=== PATIENT | male | born 1940 | race Caucasian/White ===

== ENCOUNTER 2018-08-10 19:10 | Inpatient (IN) | END 2018-08-15 13:10 | disposition home health service (06) | DRG 871 ==

== ENCOUNTER 2019-01-28 17:01 | Inpatient (IN) | payer MEDICARE, OTHER ==
[2019-01-28] VITALS (8 sets, daily range): BP systolic 95; BP diastolic 50; PULSE 71–90; RESP 20; Ht 172.7 cm; Wt 67.9 kg
[~2019-01-28] VITALS: Ht 172.7 cm; Wt 67.9 kg
[~2019-01-28 17:01] MED LIST: DUTA0.5C PO; ENTA200T2 PO; ETOMIDATE 20 MG INJ ONE; GLIM4TAB PO; INSU100I31 SQ; LEVO750T8 PO; LINA1TAB7 PO; LOSA25TA2 PO; METO-335 PO; PRAM0.12 PO; RIVA20TA5 PO; ROCURONIUM 50 MG INJ ONE; TAMS0.4C2 PO
--- NOTE | 2019-01-28 17:10 | ERD ---
ER Documentation Chief Complaint Chief Complaint SOB HPI The patient is a 78-year-old male, presenting to the ER because of acute shor tness of breath for the last 2 days with cough. He is unable to provide any history, the history is obtained from the industrial photographer and medical record. Past medical history: Hypertension, diabetes mellitus, CAD, atrial fibrillation, depression, Parkinson disease, dementia, cardiomyopathy with low EF of 45%, BPH Past surgical history/social history/review system: Unable to obtain due to his condition Medications Home Meds Reported Medications Insulin Degludec (Tresiba Flextouch U-200) 200 Unit/1 Ml Insuln.pen, 0 SQ DAILY 18-20 UNITS 01/28/19 Linagliptin-Metformin (Jentadueto) 2.5-1,000 Mg Tablet, 1 TAB PO BID, TAB 01/28/19 Digoxin* (Digitek*) 250 Mcg Tablet, 0.25 MG PO DAILY, TAB 01/28/19 Propranolol Hcl* (Propranolol Hcl*) 20 Mg Tablet, 20 MG PO BID, TAB 01/28/19 Glimepiride* (Glimepiride*) 4 Mg Tablet, 4 MG PO WITH BREAKFAST DINNE, TAB 01/28/19 Losartan-Hydrochlorothiazide (Losartan-HCTZ) 50-12.5 Mg Tab, 1 TAB PO DAILY, TAB 01/28/19 Tamsulosin Hcl* (Tamsulosin Hcl*) 0.4 Mg Cap.er.24h, 0.4 MG PO HS, CAP 01/28/19 Entacapone* (Entacapone*) 200 Mg Tablet, 200 MG PO TID, TAB 01/28/19 Pramipexole* (Pramipexole*) 0.125 Mg Tablet, 0.125 MG PO DAILY, TAB 01/28/19 Dutasteride* (Avodart*) 0.5 Mg Capsule, 0.5 MG PO QAM, CAP 01/28/19 Rivaroxaban* (Xarelto*) 20 Mg Tablet, 20 MG PO WITH DINNER, TAB 01/28/19 Discontinued Reported Medications Insulin Degludec (Tresiba Flextouch U-100) 100 Unit/1 Ml Insuln.pen, 18-20 UNIT SQ DAILY 08/10/18 Glimepiride* (Glimepiride*) 4 Mg Tablet, 4 MG PO WITH BREAKFAST DINNE, TAB 08/10/18 Dutasteride* (Avodart*) 0.5 Mg Capsule, 0.5 MG PO DAILY, CAP 08/10/18 Linagliptin/Metformin HCl (Jentadueto Xr 2.5 mg-1,000 mg) 1 Each Tab.bp.24h, 1 EACH PO BID, TAB 08/10/18 Tamsulosin Hcl* (Tamsulosin Hcl*) 0.4 Mg Cap.er.24h, 0.4 MG PO HS, CAP 08/10/18 Pramipexole* (Pramipexole*) 0.125 Mg Tablet, 0.125 MG PO HS, TAB 08/10/18 Entacapone* (Entacapone*) 200 Mg Tablet, 200 MG PO TID, TAB 08/10/18 Discontinued Scripts Levofloxacin* (Levofloxacin*) 750 Mg Tablet, 750 MG PO DAILY for 8 Days, #8 TAB To complete 2 weeks therapy. Prov:PATO BELTRÁN NP 10/22/18 Rivaroxaban* (Xarelto*) 20 Mg Tablet, 20 MG PO WITH BREAKFAST, #30 TAB Prov:PATO BELTRÁN NP 10/22/18 Metoprolol Succinate* (Toprol XL*) 25 Mg Tab.sr.24h, 50 MG PO DAILY, #30 TAB Prov:PATO BELTRÁN NP 10/22/18 Losartan Potassium* (Cozaar*) 25 Mg Tablet, 25 MG PO DAILY, #30 TAB Prov:PATO BELTRÁN NP 10/22/18 Allergies Allergies: Coded Allergies: No Known Allergy (Unverified , 01/28/19) PMhx/Soc History of Surgery: No Hx Neurological Disorder: No Hx Respiratory Disorders: No Hx Cardiac Disorders: Yes (A-FIB) Hx Psychiatric Problems: Yes (DEPRESSION) Hx Miscellaneous Medical Probl: Yes (Parkinson's dz/dementia, Afib, ) Hx Substance Use: No Physical Exam Vitals Vital Signs Date Temp Pulse Resp B/P (MAP) Pulse Ox O2 O2 Flow FiO2 Time Delivery Rate 01/28/19 99.6 110 20 89/55 (66) 97 Mechanical 19:41 Ventilator 01/28/19 129 18 137/86 91 Mechanical 18:34 (103) Ventilator 01/28/19 113 100 40 18:12 3/18/19 139 20 117/81 100 17:38 (93) 01/28/19 20 100 17:20 Physical Exam Const: Spirits Model acute distress.Dehydrated Head: Atraumatic. Eyes: Normal Conjunctiva. ENT: Normal External Ears, Nose and Mouth. Neck: Full range of motion. No meningismus. Resp: Tachypneic, bilateral crackle Cardio: Irregularly irregular Abd: Soft, non distended, normal bowel sounds, non tender. Skin: No petechiae or rashes. Back: No midline or flank tenderness. Ext: Cyanosis Neur: Unable to perform due to his condition Psych: Unable to perform due to his condition Result Diagram: 01/28/19 1745 01/28/19 1745 Results 24 hrs Laboratory Tests Test 01/28/19 17:35 01/28/19 17:45 01/28/19 17:51 01/28/19 18:25 Blood Gas Blood arterial Specimen Source Arterial Blood 01/28/2019 5:50: Date Drawn 40 PM Arterial Blood 7.378 pH (Temp corrected ) Arterial Blood 33.2 mmhg pCO2 (Temp correct) Arterial Blood 262.8 mmHG pO2 (Temp corrected ) Arterial Blood 19.1 mmol/L HCO3 Arterial Blood -5.1 mmol/L Base Excess Arterial Blood 99.2 mmHG Oxygen Saturati on Eliezer Test ACCEPTAB Arterial Blood Right Radial Gas Puncture Site Arterial 0.3 % Blood Carboxyhe moglobin Arterial Blood 0.5 % Methemoglobin Blood Gas A-a 417.0 mmHg O2 Differential Oxyhemoglobin 98.4 % Percent Blood Gas 37.0 C Temperature Blood Gas 20.0 Respiration Rate Blood Gas 20 Actual Respiration Rat e Blood Gas VENT - AC Modality FiO2 100.0 % Blood Gas Tidal 600.0 mL Volume Blood Gas Low 0 cmH2O PEEP Setting Blood Gas 26.0 Inspiratory Pressure Blood Gas Critical Value FLORENCE RAMIREZ Read Back Blood Gas JUANCHO RT Notified Whom Blood Gas 01/28/2019 6:08: Notified Time 45 PM White Blood 23.0 10^3/ul Count Red Blood Count 4.57 10^6/ul Hemoglobin 13.3 g/dl Hematocrit 40.0 % Mean 87.5 fl Corpuscular Volume Mean 29.1 pg Corpuscular Hemoglobin Mean 33.3 g/dl Corpuscular Hemoglobin Conc ent Red Cell 13.5 % Distribution Width Platelet Count 394 10^3/UL Mean Platelet 9.3 fl Volume Immature 1.000 % Granulocytes % Neutrophils % 83.9 % Lymphocytes % 9.5 % Monocytes % 4.5 % Eosinophils % 0.9 % Basophils % 0.2 % Nucleated Red 0.0 /100WBC Blood Cells % Immature 0.220 10^3/ul Granulocytes # Neutrophils # 19.3 10^3/ul Lymphocytes # 2.2 10^3/ul Monocytes # 1.0 10^3/ul Eosinophils # 0.2 10^3/ul Basophils # 0.0 10^3/ul Nucleated Red 0.0 10^3/ul Blood Cells # Prothrombin 18.6 Sec Time Prothrombin 1.5 Time Ratio INR 1.54 International Normalized Rati o Activated 39.6 Sec Partial Thrombo plast Time Sodium Level 137 mmol/L Potassium Level 4.8 mmol/L Chloride Level 95 mmol/L Carbon Dioxide 22 mmol/L Level Anion Gap 20 Blood Urea 15 mg/dl Nitrogen Creatinine 0.94 mg/dl Est Glomerular mL/min Filtrat Rate mL/min Glucose Level 292 mg/dl Calcium Level 9.3 mg/dl Total Bilirubin 0.4 mg/dl Direct 0.00 mg/dl Bilirubin Indirect 0.4 mg/dl Bilirubin Aspartate Amino 35 IU/L Transf (AST/SGO T) Alanine 15 IU/L Aminotransferas e (ALT/SGPT) Alkaline 62 IU/L Phosphatase Troponin I 0.534 ng/ml Total Protein 8.4 g/dl Albumin 4.2 g/dl Globulin 4.20 g/dl Albumin/Globuli 1.00 n Ratio POC Venous 5.0 mmol/L Lactate Urine Color YELLOW Urine Clarity CLOUDY Urine pH 5.0 Urine Specific 1.017 [place] Urine Ketones TRACE mg/dL Urine Nitrite NEGATIVE mg/dL Urine Bilirubin NEGATIVE mg/dL Urine NEGATIVE mg/dL Urobilinogen Urine Leukocyte 3+ Jorge Luis/ul Esterase Urine 173 /HPF Microscopic RBC Urine > 182 /HPF Microscopic WBC Urine 2+ mg/dL Hemoglobin Urine Glucose 3+ mg/dL Urine Total 3+ mg/dl Protein Current Medications Medications Dose Sig/Popeye Start Time Status Last (Trade) Ordered Route PRN Stop Time Admin Dose Reason Admin Propofol 100 ml @ ud STK-MED 01/28/19 DC ONCE .ROUTE 17:39 01/28/19 17:40 Sodium 2,100 ml @ BOLUS X1 01/28/19 DC 01/28/19 Chloride 1,050 mls/hr ONCE IV 18:00 18:17 01/28/19 19:59 Vancomycin 250 ml @ ONCE ONCE 01/28/19 DC 01/28/19 HCl 125 mls/hr IVPB 18:00 19:35 01/28/19 19:59 Piperacillin 100 ml @ ONCE ONCE 01/28/19 DC 01/28/19 Sod/ 200 mls/hr IVPB 18:00 18:32 Tazobactam 01/28/19 18:29 Sod 250 ml @ TITRATE IV 01/28/19 DC Norepinephrin 1.875 mls/ 20:00 e hr 01/28/19 20:04 250 ml @ TITRATE IV 01/28/19 01/28/19 Norepinephrin 1.875 mls/ 20:30 20:35 e hr Vancomycin VANCOMYCIN PER 01/28/19 HCl (Vanco PER PHARMACY PROTOCOL XX 20:00 Iv Per Pharmacy) Aztreonam 50 ml @ Q12 IVPB 01/28/19 100 mls/hr 21:00 Albuterol 4 puff Q2H RESP 01/28/19 (Ventolin THERAPY PRN 20:00 Hfa) INH SHORTNESS OF BREATH Ipratropium 4 puff Q2H RESP 01/28/19 [place] THERAPY PRN 20:00 (Atrovent INH Hfa) SHORTNESS OF BREATH 650 mg Q6H PRN 01/28/19 Acetaminophen PO PAIN 20:00 (Tylenol LEVEL 1-3 OR Liquid) FEVER 40 mg DAILY@06 01/29/19 Pantoprazole IV 06:00 (Protonix Iv) Sodium 1,000 ml @ Q1H ONCE 01/28/19 Chloride 1,000 mls/hr IV 20:30 01/28/19 21:29 Procedures/[place] [address] Radiology Main Line: [phone] DIAGNOSTIC IMAGING REPORT Patient: MINOR ALMAGUER : 1940 Age: 78 Sex: M MR #: [id number] DOS: 01/28/19 1711 Ordering MD: FLORENCE RAMIREZ MD Location: E/R Room/Bed: PROCEDURE: XR 1 view Chest. CLINICAL INDICATION: Sepsis. TECHNIQUE: Portable Single frontal view of the chest was obtained. COMPARISON: DR WILSON 10/18/2018 FINDINGS: There is a new endotracheal tube 3.9 cm above the jessica. There is a new nasogastric tube with tip projecting over the left upper quadrant. There is new moderate pulmonary vascular congestion. The heart is normal in size. There is no focal consolidation. There is no pleural effusion. No pneumothorax is identified. The osseous structures are intact. IMPRESSION: New endotracheal tube 3.9 cm above the jessica. New nasogastric tube with tip projecting over the left upper quadrant. New moderate pulmonary vascular congestion. No evidence for acute cardiopulmonary disease. Further findings as detailed above. RPTAT: PP .Suleiman Lorenzo MD, Date Time Electronically viewed and signed by .Suleiman Lorenzo MD, on 01/28/2019 18:28 .F/ CC: FLORENCE RAMIREZ MD [phone] EKG: Read by emergency physician Rate/Rhythm: Atrial Fibrillation 130 beats/min QRS, ST, T-waves: No ST elevation, LAD, septal Q waves, inferior Q waves Impression: Abnormal EKG MEDICAL MAKING DECISION: The patient is a 78-year-old male, presenting with acute respiratory failure, acute septic shock, acute cystitis, acute bilateral pneumonia, suspected acute NSTEMI. He was intubated immediately with any difficulty, treated with normosaline 30 mm/kg IV, vancomycin IV, Zosyn IV. The Esposito catheter was replaced and the clean urine was submitted The differential diagnoses considered include but are not limited to aspiration pneumonia, pneumonia, UTI, pyelonephritis, osteomyelitis, non-STEMI, ACS, PE MDM: Patient's infectious symptoms have not stabilized and the patient is at risk of rapid decompensation. The patient will be admitted for careful hydration, antibiotic therapy, and infectious source control. SEVERE SEPSIS CRITERIA: Infectious source: UTI,PNA End organ damage indicated by: [Lactate > 2.0 mmol/L Hypotension (SBP < 90 or >40 mmHG drop or MAP < 65) Acute Resp Failure (sat < 92% w/o oxygen) SEPSIS MANAGEMENT Time of recognition of septic shock: 6pm 3 HOUR BUNDLE Blood cultures x 2 before broad-spectrum antibiotics: [Yes] 30 ml/kg NS bolus [Completed] Initial lactate []5 Repeat lactate Pending SEPTIC SHOCK ASSESSMENT: Yes lactic acid > 4.0 Yes Persistent hypotension (SBP < 90 or 40 mmHg drop, MAP < 65) despite 30 mL/kg IV fluid bolus VOLUME REASSESSMENT FOR SEPTIC SHOCK: Reevaluation Time: [] Temp []99.6, BP []89/55, HR []110, RR[]20, Pox []97% Heart [Regular rate & rhythm] Lungs [No crackles] Skin [Warm & dry] Cap Refill [Less than 2 seconds] Peripheral pulses [Radially present] PERSISTENT HYPOTENSION TREATMENT: Comfort care [No] Central line RIJ Vasopressor started Levophed I considered further perfusion assessment with CVP measurement, SCVO2, bedside ultrasound volume assessment, passive leg raise, trial of further fluid bolus. And proceeded with [30 ml/kg fluid bolus of NSS, broad spectrum antibiotics, and admission.] CRITICAL CARE Critical care time [35] minutes Emergent fluid management while maintaining close respiratory support. Provision of immediate and broad-spectrum antibiotic therapy. Simultaneous assessment for possible sources in order to direct targeted therapy. Consideration for invasive and chemical support to prevent cardiopulmonary collapse. Critical care time is independent of procedures performed. Endotracheal Intubation by me: Pre assessment performed. See preceding note for details. Pre-oxygenation performed with 100% oxygen RSI: Performed w/o complication or hypoxic events. Medications as ordered. Blade: [place] ET Tube: 7.5cm Depth: 23cm at the lip Intubation confirmed by colorimetric CO2, equal breath sounds, quiet over the stomach. Departure Diagnosis: Primary Impression: Respiratory failure, acute Additional Impressions: UTI (urinary tract infection) PNA (pneumonia) Elevated troponin Anemia Condition: Critical Comments I discussed the findings with the patient. I discussed the patient with the hospitalist Dr Dent at 7:35 pm who was made aware of the lab, the treatment, the patient condition. The patient is admitted to ICU Disclaimer: Inadvertent spelling and grammatical errors are likely due to EHR/dictation software use and do not reflect on the overall quality of patient care. Also, please note that the electronic time recorded on this note does not necessarily reflect the actual time of the patient encounter. FLORENCE RAMIREZ MD Jan 28, 2019 17:10
[2019-01-28] MEDS ORDERED: PROPOFOL 100 ML ONE (17:39)
[2019-01-28] MEDS ORDERED: PIPER-TAZO 3.375 GM IV (PMX) 100 ML IVPB ONE (18:00)
[2019-01-28] MEDS ORDERED: SOD CHLORIDE 0.9% 2,100 ML IV ONE (18:00)
[2019-01-28] MEDS ORDERED: VANCOMYCIN 1 GM (PMX) 250 ML IVPB ONE (18:00)
[2019-01-28] MEDS ORDERED: RIVA20TA5 PO (18:15)
[2019-01-28] MEDS ORDERED: DUTA0.5C PO (18:16)
[2019-01-28] MEDS ORDERED: ENTA200T2 PO (18:17)
[2019-01-28] MEDS ORDERED: PRAM0.12 PO (18:17)
[2019-01-28] MEDS ORDERED: GLIM4TAB PO (18:18)
[2019-01-28] MEDS ORDERED: LOSA1TAB22 PO (18:18)
[2019-01-28] MEDS ORDERED: TAMS0.4C2 PO (18:18)
[2019-01-28] MEDS ORDERED: DIGO250T PO (18:19)
[2019-01-28] MEDS ORDERED: PROP20TA4 PO (18:19)
[2019-01-28] MEDS ORDERED: LINA1TAB5 PO (18:20)
[2019-01-28] MEDS ORDERED: INSU200I4 SQ (18:22)
[2019-01-28] MEDS ORDERED: NORepinephrine 8MG/250 ML (PMX 250 ML IV SCH ×2 (20:00→20:30)
[2019-01-28] MEDS ORDERED: VANCOMYCIN IV PER PHARMACY XX SCH (20:00)
[2019-01-28] MEDS ORDERED: ALBUTEROL HFA 8 GM INHALER INH PRN (20:00)
[2019-01-28] MEDS ORDERED: IPRATROPIUM (HFA) 12.9 GM INHALER INH PRN (20:00)
[2019-01-28] MEDS ORDERED: SOD CHLORIDE 0.9% 1,000 ML IV ONE (20:30)
--- NOTE | 2019-01-28 20:42 | HP ---
Date/Time of Note Date/Time of Note DATE: 01/28/19 TIME: 20:42 Assessment/Plan VTE Prophylaxis Pharmacological prophylaxis: LMWH Lines/Catheters IV Catheter Type (from Nrs): Saline Lock Central line still needed: Yes (pressor support) Urinary Cath still in place: Yes Reason Cath still needed: other (indicate) (crtical illness) Assessment/Plan Hospital Course This is a 78-year male being admitted to the ICU floor for: #1 septic shock: Secondary to catheter related UTI, pneumonia. Previous blood cultures and urine cultures show Citrobacter. Will treat with vancomycin and aztreonam at the current time, will avoid fluoroquinolones given prolonged QT. Await culture results. Given history of multidrug resistance will consult ID. Continue vasopressor support and and gentle IV fluid hydration given signs of pulmonary congestion. will consult ID, Dr. Farr. #2nstemi: Type I versus type II. Given patient's underlying septic shock this likely could could be type II. Will trend cardiac enzymes, will check an echocardiogram. Previous echocardiogram from October 2018 did show an ejection fraction of approximately 45%. Will consult cardiology Dr. Rodriguez #3 suspect healthcare associated pneumonia: Vanco and aztreonam at the current time, await culture results, respiratory culture through ET tube #4 catheter related UTI: Vanco and aztreonam at the current time #5. Parkinson's disease: Resume home medications when indicated #6. Atrial fibrillation: Check dig level, continue digoxin and propranolol, depending on serial troponins we will determine whether patient will continue with Xarelto or be put on Lovenox #7. BPH: Esposito catheter in place #8 DVT GI prophylaxis: Lovenox versus Xarelto, Protonix Further treatment strategy will be implemented as per the clinical course Greater than 45 minutes of critical care time was spent on the care and manageme nt of this patient. Result Diagram: 01/28/19 1745 01/28/19 1745 Results 24hrs Laboratory Tests Test 01/28/19 17:35 01/28/19 17:45 01/28/19 17:51 01/28/19 18:25 Blood Gas Blood arterial Specimen Source Arterial Blood 01/28/2019 5:50:4 Date Drawn 0 PM Arterial Blood pH 7.378 (Temp corrected) Arterial Blood 33.2 L pCO2 (Temp correct) Arterial Blood 262.8 H pO2 (Temp corrected) Arterial Blood 19.1 L HCO3 Arterial Blood -5.1 L Base Excess Arterial Blood 99.2 Oxygen Saturation Eliezer Test ACCEPTAB Arterial Blood Right Radial Gas Puncture Site Arterial 0.3 Blood Carboxyhemo globin Arterial Blood 0.5 Methemoglobin Blood Gas A-a O2 417.0 H Differential Oxyhemoglobin 98.4 Percent Blood Gas 37.0 Temperature Blood Gas 20.0 Respiration Rate Blood Gas Actual 20 Respiration Rate Blood Gas VENT - AC Modality FiO2 100.0 Blood Gas Tidal 600.0 Volume Blood Gas Low 0 PEEP Setting Blood Gas 26.0 Inspiratory Pressure Blood Gas DR. FLORENCE RAMIREZ Critical Value Read Back Blood Gas AnnCINDY RT Notified Whom Blood Gas 01/28/2019 6:08:4 Notified Time 5 PM White Blood Count 23.0 #H Red Blood Count 4.57 L Hemoglobin 13.3 L Hematocrit 40.0 L Mean Corpuscular 87.5 Volume Mean Corpuscular 29.1 Hemoglobin Mean Corpuscular 33.3 Hemoglobin Concen t Red Cell 13.5 Distribution Width Platelet Count 394 # Mean Platelet 9.3 Volume Immature 1.000 H Granulocytes % Neutrophils % 83.9 H Lymphocytes % 9.5 L Monocytes % 4.5 Eosinophils % 0.9 Basophils % 0.2 Nucleated Red 0.0 Blood Cells % Immature 0.220 H Granulocytes # Neutrophils # 19.3 H Lymphocytes # 2.2 Monocytes # 1.0 H Eosinophils # 0.2 Basophils # 0.0 Nucleated Red 0.0 Blood Cells # Prothrombin Time 18.6 #H Prothrombin Time 1.5 Ratio INR International 1.54 Normalized Ratio Activated 39.6 H Partial Thrombopl ast Time Sodium Level 137 Potassium Level 4.8 Chloride Level 95 L Carbon Dioxide 22 Level Anion Gap 20 H Blood Urea 15 Nitrogen Creatinine 0.94 Est Glomerular Filtrat Rate mL/min Glucose Level 292 H Calcium Level 9.3 Total Bilirubin 0.4 Direct Bilirubin 0.00 Indirect 0.4 Bilirubin Aspartate Amino 35 Transf (AST/SGOT) Alanine 15 Aminotransferase (ALT/SGPT) Alkaline 62 Phosphatase Troponin I 0.534 *H Total Protein 8.4 H Albumin 4.2 Globulin 4.20 H Albumin/Globulin 1.00 Ratio POC Venous 5.0 *H Lactate Urine Color YELLOW Urine Clarity CLOUDY A Urine pH 5.0 Urine Specific 1.017 [place] Urine Ketones TRACE A Urine Nitrite NEGATIVE Urine Bilirubin NEGATIVE Urine NEGATIVE Urobilinogen Urine Leukocyte 3+ H Esterase Urine Microscopic 173 H RBC Urine Microscopic > 182 H WBC Urine Hemoglobin 2+ H Urine Glucose 3+ H Urine Total 3+ H Protein HPI/ROS Admit Date/Time Admit Date/Time Hx of Present Illness Chief complaint: Shortness of breath for last 2 days with cough Unable to get history from the patient as patient was currently intubated following history was obtained from the ED physician documentation 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 The patient is a 78-year-old male, presenting to the ER because of acute shortness of breath for the last 2 days with cough. Patient was brought in from [facility]. Apparently along the way patient did vomit 3 times and his oxygen did desaturate down to the 50s and 60s. When patient arrived in the emergency department he was noted to be in acute respiratory distress and patient was subsequently intubated and he did have a central line placed as well. He had a Esposito catheter that was replaced in the emergency department. Allergies: NKDA Medications: See TONYA ROS Subjective hx not possible: pt non-verbal (Currently intubated), pt critical PMH/Family/Social Past Medical History Hypertension, diabetes mellitus, CAD, atrial fibrillation, depression, Parkinson disease, dementia, cardiomyopathy with low EF of 45%, BPH Medications Current Medications Norepinephrine 250 ml @ 1.875 mls/ hr TITRATE IV ; Start 01/28/19 at 20:30 Vancomycin HCl (Vanco Iv Per Pharmacy) VANCOMYCIN PER PHARMACY PER PROTOCOL XX ; Start 01/28/19 at 20:00; Status UNV Aztreonam 50 ml @ 100 mls/hr Q12 IVPB ; Start 01/28/19 at 21:00 Albuterol (Ventolin Hfa) 4 puff Q2H RESP THERAPY PRN INH SHORTNESS OF BREATH; Start 01/28/19 at 20:00 Ipratropium [place] (Atrovent Hfa) 4 puff Q2H RESP THERAPY PRN INH SHORTNESS OF BREATH; Start 01/28/19 at 20:00 Acetaminophen (Tylenol Liquid) 650 mg Q6H PRN PO PAIN LEVEL 1-3 OR FEVER; Start 01/28/19 at 20:00 Pantoprazole (Protonix Iv) 40 mg DAILY@06 IV ; Start 01/29/19 at 06:00 Sodium Chloride 1,000 ml @ 1,000 mls/hr Q1H ONCE IV ; Start 01/28/19 at 20:30; Stop 01/28/19 at 21:29 Coded Allergies: No Known Allergy (Unverified , 01/28/19) Past Surgical History Unknown, unable to obtain given patient's clinical condition Past Surgical Hx: other Family History Significant Family History: other (Unknown, unable to obtain given patient's clinical condition) Social History Unknown, unable to obtain given patient's clinical condition Smoking Status: Unknown if ever smoked Exam/Review of Systems Vital Signs Vitals Vital Signs Date Temp Pulse Resp B/P (MAP) Pulse Ox O2 O2 Flow FiO2 Time Delivery Rate 01/28/19 99.6 110 20 89/55 (66) 97 Mechanical 19:41 Ventilator 01/28/19 40 18:12 Exam Exam General: Patient is currently intubated, connected to vent HEENT: Atraumatic, normocephalic. The pupils are equal, round and reactive. Extraocular motor are intact, intubated connected to vent Neck: Supple with full range of motion. No rigidity or meningismus, right IJ central line Chest: Nontender Lungs: Coarse breath sounds bilaterally Heart: Normal S1-S2, Regular rhythm and rate. Abdomen: Soft , nontender, nondistended , bowel sounds are present. No guarding no rebound tenderness , No masses or organomegaly. No costovertebral temporal angle mass Extremities: Normal to inspection, no edema no cyanosis Neurologic: Intubated, sedated Additional Comments EKG: Sinus tachycardia at approximately 130 bpm, prolonged QT PROCEDURE: XR 1 view Chest. CLINICAL INDICATION: Sepsis. TECHNIQUE: Portable Single frontal view of the chest was obtained. COMPARISON: DR WILSON 10/18/2018 FINDINGS: There is a new endotracheal tube 3.9 cm above the jessica. There is a new nasogastric tube with tip projecting over the left upper quadrant. There is new moderate pulmonary vascular congestion. The heart is normal in size. There is no focal consolidation. There is no pleural effusion. No pneumothorax is identified. The osseous structures are intact. IMPRESSION: New endotracheal tube 3.9 cm above the jessica. New nasogastric tube with tip projecting over the left upper quadrant. New moderate pulmonary vascular congestion. No evidence for acute cardiopulmonary disease. Further findings as detailed above. RPTAT: PP .Suleiman Lorenzo MD, MD Date Time Electronically viewed and signed by .Suleiman Lorenzo MD, MD on 01/28/2019 18:28 .F/ CC: FLORENCE RAMIREZ MD [id number] AINSLEY CRUZ Jan 28, 2019 20:42
[2019-01-28] MEDS ORDERED: PROPOFOL 100 ML IV ONE (21:30)
[2019-01-28] MEDS: ACETAMINOPHEN 650MG/20.3ML CUP PO PRN (22:59)
[2019-01-28] MEDS: AZTREONAM 1 GM/NS (PMX) 50 ML IVPB SCH (23:33)
[2019-01-28] MEDS: ENOXAPARIN 80 MG/0.8 ML SYG SC SCH (23:43)
[2019-01-29] VITALS (71 sets, daily range): BP systolic 84–142; BP diastolic 45–78; PULSE 62–84; RESP 14–28
[2019-01-29] MEDS ORDERED: LORAZEPAM 2 MG INJ IM PRN
[2019-01-29] MEDS ORDERED: FENTAnyl (DRIP) 1000 mcg/100mL 100 ML IV PRN ×2 (03:00)
[2019-01-29] MEDS: SOD CHLORIDE 0.9% 1,000 ML IV SCH ×3 (04:02→23:59)
[2019-01-29] MEDS: VANCOMYCIN 1 GM 250 ML IVPB SCH ×2 (05:10→17:52)
[2019-01-29] MEDS ORDERED: PANTOPRAZOLE 40 MG INJ IV SCH (06:00)
[2019-01-29] MEDS ORDERED: DEXTROSE 50% 50 ML SYRINGE IV PRN ×2 (07:00)
[2019-01-29] MEDS ORDERED: GLUCAGON 1 MG INJ IM PRN (07:00)
[2019-01-29] MEDS ORDERED: GLUCOSE GEL 15 GRAM TUBE BUCCAL PRN (07:00)
[2019-01-29] MEDS ORDERED: GLUCOSE GEL 15 GRAM TUBE PO PRN ×2 (07:00)
[2019-01-29] MEDS: AZTREONAM 1 GM/NS (PMX) 50 ML IVPB SCH ×2 (08:57→20:58)
[2019-01-29] MEDS: DUTASTERIDE 0.5 MG CAP PO SCH (09:00)
[2019-01-29] MEDS ORDERED: PROPRANOLOL 20 MG TAB PO SCH (09:00)
--- NOTE | 2019-01-29 09:31 | CONS ---
Assessment/Plan Assessment/Plan Assessment/Plan (Daily) Chest x-ray was reviewed which is showing mild interstitial pattern. Ventilator setting; patient is currently on CPAP mode pressure support of 10, 30% FiO2. Exhibiting stable weaning parameters. Patient is on Levophed 3.5 mics per minute. Assessment recommendations; 1. Patient with history of chronic indwelling Esposito catheter admitted for UTI and sepsis with interval clinical improvement. 2. Acute encephalopathy possibly metabolic/septic in etiology with interval resolution as well. 3. History of BPH. 4. History of Parkinson's disease. 5. Paroxysmal atrial fibrillation, currently in sinus rhythm. 6. Possibly some element of interstitial lung disease. Continue current medications and other supportive measures. Extubate the patient. Further antibiotic adjustment to be done once culture and sensitivity results are obtained. 40 minutes of critical care time was spent evaluating the patient. Consultation Date/Type/Reason Admit Date/Time Date of Consultation: Jan 29, 2019 Type of Consult Pulmonary/critical care Patient is a 78-year-old male who was brought into the emergency room from [facility] with complaints of shortness of breath and fever. Patient was found to be in respiratory failure and was intubated by the ER physician. Further workup has revealed significant UTI with sepsis. Patient has been started on appropriate antimicrobial regimen. Patient also has been adequately fluid resuscitated and is currently on low-dose Levophed. Despite being intubated patient is completely awake and alert. And did not appear to be in any distress whatsoever. Past medical history; 1. History of BPH with apparently chronic indwelling Esposito catheter. 2. Anemia. 3. Chronic atrial fibrillation. Patient currently in sinus rhythm though. 4. Parkinson's disease. Medications; reviewed. Patient is on Levophed 3.5 mics per minute. Other medications were reviewed as well. Allergies; none. Social history, family history, occupational history is not available. Review of systems; patient denies any shortness of breath chest pain. General exam; elderly male, orally intubated, awake and alert. Currently in no distress. Date/Time of Note DATE: 01/29/19 TIME: 09:26 Past Medical History Home Meds Reported Medications Insulin Degludec (Tresiba Flextouch U-200) 200 Unit/1 Ml Insuln.pen, 0 SQ DAILY 18-20 UNITS 01/28/19 Linagliptin-Metformin (Jentadueto) 2.5-1,000 Mg Tablet, 1 TAB PO BID, TAB 01/28/19 Digoxin* (Digitek*) 250 Mcg Tablet, 0.25 MG PO DAILY, TAB 01/28/19 Propranolol Hcl* (Propranolol Hcl*) 20 Mg Tablet, 20 MG PO BID, TAB 01/28/19 Glimepiride* (Glimepiride*) 4 Mg Tablet, 4 MG PO WITH BREAKFAST DINNE, TAB 01/28/19 Losartan-Hydrochlorothiazide (Losartan-HCTZ) 50-12.5 Mg Tab, 1 TAB PO DAILY, TAB 01/28/19 Tamsulosin Hcl* (Tamsulosin Hcl*) 0.4 Mg Cap.er.24h, 0.4 MG PO HS, CAP 01/28/19 Entacapone* (Entacapone*) 200 Mg Tablet, 200 MG PO TID, TAB 01/28/19 Pramipexole* (Pramipexole*) 0.125 Mg Tablet, 0.125 MG PO DAILY, TAB 01/28/19 Dutasteride* (Avodart*) 0.5 Mg Capsule, 0.5 MG PO QAM, CAP 01/28/19 Rivaroxaban* (Xarelto*) 20 Mg Tablet, 20 MG PO WITH DINNER, TAB 01/28/19 Discontinued Reported Medications Insulin Degludec (Tresiba Flextouch U-100) 100 Unit/1 Ml Insuln.pen, 18-20 UNIT SQ DAILY 08/10/18 Glimepiride* (Glimepiride*) 4 Mg Tablet, 4 MG PO WITH BREAKFAST DINNE, TAB 08/10/18 Dutasteride* (Avodart*) 0.5 Mg Capsule, 0.5 MG PO DAILY, CAP 08/10/18 Linagliptin/Metformin HCl (Jentadueto Xr 2.5 mg-1,000 mg) 1 Each Tab.bp.24h, 1 EACH PO BID, TAB 08/10/18 Tamsulosin Hcl* (Tamsulosin Hcl*) 0.4 Mg Cap.er.24h, 0.4 MG PO HS, CAP 08/10/18 Pramipexole* (Pramipexole*) 0.125 Mg Tablet, 0.125 MG PO HS, TAB 08/10/18 Entacapone* (Entacapone*) 200 Mg Tablet, 200 MG PO TID, TAB 08/10/18 Discontinued Scripts Levofloxacin* (Levofloxacin*) 750 Mg Tablet, 750 MG PO DAILY for 8 Days, #8 TAB To complete 2 weeks therapy. Prov:PATO BELTRÁN NP 10/22/18 Rivaroxaban* (Xarelto*) 20 Mg Tablet, 20 MG PO WITH BREAKFAST, #30 TAB Prov:PATO BELTRÁN NP 10/22/18 Metoprolol Succinate* (Toprol XL*) 25 Mg Tab.sr.24h, 50 MG PO DAILY, #30 TAB Prov:PATO BELTRÁN POTATO [employer]ACHINE 10/22/18 Losartan Potassium* (Cozaar*) 25 Mg Tablet, 25 MG PO DAILY, #30 TAB Prov:PATO BELTRÁN P[employer]INE 10/22/18 Medications Current Medications Norepinephrine 250 ml @ 1.875 mls/ hr TITRATE IV Last administered on 01/28/19at 20:35; Admin Dose 1.875 MLS/HR; Start 01/28/19 at 20:30 Vancomycin HCl (Vanco Iv Per Pharmacy) VANCOMYCIN PER PHARMACY PER PROTOCOL XX ; Start 01/28/19 at 20:00 Aztreonam 50 ml @ 100 mls/hr Q12 IVPB Last administered on 01/29/19at 08:57; Admin Dose 100 MLS/HR; Start 01/28/19 at 21:00 Albuterol (Ventolin Hfa) 4 puff Q2H RESP THERAPY PRN INH SHORTNESS OF BREATH; Start 01/28/19 at 20:00 Ipratropium [place] (Atrovent Hfa) 4 puff Q2H RESP THERAPY PRN INH SHORTNESS OF BREATH; Start 01/28/19 at 20:00 Acetaminophen (Tylenol Liquid) 650 mg Q6H PRN PO PAIN LEVEL 1-3 OR FEVER Last administered on 01/28/19at 22:59; Admin Dose 650 MG; Start 01/28/19 at 20:00 Pantoprazole (Protonix Iv) 40 mg DAILY@06 IV Last administered on 01/29/19 05:10; Admin Dose 40 MG; Start 01/29/19 at 06:00 Vancomycin HCl 250 ml @ 125 mls/hr Q12H IVPB Last administered on 01/29/19at 05:10; Admin Dose 125 MLS/HR; Start 01/29/19 at 06:00 Enoxaparin Sodium (Lovenox) 70 mg Q12 SC Last administered on 01/28/19at 23:43; Admin Dose 70 MG; Start 01/28/19 at 23:30 Lorazepam (Ativan) 2 mg Q2 PRN IM AGITATION; Start 01/29/19 at 00:00 Fentanyl 100 ml @ 2.5 mls/hr TITRATE PRN IV SEDATION Last administered on 01/29/19at 03:03; Admin Dose 2.5 MLS/HR; Start 01/29/19 at 03:00 Sodium Chloride 1,000 ml @ 80 mls/hr [id number] IV Last administered on 01/29/19at 04:02; Admin Dose 80 MLS/HR; Start 01/29/19 at 04:00 Digoxin (Digoxin) 0.25 mg DAILY@1300 PO ; Start 01/29/19 at 13:00 Dutasteride (Avodart) 0.5 mg QAM PO ; Start 01/29/19 at 09:00 Propranolol HCl (Inderal) 20 mg BID PO Last administered on 01/29/19at 09:05; Admin Dose 20 MG; Start 01/29/19 at 09:00 Insulin Aspart (Novolog Insulin Pen) NOVOLOG *MILD* ALGORI... Q4 SC ; Start 01/29/19 at 09:00 Miscellaneous Information 1 ea NOTE XX ; Start 01/29/19 at 07:00 Glucose (Glutose) 15 gm Q15M PRN PO DECREASED GLUCOSE; Start 01/29/19 at 07:00 Glucose (Glutose) 22.5 gm Q15M PRN PO DECREASED GLUCOSE; Start 01/29/19 at 07:0 0 Dextrose (D50w Syringe) 25 ml Q15M PRN IV DECREASED GLUCOSE; Start 01/29/19 at 07:00 Dextrose (D50w Syringe) 50 ml Q15M PRN IV DECREASED GLUCOSE; Start 01/29/19 at 07:00 Glucagon (Glucagen) 1 mg Q15M PRN IM DECREASED GLUCOSE; Start 01/29/19 at 07:00 Glucose (Glutose) 15 gm Q15M PRN BUCCAL DECREASED GLUCOSE; Start 01/29/19 at 07:00 Magnesium Sulfate 3 gm/Dextrose 106 ml @ 35.333 mls/ hr ONCE ONCE IVPB ; Start 01/29/19 at 10:00; Stop 01/29/19 at 12:59 Allergies: Coded Allergies: No Known Allergy (Unverified , 01/28/19) Past Surgical History Past Surgical Hx: other Social History Smoking Status: Unknown if ever smoked Exam/Review of Systems Exam Vitals Vital Signs Date Temp Pulse Resp B/P (MAP) Pulse Ox O2 O2 Flow FiO2 Time Delivery Rate 01/29/19 67 20 124/72 100 07:00 (89) 01/29/19 Mechanical 06:00 Ventilator 01/29/19 35 05:03 01/29/19 98.8 04:00 Intake and Output 01/28/19 01/28/19 01/29/19 1515:00 23:00 07:00 IntakeIntake Total 35.725 ml 1255.325 ml OutputOutput Total 212 ml 936 ml BalanceBalance -176.275 ml 319.325 ml Exam H EENT exam; supple neck, no JVD. No lymphadenopathy. Midline trachea. No thyromegaly. Orally intubated. Patient is edentulous. Pupils are small bilaterally. Chest exam; clear to auscultation. S1-S2 audible, no murmurs. Regular rhythm. Abdomen exam; soft, nondistended. Nontender. No organomegaly. No scars. Bowel sounds audible. Extremity exam; no peripheral edema. Pulses 2+ bilaterally. PROFILE TRIMMER exam; no focal deficit. Results Result Diagram: 01/29/19 0457 01/29/19 0457 Results 24hrs Laboratory Tests Test 01/28/19 17:35 01/28/19 17:45 01/28/19 17:51 01/28/19 18:25 Blood Gas Blood arterial Specimen Source Arterial Blood 01/28/2019 5:50:4 Date Drawn 0 PM Arterial Blood pH 7.378 (Temp corrected) Arterial Blood 33.2 L pCO2 (Temp correct) Arterial Blood 262.8 H pO2 (Temp corrected) Arterial Blood 19.1 L HCO3 Arterial Blood -5.1 L Base Excess Arterial Blood 99.2 Oxygen Saturation Eliezer Test ACCEPTAB Arterial Blood Right Radial Gas Puncture Site Arterial 0.3 Blood Carboxyhemo globin Arterial Blood 0.5 Methemoglobin Blood Gas A-a O2 417.0 H Differential Oxyhemoglobin 98.4 Percent Blood Gas 37.0 Temperature Blood Gas 20.0 Respiration Rate Blood Gas Actual 20 Respiration Rate Blood Gas VENT - AC Modality FiO2 100.0 Blood Gas Tidal 600.0 Volume Blood Gas Low 0 PEEP Setting Blood Gas 26.0 Inspiratory Pressure Blood Gas DR. FLORENCE RAMIREZ Critical Value Read Back Blood Gas JUANCHO RT Notified Whom Blood Gas 01/28/2019 6:08:4 Notified Time 5 PM White Blood Count 23.0 #H Red Blood Count 4.57 L Hemoglobin 13.3 L Hematocrit 40.0 L Mean Corpuscular 87.5 Volume Mean Corpuscular 29.1 Hemoglobin Mean Corpuscular 33.3 Hemoglobin Concen t Red Cell 13.5 Distribution Width Platelet Count 394 # Mean Platelet 9.3 Volume Immature 1.000 H Granulocytes % Neutrophils % 83.9 H Lymphocytes % 9.5 L Monocytes % 4.5 Eosinophils % 0.9 Basophils % 0.2 Nucleated Red 0.0 Blood Cells % Immature 0.220 H Granulocytes # Neutrophils # 19.3 H Lymphocytes # 2.2 Monocytes # 1.0 H Eosinophils # 0.2 Basophils # 0.0 Nucleated Red 0.0 Blood Cells # Prothrombin Time 18.6 #H Prothrombin Time 1.5 Ratio INR International 1.54 Normalized Ratio Activated 39.6 H Partial Thrombopl ast Time Sodium Level 137 Potassium Level 4.8 Chloride Level 95 L Carbon Dioxide 22 Level Anion Gap 20 H Blood Urea 15 Nitrogen Creatinine 0.94 Est Glomerular Filtrat Rate mL/min Glucose Level 292 H Calcium Level 9.3 Total Bilirubin 0.4 Direct Bilirubin 0.00 Indirect 0.4 Bilirubin Aspartate Amino 35 Transf (AST/SGOT) Alanine 15 Aminotransferase (ALT/SGPT) Alkaline 62 Phosphatase Troponin I 0.534 *H Total Protein 8.4 H Albumin 4.2 Globulin 4.20 H Albumin/Globulin 1.00 Ratio POC Venous 5.0 *H Lactate Urine Color YELLOW Urine Clarity CLOUDY A Urine pH 5.0 Urine Specific 1.017 [place] Urine Ketones TRACE A Urine Nitrite NEGATIVE Urine Bilirubin NEGATIVE Urine NEGATIVE Urobilinogen Urine Leukocyte 3+ H Esterase Urine Microscopic 173 H RBC Urine Microscopic > 182 H WBC Urine Hemoglobin 2+ H Urine Glucose 3+ H Urine Total 3+ H Protein Test 01/28/19 21:13 01/28/19 21:29 01/28/19 23:38 01/29/19 02:33 Creatine Kinase 156 458 #H Creatine Kinase 2.1 1.3 Index Creatinine Kinase 3.21 H 5.75 H MB (Mass) Troponin I 1.190 *H 2.410 *H POC Venous 1.8 Lactate Lactic Acid Level 1.4 Test 01/29/19 04:57 01/29/19 08:00 White Blood Count 17.6 #H Red Blood Count 3.33 #L Hemoglobin 9.7 #L Hematocrit 28.6 #L Mean Corpuscular 85.9 Volume Mean Corpuscular 29.1 Hemoglobin Mean Corpuscular 33.9 Hemoglobin Concen t Red Cell 13.6 Distribution Width Platelet Count 300 # Mean Platelet 9.4 Volume Immature 1.100 H Granulocytes % Neutrophils % 72.3 Lymphocytes % 18.6 Monocytes % 7.4 Eosinophils % 0.3 Basophils % 0.3 Nucleated Red 0.0 Blood Cells % Immature 0.190 H Granulocytes # Neutrophils # 12.7 H Lymphocytes # 3.3 H Monocytes # 1.3 H Eosinophils # 0.1 Basophils # 0.1 Nucleated Red 0.0 Blood Cells # Sodium Level 140 Potassium Level 3.6 Chloride Level 106 # Carbon Dioxide 21 Level Anion Gap 13 # Blood Urea 13 Nitrogen Creatinine 0.83 Est Glomerular Filtrat Rate mL/min Glucose Level 232 H Hemoglobin A1c 6.9 H Lactic Acid Level 1.3 Calcium Level 8.3 L Magnesium Level 1.5 L Total Bilirubin 0.3 Direct Bilirubin 0.00 Indirect 0.3 Bilirubin Aspartate Amino 32 Transf (AST/SGOT) Alanine 25 Aminotransferase (ALT/SGPT) Alkaline 49 Phosphatase Total Protein 6.3 # Albumin 3.1 #L Globulin 3.20 Albumin/Globulin 0.96 Ratio Triglycerides 128 Level Cholesterol Level 142 LDL Cholesterol, 90 Calculated HDL Cholesterol 26 L Cholesterol/HDL 5.4 Ratio Thyroid 1.760 Stimulating Hormone (TSH) Creatine Kinase 452 H Creatine Kinase 1.2 Index Creatinine Kinase 5.21 H MB (Mass) Troponin I 1.840 *H Medications Medication Current Medications Norepinephrine 250 ml @ 1.875 mls/ hr TITRATE IV Last administered on 01/28/19at 20:35; Admin Dose 1.875 MLS/HR; Start 01/28/19 at 20:30 Vancomycin HCl (Vanco Iv Per Pharmacy) VANCOMYCIN PER PHARMACY PER PROTOCOL XX ; Start 01/28/19 at 20:00 Aztreonam 50 ml @ 100 mls/hr Q12 IVPB Last administered on 01/29/19at 08:57; Admin Dose 100 MLS/HR; Start 01/28/19 at 21:00 Albuterol (Ventolin Hfa) 4 puff Q2H RESP THERAPY PRN INH SHORTNESS OF BREATH; Start 01/28/19 at 20:00 Ipratropium [place] (Atrovent Hfa) 4 puff Q2H RESP THERAPY PRN INH SHORTNESS OF BREATH; Start 01/28/19 at 20:00 Acetaminophen (Tylenol Liquid) 650 mg Q6H PRN PO PAIN LEVEL 1-3 OR FEVER Last administered on 01/28/19at 22:59; Admin Dose 650 MG; Start 01/28/19 at 20:00 Pantoprazole (Protonix Iv) 40 mg DAILY@06 IV Last administered on 01/29/19 05:10; Admin Dose 40 MG; Start 01/29/19 at 06:00 Vancomycin HCl 250 ml @ 125 mls/hr Q12H IVPB Last administered on 01/29/19 05:10; Admin Dose 125 MLS/HR; Start 01/29/19 at 06:00 Enoxaparin Sodium (Lovenox) 70 mg Q12 SC Last administered on 01/28/19 23:43; Admin Dose 70 MG; Start 01/28/19 at 23:30 Lorazepam (Ativan) 2 mg Q2 PRN IM AGITATION; Start 01/29/19 at 00:00 Fentanyl 100 ml @ 2.5 mls/hr TITRATE PRN IV SEDATION Last administered on 01/29/19 03:03; Admin Dose 2.5 MLS/HR; Start 01/29/19 at 03:00 Sodium Chloride 1,000 ml @ 80 mls/hr [id number] IV Last administered on 01/29/19 04:02; Admin Dose 80 MLS/HR; Start 01/29/19 at 04:00 Digoxin (Digoxin) 0.25 mg DAILY@1300 PO ; Start 01/29/19 at 13:00 Dutasteride (Avodart) 0.5 mg QAM PO ; Start 01/29/19 at 09:00 Propranolol HCl (Inderal) 20 mg BID PO Last administered on 01/29/19 09:05; Admin Dose 20 MG; Start 01/29/19 at 09:00 Insulin Aspart (Novolog Insulin Pen) NOVOLOG *MILD* ALGORI... Q4 SC ; Start 01/29/19 at 09:00 Miscellaneous Information 1 ea NOTE XX ; Start 01/29/19 at 07:00 Glucose (Glutose) 15 gm Q15M PRN PO DECREASED GLUCOSE; Start 01/29/19 at 07:00 Glucose (Glutose) 22.5 gm Q15M PRN PO DECREASED GLUCOSE; Start 01/29/19 at 07:00 Dextrose (D50w Syringe) 25 ml Q15M PRN IV DECREASED GLUCOSE; Start 01/29/19 at 07:00 Dextrose (D50w Syringe) 50 ml Q15M PRN IV DECREASED GLUCOSE; Start 01/29/19 at 07:00 Glucagon (Glucagen) 1 mg Q15M PRN IM DECREASED GLUCOSE; Start 01/29/19 at 07:00 Glucose (Glutose) 15 gm Q15M PRN BUCCAL DECREASED GLUCOSE; Start 01/29/19 at 07:00 Magnesium Sulfate 3 gm/Dextrose 106 ml @ 35.333 mls/ hr ONCE ONCE IVPB ; Start 01/29/19 at 10:00; Stop 01/29/19 at 12:59 JADA TAVERAS 19, 2019 09:31
[2019-01-29] MEDS: ENOXAPARIN 80 MG/0.8 ML SYG SC SCH ×2 (09:33→21:01)
[2019-01-29] MEDS: INSULIN ASPART [NOVOLOG] 3 ML PEN SC SCH ×4 (09:34→21:00)
[2019-01-29] MEDS ORDERED: MAGNESIUM SULFATE 3 GM in DEXTROSE 5% 100 ML IVPB ONE (10:00)
--- NOTE | 2019-01-29 12:33 | PN ---
Date/Time of Note Date/Time of Note DATE: 01/29/19 TIME: 12:29 Assessment/Plan VTE Prophylaxis Risk score (from Ns)>0 risk: 7 SCD applied (from Ns): Yes Pharmacological prophylaxis: LMWH Lines/Catheters IV Catheter Type (from Nrsg): Central Line Central line still needed: Yes Urinary Cath still in place: Yes Reason Cath still needed: urinary retention Assessment/Plan Assessment/Plan 78 yo man with history of Parkinson's disease, paroxysmal atrial fibrillation, and benign prostatic hypertrophy presenting with acute respiratory failure #septic shock: Secondary to catheter related UTI, pneumonia. Previous blood cultures and urine cultures show Citrobacter. Will treat with vancomycin and aztreonam at the current time, will avoid fluoroquinolones given prolonged QT. Await culture results. Given history of multidrug resistance will consult ID. Continue vasopressor support and and gentle IV fluid hydration given signs of pulmonary congestion. will consult ID, Dr. Farr. #nstemi: Type I versus type II. Given patient's underlying septic shock this likely could could be type II. Will trend cardiac enzymes, will check an echocardiogram. Previous echocardiogram from October 2018 did show an ejection fraction of approximately 45%. Will consult cardiology Dr. Rodriguez # suspect healthcare associated pneumonia: Vanco and aztreonam at the current time, await culture results, respiratory culture through ET tube, extubation per pulmonary # catheter related UTI: Vanco and aztreonam at the current time # Parkinson's disease: Resume home medications when indicated # Atrial fibrillation: Check dig level, continue digoxin and propranolol, depending on serial troponins we will determine whether patient will continue with Xarelto or be put on Lovenox # BPH: Esposito catheter in place # DVT GI prophylaxis: Lovenox versus Xarelto, Protonix Further treatment strategy will be implemented as per the clinical course Greater than 45 minutes of critical care time was spent on the care and management of this patient. Result Diagram: 01/29/19 0457 01/29/19 0457 Subjective 24 Hr Interval Summary Free Text/Dictation No acute overnight events. Off pressors Waking up off sedation, tolerating CPAP trial on vent Exam/Review of Systems Exam Vitals Vital Signs Date Temp Pulse Resp B/P (MAP) Pulse Ox O2 O2 Flow FiO2 Time Delivery Rate 01/29/19 11:00 01/29/19 69 17 97 10:45 01/29/19 Nasal 2.0 09:29 Cannula 01/29/19 30 08:29 01/29/19 98.2 08:00 Intake and Output 01/28/19 01/28/19 01/29/19 1515:00 23:00 07:00 IntakeIntake Total 35.725 ml 1255.325 ml OutputOutput Total 212 ml 936 ml BalanceBalance -176.275 ml 319.325 ml Exam General: Patient is currently intubated, connected to vent HEENT: Atraumatic, normocephalic. The pupils are equal, round and reactive. Extraocular motor are intact, intubated connected to vent Neck: Supple with full range of motion. No rigidity or meningismus, right IJ central line Chest: Nontender Lungs: Coarse breath sounds bilaterally Heart: Normal S1-S2, Regular rhythm and rate. Abdomen: Soft , nontender, nondistended , bowel sounds are present. No guarding no rebound tenderness , No masses or organomegaly. No costovertebral temporal angle mass Extremities: Normal to inspection, no edema no cyanosis Neurologic: Intubated, sedated Results Results 24hrs Laboratory Tests Test 01/28/19 17:35 01/28/19 17:45 01/28/19 17:51 01/28/19 18:25 Blood Gas Blood arterial Specimen Source Arterial Blood 01/28/2019 5:50:4 Date Drawn 0 PM Arterial Blood pH 7.378 (Temp corrected) Arterial Blood 33.2 L pCO2 (Temp correct) Arterial Blood 262.8 H pO2 (Temp corrected) Arterial Blood 19.1 L HCO3 Arterial Blood -5.1 L Base Excess Arterial Blood 99.2 Oxygen Saturation Eliezer Test ACCEPTAB Arterial Blood Right Radial Gas Puncture Site Arterial 0.3 Blood Carboxyhemo globin Arterial Blood 0.5 Methemoglobin Blood Gas A-a O2 417.0 H Differential Oxyhemoglobin 98.4 Percent Blood Gas 37.0 Temperature Blood Gas 20.0 Respiration Rate Blood Gas Actual 20 Respiration Rate Blood Gas VENT - AC Modality FiO2 100.0 Blood Gas Tidal 600.0 Volume Blood Gas Low 0 PEEP Setting Blood Gas 26.0 Inspiratory Pressure Blood Gas DR. FLORENCE RAMIREZ Critical Value Read Back Blood Gas JUANCHO RT Notified Whom Blood Gas 01/28/2019 6:08:4 Notified Time 5 PM White Blood Count 23.0 #H Red Blood Count 4.57 L Hemoglobin 13.3 L Hematocrit 40.0 L Mean Corpuscular 87.5 Volume Mean Corpuscular 29.1 Hemoglobin Mean Corpuscular 33.3 Hemoglobin Concen t Red Cell 13.5 Distribution Width Platelet Count 394 # Mean Platelet 9.3 Volume Immature 1.000 H Granulocytes % Neutrophils % 83.9 H Lymphocytes % 9.5 L Monocytes % 4.5 Eosinophils % 0.9 Basophils % 0.2 Nucleated Red 0.0 Blood Cells % Immature 0.220 H Granulocytes # Neutrophils # 19.3 H Lymphocytes # 2.2 Monocytes # 1.0 H Eosinophils # 0.2 Basophils # 0.0 Nucleated Red 0.0 Blood Cells # Prothrombin Time 18.6 #H Prothrombin Time 1.5 Ratio INR International 1.54 Normalized Ratio Activated 39.6 H Partial Thrombopl ast Time Sodium Level 137 Potassium Level 4.8 Chloride Level 95 L Carbon Dioxide 22 Level Anion Gap 20 H Blood Urea 15 Nitrogen Creatinine 0.94 Est Glomerular Filtrat Rate mL/min Glucose Level 292 H Calcium Level 9.3 Total Bilirubin 0.4 Direct Bilirubin 0.00 Indirect 0.4 Bilirubin Aspartate Amino 35 Transf (AST/SGOT) Alanine 15 Aminotransferase (ALT/SGPT) Alkaline 62 Phosphatase Troponin I 0.534 *H Total Protein 8.4 H Albumin 4.2 Globulin 4.20 H Albumin/Globulin 1.00 Ratio POC Venous 5.0 *H Lactate Urine Color YELLOW Urine Clarity CLOUDY A Urine pH 5.0 Urine Specific 1.017 [place] Urine Ketones TRACE A Urine Nitrite NEGATIVE Urine Bilirubin NEGATIVE Urine NEGATIVE Urobilinogen Urine Leukocyte 3+ H Esterase Urine Microscopic 173 H RBC Urine Microscopic > 182 H WBC Urine Hemoglobin 2+ H Urine Glucose 3+ H Urine Total 3+ H Protein Test 01/28/19 21:13 01/28/19 21:29 01/28/19 23:38 01/29/19 02:33 Creatine Kinase 156 458 #H Creatine Kinase 2.1 1.3 Index Creatinine Kinase 3.21 H 5.75 H MB (Mass) Troponin I 1.190 *H 2.410 *H POC Venous 1.8 Lactate Lactic Acid Level 1.4 Test 01/29/19 04:57 01/29/19 08:00 01/29/19 09:16 White Blood Count 17.6 #H Red Blood Count 3.33 #L Hemoglobin 9.7 #L Hematocrit 28.6 #L Mean Corpuscular 85.9 Volume Mean Corpuscular 29.1 Hemoglobin Mean Corpuscular 33.9 Hemoglobin Concen t Red Cell 13.6 Distribution Width Platelet Count 300 # Mean Platelet 9.4 Volume Immature 1.100 H Granulocytes % Neutrophils % 72.3 Lymphocytes % 18.6 Monocytes % 7.4 Eosinophils % 0.3 Basophils % 0.3 Nucleated Red 0.0 Blood Cells % Immature 0.190 H Granulocytes # Neutrophils # 12.7 H Lymphocytes # 3.3 H Monocytes # 1.3 H Eosinophils # 0.1 Basophils # 0.1 Nucleated Red 0.0 Blood Cells # Sodium Level 140 Potassium Level 3.6 Chloride Level 106 # Carbon Dioxide 21 Level Anion Gap 13 # Blood Urea 13 Nitrogen Creatinine 0.83 Est Glomerular Filtrat Rate mL/min Glucose Level 232 H Hemoglobin A1c 6.9 H Lactic Acid Level 1.3 Calcium Level 8.3 L Magnesium Level 1.5 L Total Bilirubin 0.3 Direct Bilirubin 0.00 Indirect 0.3 Bilirubin Aspartate Amino 32 Transf (AST/SGOT) Alanine 25 Aminotransferase (ALT/SGPT) Alkaline 49 Phosphatase Total Protein 6.3 # Albumin 3.1 #L Globulin 3.20 Albumin/Globulin 0.96 Ratio Triglycerides 128 Level Cholesterol Level 142 LDL Cholesterol, 90 Calculated HDL Cholesterol 26 L Cholesterol/HDL 5.4 Ratio Thyroid 1.760 Stimulating Hormone (TSH) Creatine Kinase 452 H Creatine Kinase 1.2 Index Creatinine Kinase 5.21 H MB (Mass) Troponin I 1.840 *H Bedside Glucose 214 Medications Medication Current Medications Norepinephrine 250 ml @ 1.875 mls/ hr TITRATE IV Last administered on 01/28/19at 20:35; Admin Dose 1.875 MLS/HR; Start 01/28/19 at 20:30 Vancomycin HCl (Vanco Iv Per Pharmacy) VANCOMYCIN PER PHARMACY PER PROTOCOL XX ; Start 01/28/19 at 20:00 Aztreonam 50 ml @ 100 mls/hr Q12 IVPB Last administered on 01/29/19at 08:57; Admin Dose 100 MLS/HR; Start 01/28/19 at 21:00 Albuterol (Ventolin Hfa) 4 puff Q2H RESP THERAPY PRN INH SHORTNESS OF BREATH; Start 01/28/19 at 20:00 Ipratropium [place] (Atrovent Hfa) 4 puff Q2H RESP THERAPY PRN INH SHORTNESS OF BREATH; Start 01/28/19 at 20:00 Acetaminophen (Tylenol Liquid) 650 mg Q6H PRN PO PAIN LEVEL 1-3 OR FEVER Last administered on 01/28/19 22:59; Admin Dose 650 MG; Start 01/28/19 at 20:00 Vancomycin HCl 250 ml @ 125 mls/hr Q12H IVPB Last administered on 01/29/19 05:10; Admin Dose 125 MLS/HR; Start 01/29/19 at 06:00 Enoxaparin Sodium (Lovenox) 70 mg Q12 SC Last administered on 01/29/19 09:33; Admin Dose 70 MG; Start 01/28/19 at 23:30 Lorazepam (Ativan) 2 mg Q2 PRN IM AGITATION; Start 01/29/19 at 00:00 Fentanyl 100 ml @ 2.5 mls/hr TITRATE PRN IV SEDATION Last administered on 01/29/19 03:03; Admin Dose 2.5 MLS/HR; Start 01/29/19 at 03:00 Sodium Chloride 1,000 ml @ 80 mls/hr [id number] IV Last administered on 01/29/19 04:02; Admin Dose 80 MLS/HR; Start 01/29/19 at 04:00 Digoxin (Digoxin) 0.25 mg DAILY@1300 PO ; Start 01/29/19 at 13:00 Dutasteride (Avodart) 0.5 mg QAM PO ; Start 01/29/19 at 09:00 Propranolol HCl (Inderal) 20 mg BID PO Last administered on 01/29/19 09:05; Admin Dose 20 MG; Start 01/29/19 at 09:00 Insulin Aspart (Novolog Insulin Pen) NOVOLOG *MILD* ALGORI... Q4 SC Last administered on 01/29/19 09:34; Admin Dose 2 UNIT; Start 01/29/19 at 09:00 Miscellaneous Information 1 ea NOTE XX ; Start 01/29/19 at 07:00 Glucose (Glutose) 15 gm Q15M PRN PO DECREASED GLUCOSE; Start 01/29/19 at 07:00 Glucose (Glutose) 22.5 gm Q15M PRN PO DECREASED GLUCOSE; Start 01/29/19 at 07:00 Dextrose (D50w Syringe) 25 ml Q15M PRN IV DECREASED GLUCOSE; Start 01/29/19 at 07:00 Dextrose (D50w Syringe) 50 ml Q15M PRN IV DECREASED GLUCOSE; Start 01/29/19 at 07:00 Glucagon (Glucagen) 1 mg Q15M PRN IM DECREASED GLUCOSE; Start 01/29/19 at 07:00 Glucose (Glutose) 15 gm Q15M PRN BUCCAL DECREASED GLUCOSE; Start 01/29/19 at 07:00 Magnesium Sulfate 3 gm/Dextrose 106 ml @ 35.333 mls/ hr ONCE ONCE IVPB Last administered on 01/29/19at 10:35; Admin Dose 35.333 MLS/HR; Start 01/29/19 at 10:00; Stop 01/29/19 at 12:59 Famotidine (Pepcid Iv) 20 mg BID IV ; Start 01/30/19 at 09:00 DALTON VUONG MD Jan 29, 2019 12:33
[2019-01-29] MEDS ORDERED: DIGOXIN 0.25 MG TAB PO SCH (13:00)
--- NOTE | 2019-01-29 15:03 | CONS ---
Assessment/Plan Assessment/Plan Hospital Course (Demo Recall) Severe sepsis Acute respiratory failure Pneumonia Urinary tract infection Acute possibly on chronic encephalopathy NSTEMI Atrial fibrillation Parkinson's dementia BPH Consultation Date/Type/Reason Admit Date/Time Type of Consult id Date/Time of Note DATE: 01/29/19 TIME: 15:03 Past Medical History Home Meds Reported Medications Insulin Degludec (Tresiba Flextouch U-200) 200 Unit/1 Ml Insuln.pen, 0 SQ DAILY 18-20 UNITS 01/28/19 Linagliptin-Metformin (Jentadueto) 2.5-1,000 Mg Tablet, 1 TAB PO BID, TAB 01/28/19 Digoxin* (Digitek*) 250 Mcg Tablet, 0.25 MG PO DAILY, TAB 01/28/19 Propranolol Hcl* (Propranolol Hcl*) 20 Mg Tablet, 20 MG PO BID, TAB 01/28/19 Glimepiride* (Glimepiride*) 4 Mg Tablet, 4 MG PO WITH BREAKFAST DINNE, TAB 01/28/19 Losartan-Hydrochlorothiazide (Losartan-HCTZ) 50-12.5 Mg Tab, 1 TAB PO DAILY, TAB 01/28/19 Tamsulosin Hcl* (Tamsulosin Hcl*) 0.4 Mg Cap.er.24h, 0.4 MG PO HS, CAP 01/28/19 Entacapone* (Entacapone*) 200 Mg Tablet, 200 MG PO TID, TAB 01/28/19 Pramipexole* (Pramipexole*) 0.125 Mg Tablet, 0.125 MG PO DAILY, TAB 01/28/19 Dutasteride* (Avodart*) 0.5 Mg Capsule, 0.5 MG PO QAM, CAP 01/28/19 Rivaroxaban* (Xarelto*) 20 Mg Tablet, 20 MG PO WITH DINNER, TAB 01/28/19 Discontinued Reported Medications Insulin Degludec (Tresiba Flextouch U-100) 100 Unit/1 Ml Insuln.pen, 18-20 UNIT SQ DAILY 08/10/18 Glimepiride* (Glimepiride*) 4 Mg Tablet, 4 MG PO WITH BREAKFAST DINNE, TAB 08/10/18 Dutasteride* (Avodart*) 0.5 Mg Capsule, 0.5 MG PO DAILY, CAP 08/10/18 Linagliptin/Metformin HCl (Jentadueto Xr 2.5 mg-1,000 mg) 1 Each Tab.bp.24h, 1 EACH PO BID, TAB 08/10/18 Tamsulosin Hcl* (Tamsulosin Hcl*) 0.4 Mg Cap.er.24h, 0.4 MG PO HS, CAP 08/10/18 Pramipexole* (Pramipexole*) 0.125 Mg Tablet, 0.125 MG PO HS, TAB 08/10/18 Entacapone* (Entacapone*) 200 Mg Tablet, 200 MG PO TID, TAB 08/10/18 Discontinued Scripts Levofloxacin* (Levofloxacin*) 750 Mg Tablet, 750 MG PO DAILY for 8 Days, #8 TAB To complete 2 weeks therapy. Prov:PATO BELTRÁN NP 10/22/18 Rivaroxaban* (Xarelto*) 20 Mg Tablet, 20 MG PO WITH BREAKFAST, #30 TAB Prov:PATO BELTRÁN NP 10/22/18 Metoprolol Succinate* (Toprol XL*) 25 Mg Tab.sr.24h, 50 MG PO DAILY, #30 TAB Prov:PATO BELTRÁN NP 10/22/18 Losartan Potassium* (Cozaar*) 25 Mg Tablet, 25 MG PO DAILY, #30 TAB Prov:PATO BELTRÁN NP 10/22/18 Medications Current Medications Norepinephrine 250 ml @ 1.875 mls/ hr TITRATE IV Last administered on 01/28/19at 20:35; Admin Dose 1.875 MLS/HR; Start 01/28/19 at 20:30 Vancomycin HCl (Vanco Iv Per Pharmacy) VANCOMYCIN PER PHARMACY PER PROTOCOL XX ; Start 01/28/19 at 20:00 Aztreonam 50 ml @ 100 mls/hr Q12 IVPB Last administered on 01/29/19at 08:57; Admin Dose 100 MLS/HR; Start 01/28/19 at 21:00 Albuterol (Ventolin Hfa) 4 puff Q2H RESP THERAPY PRN INH SHORTNESS OF BREATH; Start 01/28/19 at 20:00 Ipratropium [place] (Atrovent Hfa) 4 puff Q2H RESP THERAPY PRN INH SHORTNESS OF BREATH; Start 01/28/19 at 20:00 Acetaminophen (Tylenol Liquid) 650 mg Q6H PRN PO PAIN LEVEL 1-3 OR FEVER Last administered on 01/28/19 22:59; Admin Dose 650 MG; Start 01/28/19 at 20:00 Vancomycin HCl 250 ml @ 125 mls/hr Q12H IVPB Last administered on 01/29/19 05:10; Admin Dose 125 MLS/HR; Start 01/29/19 at 06:00 Enoxaparin Sodium (Lovenox) 70 mg Q12 SC Last administered on 01/29/19 09:33; Admin Dose 70 MG; Start 01/28/19 at 23:30 Lorazepam (Ativan) 2 mg Q2 PRN IM AGITATION; Start 01/29/19 at 00:00 Fentanyl 100 ml @ 2.5 mls/hr TITRATE PRN IV SEDATION Last administered on 01/29/19 03:03; Admin Dose 2.5 MLS/HR; Start 01/29/19 at 03:00 Sodium Chloride 1,000 ml @ 80 mls/hr [id number] IV Last administered on 01/29/19 04:02; Admin Dose 80 MLS/HR; Start 01/29/19 at 04:00 Digoxin (Digoxin) 0.25 mg DAILY@1300 PO ; Start 01/29/19 at 13:00 Dutasteride (Avodart) 0.5 mg QAM PO ; Start 01/29/19 at 09:00 Propranolol HCl (Inderal) 20 mg BID PO Last administered on 01/29/19 09:05; Admin Dose 20 MG; Start 01/29/19 at 09:00 Insulin Aspart (Novolog Insulin Pen) NOVOLOG *MILD* ALGORI... Q4 SC Last administered on 01/29/19 13:59; Admin Dose 2 UNIT; Start 01/29/19 at 09:00 Miscellaneous Information 1 ea NOTE XX ; Start 01/29/19 at 07:00 Glucose (Glutose) 15 gm Q15M PRN PO DECREASED GLUCOSE; Start 01/29/19 at 07:00 Glucose (Glutose) 22.5 gm Q15M PRN PO DECREASED GLUCOSE; Start 01/29/19 at 07:00 Dextrose (D50w Syringe) 25 ml Q15M PRN IV DECREASED GLUCOSE; Start 01/29/19 at 07:00 Dextrose (D50w Syringe) 50 ml Q15M PRN IV DECREASED GLUCOSE; Start 01/29/19 at 07:00 Glucagon (Glucagen) 1 mg Q15M PRN IM DECREASED GLUCOSE; Start 01/29/19 at 07:00 Glucose (Glutose) 15 gm Q15M PRN BUCCAL DECREASED GLUCOSE; Start 01/29/19 at 07:00 Famotidine (Pepcid Iv) 20 mg BID IV ; Start 01/30/19 at 09:00 Miscellaneous Information (*Rx Drug Level Order Reminder*) VANCO TROUGH @ 1,700 ONCE ONCE XX ; Start 01/30/19 at 17:00; Stop 01/30/19 at 17:01 Allergies: Coded Allergies: No Known Allergy (Unverified , 01/28/19) Past Surgical History Past Surgical Hx: other Social History Smoking Status: Unknown if ever smoked Exam/Review of Systems Exam Vitals Vital Signs Date Temp Pulse Resp B/P (MAP) Pulse Ox O2 O2 Flow FiO2 Time Delivery Rate 01/29/19 69 18 109/53 98 12:30 (71) 01/29/19 98.3 Nasal 2.0 12:00 Cannula 01/29/19 30 08:29 Intake and Output 01/28/19 01/28/19 01/29/19 1515:00 23:00 07:00 IntakeIntake Total 35.725 ml 1255.325 ml OutputOutput Total 212 ml 936 ml BalanceBalance -176.275 ml 319.325 ml Results Result Diagram: 01/29/19 0457 01/29/19 0457 Results 24hrs Laboratory Tests Test 01/28/19 17:35 01/28/19 17:45 01/28/19 17:51 01/28/19 18:25 Blood Gas Blood arterial Specimen Source Arterial Blood 01/28/2019 5:50:4 Date Drawn 0 PM Arterial Blood pH 7.378 (Temp corrected) Arterial Blood 33.2 L pCO2 (Temp correct) Arterial Blood 262.8 H pO2 (Temp corrected) Arterial Blood 19.1 L HCO3 Arterial Blood -5.1 L Base Excess Arterial Blood 99.2 Oxygen Saturation Eliezer Test ACCEPTAB Arterial Blood Right Radial Gas Puncture Site Arterial 0.3 Blood Carboxyhemo globin Arterial Blood 0.5 Methemoglobin Blood Gas A-a O2 417.0 H Differential Oxyhemoglobin 98.4 Percent Blood Gas 37.0 Temperature Blood Gas 20.0 Respiration Rate Blood Gas Actual 20 Respiration Rate Blood Gas VENT - AC Modality FiO2 100.0 Blood Gas Tidal 600.0 Volume Blood Gas Low 0 PEEP Setting Blood Gas 26.0 Inspiratory Pressure Blood Gas DR. FLORENCE RAMIREZ Critical Value Read Back Blood Gas JUANCHO RT Notified Whom Blood Gas 01/28/2019 6:08:4 Notified Time 5 PM White Blood Count 23.0 #H Red Blood Count 4.57 L Hemoglobin 13.3 L Hematocrit 40.0 L Mean Corpuscular 87.5 Volume Mean Corpuscular 29.1 Hemoglobin Mean Corpuscular 33.3 Hemoglobin Concen t Red Cell 13.5 Distribution Width Platelet Count 394 # Mean Platelet 9.3 Volume Immature 1.000 H Granulocytes % Neutrophils % 83.9 H Lymphocytes % 9.5 L Monocytes % 4.5 Eosinophils % 0.9 Basophils % 0.2 Nucleated Red 0.0 Blood Cells % Immature 0.220 H Granulocytes # Neutrophils # 19.3 H Lymphocytes # 2.2 Monocytes # 1.0 H Eosinophils # 0.2 Basophils # 0.0 Nucleated Red 0.0 Blood Cells # Prothrombin Time 18.6 #H Prothrombin Time 1.5 Ratio INR International 1.54 Normalized Ratio Activated 39.6 H Partial Thrombopl ast Time Sodium Level 137 Potassium Level 4.8 Chloride Level 95 L Carbon Dioxide 22 Level Anion Gap 20 H Blood Urea 15 Nitrogen Creatinine 0.94 Est Glomerular Filtrat Rate mL/min Glucose Level 292 H Calcium Level 9.3 Total Bilirubin 0.4 Direct Bilirubin 0.00 Indirect 0.4 Bilirubin Aspartate Amino 35 Transf (AST/SGOT) Alanine 15 Aminotransferase (ALT/SGPT) Alkaline 62 Phosphatase Troponin I 0.534 *H Total Protein 8.4 H Albumin 4.2 Globulin 4.20 H Albumin/Globulin 1.00 Ratio POC Venous 5.0 *H Lactate Urine Color YELLOW Urine Clarity CLOUDY A Urine pH 5.0 Urine Specific 1.017 [place] Urine Ketones TRACE A Urine Nitrite NEGATIVE Urine Bilirubin NEGATIVE Urine NEGATIVE Urobilinogen Urine Leukocyte 3+ H Esterase Urine Microscopic 173 H RBC Urine Microscopic > 182 H WBC Urine Hemoglobin 2+ H Urine Glucose 3+ H Urine Total 3+ H Protein Test 01/28/19 21:13 01/28/19 21:29 01/28/19 23:38 01/29/19 02:33 Creatine Kinase 156 458 #H Creatine Kinase 2.1 1.3 Index Creatinine Kinase 3.21 H 5.75 H MB (Mass) Troponin I 1.190 *H 2.410 *H POC Venous 1.8 Lactate Lactic Acid Level 1.4 Test 01/29/19 04:57 01/29/19 08:00 01/29/19 09:16 01/29/19 13:46 White Blood Count 17.6 #H Red Blood Count 3.33 #L Hemoglobin 9.7 #L Hematocrit 28.6 #L Mean Corpuscular 85.9 Volume Mean Corpuscular 29.1 Hemoglobin Mean Corpuscular 33.9 Hemoglobin Concen t Red Cell 13.6 Distribution Width Platelet Count 300 # Mean Platelet 9.4 Volume Immature 1.100 H Granulocytes % Neutrophils % 72.3 Lymphocytes % 18.6 Monocytes % 7.4 Eosinophils % 0.3 Basophils % 0.3 Nucleated Red 0.0 Blood Cells % Immature 0.190 H Granulocytes # Neutrophils # 12.7 H Lymphocytes # 3.3 H Monocytes # 1.3 H Eosinophils # 0.1 Basophils # 0.1 Nucleated Red 0.0 Blood Cells # Sodium Level 140 Potassium Level 3.6 Chloride Level 106 # Carbon Dioxide 21 Level Anion Gap 13 # Blood Urea 13 Nitrogen Creatinine 0.83 Est Glomerular Filtrat Rate mL/min Glucose Level 232 H Hemoglobin A1c 6.9 H Lactic Acid Level 1.3 Calcium Level 8.3 L Magnesium Level 1.5 L Total Bilirubin 0.3 Direct Bilirubin 0.00 Indirect 0.3 Bilirubin Aspartate Amino 32 Transf (AST/SGOT) Alanine 25 Aminotransferase (ALT/SGPT) Alkaline 49 Phosphatase Total Protein 6.3 # Albumin 3.1 #L Globulin 3.20 Albumin/Globulin 0.96 Ratio Triglycerides 128 Level Cholesterol Level 142 LDL Cholesterol, 90 Calculated HDL Cholesterol 26 L Cholesterol/HDL 5.4 Ratio Thyroid 1.760 Stimulating Hormone (TSH) Creatine Kinase 452 H Creatine Kinase 1.2 Index Creatinine Kinase 5.21 H MB (Mass) Troponin I 1.840 *H Bedside Glucose 214 203 Medications Medication Current Medications Norepinephrine 250 ml @ 1.875 mls/ hr TITRATE IV Last administered on 01/11 07/01at 20:35; Admin Dose 1.875 MLS/HR; Start 01/28/19 at 20:30 Vancomycin HCl (Vanco Iv Per Pharmacy) VANCOMYCIN PER PHARMACY PER PROTOCOL XX ; Start 01/28/19 at 20:00 Aztreonam 50 ml @ 100 mls/hr Q12 IVPB Last administered on 01/29/19 08:57; Admin Dose 100 MLS/HR; Start 01/28/19 at 21:00 Albuterol (Ventolin Hfa) 4 puff Q2H RESP THERAPY PRN INH SHORTNESS OF BREATH; Start 01/28/19 at 20:00 Ipratropium [place] (Atrovent Hfa) 4 puff Q2H RESP THERAPY PRN INH SHORTNESS OF BREATH; Start 01/28/19 at 20:00 Acetaminophen (Tylenol Liquid) 650 mg Q6H PRN PO PAIN LEVEL 1-3 OR FEVER Last administered on 01/28/19 22:59; Admin Dose 650 MG; Start 01/28/19 at 20:00 Vancomycin HCl 250 ml @ 125 mls/hr Q12H IVPB Last administered on 01/29/19 05:10; Admin Dose 125 MLS/HR; Start 01/29/19 at 06:00 Enoxaparin Sodium (Lovenox) 70 mg Q12 SC Last administered on 01/29/19 09:33; Admin Dose 70 MG; Start 01/28/19 at 23:30 Lorazepam (Ativan) 2 mg Q2 PRN IM AGITATION; Start 01/29/19 at 00:00 Fentanyl 100 ml @ 2.5 mls/hr TITRATE PRN IV SEDATION Last administered on 01/29/19 03:03; Admin Dose 2.5 MLS/HR; Start 01/29/19 at 03:00 Sodium Chloride 1,000 ml @ 80 mls/hr [id number] IV Last administered on 01/29/19 04:02; Admin Dose 80 MLS/HR; Start 01/29/19 at 04:00 Digoxin (Digoxin) 0.25 mg DAILY@1300 PO ; Start 01/29/19 at 13:00 Dutasteride (Avodart) 0.5 mg QAM PO ; Start 01/29/19 at 09:00 Propranolol HCl (Inderal) 20 mg BID PO Last administered on 01/29/19 09:05; Admin Dose 20 MG; Start 01/29/19 at 09:00 Insulin Aspart (Novolog Insulin Pen) NOVOLOG *MILD* ALGORI... Q4 SC Last administered on 3/19/19at 13:59; Admin Dose 2 UNIT; Start 01/29/19 at 09:00 Miscellaneous Information 1 ea NOTE XX ; Start 01/29/19 at 07:00 Glucose (Glutose) 15 gm Q15M PRN PO DECREASED GLUCOSE; Start 01/29/19 at 07:00 Glucose (Glutose) 22.5 gm Q15M PRN PO DECREASED GLUCOSE; Start 01/29/19 at 07:00 Dextrose (D50w Syringe) 25 ml Q15M PRN IV DECREASED GLUCOSE; Start 01/29/19 at 07:00 Dextrose (D50w Syringe) 50 ml Q15M PRN IV DECREASED GLUCOSE; Start 01/29/19 at 07:00 Glucagon (Glucagen) 1 mg Q15M PRN IM DECREASED GLUCOSE; Start 01/29/19 at 07:00 Glucose (Glutose) 15 gm Q15M PRN BUCCAL DECREASED GLUCOSE; Start 01/29/19 at 07:00 Famotidine (Pepcid Iv) 20 mg BID IV ; Start 01/30/19 at 09:00 Miscellaneous Information (*Rx Drug Level Order Reminder*) VANCO TROUGH @ 1,700 ONCE ONCE XX ; Start 01/30/19 at 17:00; Stop 01/30/19 at 17:01 KAVITHA WRIGHT NP Jan 29, 2019 15:03
--- NOTE | 2019-01-29 16:12 | CONS ---
Assessment/Plan Assessment/Plan Hospital Course (Demo Recall) Septic shock, improving Respiratory failure status post extubation Elevated troponin, likely type II myocardial infarction Cardiomyopathy with left ventricular ejection fraction 45% echocardiogram October 2018 Paroxysmal atrial fibrillation, currently sinus rhythm Parkinson's Diabetes Anemia -Patient was admitted with septic shock on IV pressors and intubated. He is currently extubated and off IV pressors -Troponins elevated and are since trending down. ECG with no significant ST abnormalities. On review of labs, patient with hemoglobin trending down. Currently on Lovenox, would recommend to follow hemoglobin closely. We will continue aspirin and statin therapy, no beta-cedric given just weaned off IV pressors Consultation Date/Type/Reason Admit Date/Time Type of Consult Cardiology Reason for Consultation Elevated troponin Date/Time of Note DATE: 01/29/19 TIME: 16:04 Hx of Present Illness This is a 78-year-old male with past medical history of cardiomyopathy, paroxysmal atrial fibrillation, hypertension who was transferred [facility] secondary to worsening respiratory status. Appears patient vomited and became hypoxic and was intubated. Patient initially with presumed septic shock with hypotension requiring IV pressors. Patient has since been weaned off IV pressors and extubated. He is currently in restraints. 12 point review of systems unable to be performed at the current time given patient's mental status Past Medical History Her myopathy Paroxysmal atrial fibrillation Hypertension Parkinson's Medical History: diabetes Home Meds Reported Medications Insulin Degludec (Tresiba Flextouch U-200) 200 Unit/1 Ml Insuln.pen, 0 SQ DAILY 18-20 UNITS 01/28/19 Linagliptin-Metformin (Jentadueto) 2.5-1,000 Mg Tablet, 1 TAB PO BID, TAB 01/28/19 Digoxin* (Digitek*) 250 Mcg Tablet, 0.25 MG PO DAILY, TAB 01/28/19 Propranolol Hcl* (Propranolol Hcl*) 20 Mg Tablet, 20 MG PO BID, TAB 01/28/19 Glimepiride* (Glimepiride*) 4 Mg Tablet, 4 MG PO WITH BREAKFAST DINNE, TAB 01/28/19 Losartan-Hydrochlorothiazide (Losartan-HCTZ) 50-12.5 Mg Tab, 1 TAB PO DAILY, TAB 01/28/19 Tamsulosin Hcl* (Tamsulosin Hcl*) 0.4 Mg Cap.er.24h, 0.4 MG PO HS, CAP 3/18/19 Entacapone* (Entacapone*) 200 Mg Tablet, 200 MG PO TID, TAB 01/28/19 Pramipexole* (Pramipexole*) 0.125 Mg Tablet, 0.125 MG PO DAILY, TAB 01/28/19 Dutasteride* (Avodart*) 0.5 Mg Capsule, 0.5 MG PO QAM, CAP 01/28/19 Rivaroxaban* (Xarelto*) 20 Mg Tablet, 20 MG PO WITH DINNER, TAB 01/28/19 Discontinued Reported Medications Insulin Degludec (Tresiba Flextouch U-100) 100 Unit/1 Ml Insuln.pen, 18-20 UNIT SQ DAILY 08/10/18 Glimepiride* (Glimepiride*) 4 Mg Tablet, 4 MG PO WITH BREAKFAST DINNE, TAB 08/10/18 Dutasteride* (Avodart*) 0.5 Mg Capsule, 0.5 MG PO DAILY, CAP 08/10/18 Linagliptin/Metformin HCl (Jentadueto Xr 2.5 mg-1,000 mg) 1 Each Tab.bp.24h, 1 EACH PO BID, TAB 08/10/18 Tamsulosin Hcl* (Tamsulosin Hcl*) 0.4 Mg Cap.er.24h, 0.4 MG PO HS, CAP 08/10/18 Pramipexole* (Pramipexole*) 0.125 Mg Tablet, 0.125 MG PO HS, TAB 08/10/18 Entacapone* (Entacapone*) 200 Mg Tablet, 200 MG PO TID, TAB 08/10/18 Discontinued Scripts Levofloxacin* (Levofloxacin*) 750 Mg Tablet, 750 MG PO DAILY for 8 Days, #8 TAB To complete 2 weeks therapy. 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 10/22/18 Medications Current Medications Norepinephrine 250 ml @ 1.875 mls/ hr TITRATE IV Last administered on 01/28/19 20:35; Admin Dose 1.875 MLS/HR; Start 01/28/19 at 20:30 Vancomycin HCl (Vanco Iv Per Pharmacy) VANCOMYCIN PER PHARMACY PER PROTOCOL XX ; Start 01/28/19 at 20:00 Aztreonam 50 ml @ 100 mls/hr Q12 IVPB Last administered on 01/29/19 08:57; Admin Dose 100 MLS/HR; Start 01/28/19 at 21:00 Albuterol (Ventolin Hfa) 4 puff Q2H RESP THERAPY PRN INH SHORTNESS OF BREATH; Start 01/28/19 at 20:00 Ipratropium [place] (Atrovent Hfa) 4 puff Q2H RESP THERAPY PRN INH SHORTNESS OF BREATH; Start 01/28/19 at 20:00 Acetaminophen (Tylenol Liquid) 650 mg Q6H PRN PO PAIN LEVEL 1-3 OR FEVER Last administered on 01/28/19 22:59; Admin Dose 650 MG; Start 01/28/19 at 20:00 Vancomycin HCl 250 ml @ 125 mls/hr Q12H IVPB Last administered on 01/29/19 05:10; Admin Dose 125 MLS/HR; Start 01/29/19 at 06:00 Enoxaparin Sodium (Lovenox) 70 mg Q12 SC Last administered on 01/29/19 09:33; Admin Dose 70 MG; Start 01/28/19 at 23:30 Lorazepam (Ativan) 2 mg Q2 PRN IM AGITATION; Start 01/29/19 at 00:00 Fentanyl 100 ml @ 2.5 mls/hr TITRATE PRN IV SEDATION Last administered on 01/29/19 03:03; Admin Dose 2.5 MLS/HR; Start 01/29/19 at 03:00 Sodium Chloride 1,000 ml @ 80 mls/hr [id number] IV Last administered on 01/29/19 04:02; Admin Dose 80 MLS/HR; Start 01/29/19 at 04:00 Digoxin (Digoxin) 0.25 mg DAILY@1300 PO ; Start 01/29/19 at 13:00 Dutasteride (Avodart) 0.5 mg QAM PO ; Start 01/29/19 at 09:00 Propranolol HCl (Inderal) 20 mg BID PO Last administered on 01/29/19at 09:05; Admin Dose 20 MG; Start 01/29/19 at 09:00 Insulin Aspart (Novolog Insulin Pen) NOVOLOG *MILD* ALGORI... Q4 SC Last administered on 01/29/19at 13:59; Admin Dose 2 UNIT; Start 01/29/19 at 09:00 Miscellaneous Information 1 ea NOTE XX ; Start 01/29/19 at 07:00 Glucose (Glutose) 15 gm Q15M PRN PO DECREASED GLUCOSE; Start 01/29/19 at 07:00 Glucose (Glutose) 22.5 gm Q15M PRN PO DECREASED GLUCOSE; Start 01/29/19 at 07:00 Dextrose (D50w Syringe) 25 ml Q15M PRN IV DECREASED GLUCOSE; Start 01/29/19 at 07:00 Dextrose (D50w Syringe) 50 ml Q15M PRN IV DECREASED GLUCOSE; Start 01/29/19 at 07:00 Glucagon (Glucagen) 1 mg Q15M PRN IM DECREASED GLUCOSE; Start 01/29/19 at 07:00 Glucose (Glutose) 15 gm Q15M PRN BUCCAL DECREASED GLUCOSE; Start 01/29/19 at 07:00 Famotidine (Pepcid Iv) 20 mg BID IV ; Start 01/30/19 at 09:00 Miscellaneous Information (*Rx Drug Level Order Reminder*) VANCO TROUGH @ 1,700 ONCE ONCE XX ; Start 01/30/19 at 17:00; Stop 01/30/19 at 17:01 Allergies: Coded Allergies: No Known Allergy (Unverified , 01/28/19) Past Surgical History Past Surgical Hx: other Family History Significant Family History: no pertinent family hx Social History Smoking Status: Unknown if ever smoked Exam/Review of Systems Vital Signs Vitals Vital Signs Date Temp Pulse Resp B/P (MAP) Pulse Ox O2 O2 Flow FiO2 Time Delivery Rate 01/29/19 121/53 14:30 (75) 01/29/19 Nasal 2.0 14:00 Cannula 01/29/19 65 16 99 13:30 01/29/19 98.3 12:00 01/29/19 30 08:29 Intake and Output 01/28/19 01/28/19 01/29/19 1515:00 23:00 07:00 IntakeIntake Total 35.725 ml 1255.325 ml OutputOutput Total 212 ml 936 ml BalanceBalance -176.275 ml 319.325 ml Exam Exam Awake, does follow some basic commands, in restraints, no apparent distress Head: normocephalic Respiratory: other (Coarse breath sounds bilaterally, no wheezing) Cardiovascular: regular rate and rhythm (S1-S2 heard) Gastrointestinal: soft, non-tender, bowel sounds Extremities: edema (Trace) Labs Result Diagram: 01/29/19 0457 01/29/19 0457 Results 24hrs Laboratory Tests Test 01/28/19 17:35 01/28/19 17:45 01/28/19 17:51 01/28/19 18:25 Blood Gas Blood arterial Specimen Source Arterial Blood 01/28/2019 5:50:4 Date Drawn 0 PM Arterial Blood pH 7.378 (Temp corrected) Arterial Blood 33.2 L pCO2 (Temp correct) Arterial Blood 262.8 H pO2 (Temp corrected) Arterial Blood 19.1 L HCO3 Arterial Blood -5.1 L Base Excess Arterial Blood 99.2 Oxygen Saturation Eliezer Test ACCEPTAB Arterial Blood Right Radial Gas Puncture Site Arterial 0.3 Blood Carboxyhemo globin Arterial Blood 0.5 Methemoglobin Blood Gas A-a O2 417.0 H Differential Oxyhemoglobin 98.4 Percent Blood Gas 37.0 Temperature Blood Gas 20.0 Respiration Rate Blood Gas Actual 20 Respiration Rate Blood Gas VENT - AC Modality FiO2 100.0 Blood Gas Tidal 600.0 Volume Blood Gas Low 0 PEEP Setting Blood Gas 26.0 Insp[address] Pressure Blood Gas DR. ROYCE RAMIREZ Critical Value Read Back Blood Gas JUANCHO RT Notified Whom Blood Gas 01/28/2019 6:08:4 Notified Time 5 PM White Blood Count 23.0 #H Red Blood Count 4.57 L Hemoglobin 13.3 L Hematocrit 40.0 L Mean Corpuscular 87.5 Volume Mean Corpuscular 29.1 Hemoglobin Mean Corpuscular 33.3 Hemoglobin Concen t Red Cell 13.5 Distribution Width Platelet Count 394 # Mean Platelet 9.3 Volume Immature 1.000 H Granulocytes % Neutrophils % 83.9 H Lymphocytes % 9.5 L Monocytes % 4.5 Eosinophils % 0.9 Basophils % 0.2 Nucleated Red 0.0 Blood Cells % Immature 0.220 H Granulocytes # Neutrophils # 19.3 H Lymphocytes # 2.2 Monocytes # 1.0 H Eosinophils # 0.2 Basophils # 0.0 Nucleated Red 0.0 Blood Cells # Prothrombin Time 18.6 #H Prothrombin Time 1.5 Ratio INR International 1.54 Normalized Ratio Activated 39.6 H Partial Thrombopl ast Time Sodium Level 137 Potassium Level 4.8 Chloride Level 95 L Carbon Dioxide 22 Level Anion Gap 20 H Blood Urea 15 Nitrogen Creatinine 0.94 Est Glomerular Filtrat Rate mL/min Glucose Level 292 H Calcium Level 9.3 Total Bilirubin 0.4 Direct Bilirubin 0.00 Indirect 0.4 Bilirubin Aspartate Amino 35 Transf (AST/SGOT) Alanine 15 Aminotransferase (ALT/SGPT) Alkaline 62 Phosphatase Troponin I 0.534 *H Total Protein 8.4 H Albumin 4.2 Globulin 4.20 H Albumin/Globulin 1.00 Ratio POC Venous 5.0 *H Lactate Urine Color YELLOW Urine Clarity CLOUDY A Urine pH 5.0 Urine Specific 1.017 Spring Urine Ketones TRACE A Urine Nitrite NEGATIVE Urine Bilirubin NEGATIVE Urine NEGATIVE Urobilinogen Urine Leukocyte 3+ H Esterase Urine Microscopic 173 H RBC Urine Microscopic > 182 H WBC Urine Hemoglobin 2+ H Urine Glucose 3+ H Urine Total 3+ H Protein Test 01/28/19 21:13 01/28/19 21:29 01/28/19 23:38 01/29/19 02:33 Creatine Kinase 156 458 #H Creatine Kinase 2.1 1.3 Index Creatinine Kinase 3.21 H 5.75 H MB (Mass) Troponin I 1.190 *H 2.410 *H POC Venous 1.8 Lactate Lactic Acid Level 1.4 Test 01/29/19 04:57 01/29/19 08:00 01/29/19 09:16 01/29/19 13:46 White Blood Count 17.6 #H Red Blood Count 3.33 #L Hemoglobin 9.7 #L Hematocrit 28.6 #L Mean Corpuscular 85.9 Volume Mean Corpuscular 29.1 Hemoglobin Mean Corpuscular 33.9 Hemoglobin Concen t Red Cell 13.6 Distribution Width Platelet Count 300 # Mean Platelet 9.4 Volume Immature 1.100 H Granulocytes % Neutrophils % 72.3 Lymphocytes % 18.6 Monocytes % 7.4 Eosinophils % 0.3 Basophils % 0.3 Nucleated Red 0.0 Blood Cells % Immature 0.190 H Granulocytes # Neutrophils # 12.7 H Lymphocytes # 3.3 H Monocytes # 1.3 H Eosinophils # 0.1 Basophils # 0.1 Nucleated Red 0.0 Blood Cells # Sodium Level 140 Potassium Level 3.6 Chloride Level 106 # Carbon Dioxide 21 Level Anion Gap 13 # Blood Urea 13 Nitrogen Creatinine 0.83 Est Glomerular Filtrat Rate mL/min Glucose Level 232 H Hemoglobin A1c 6.9 H Lactic Acid Level 1.3 Calcium Level 8.3 L Magnesium Level 1.5 L Total Bilirubin 0.3 Direct Bilirubin 0.00 Indirect 0.3 Bilirubin Aspartate Amino 32 Transf (AST/SGOT) Alanine 25 Aminotransferase (ALT/SGPT) Alkaline 49 Phosphatase Total Protein 6.3 # Albumin 3.1 #L Globulin 3.20 Albumin/Globulin 0.96 Ratio Triglycerides 128 Level Cholesterol Level 142 LDL Cholesterol, 90 Calculated HDL Cholesterol 26 L Cholesterol/HDL 5.4 Ratio Thyroid 1.760 Stimulating Hormone (TSH) Creatine Kinase 452 H Creatine Kinase 1.2 Index Creatinine Kinase 5.21 H MB (Mass) Troponin I 1.840 *H Bedside Glucose 214 203 Imaging Imaging ECG sinus tachycardia with first-degree AV block, septal and inferior Q waves, nonspecific ST abnormalities Medications Medications Current Medications Norepinephrine 250 ml @ 1.875 mls/ hr TITRATE IV Last administered on 01/28/19at 20:35; Admin Dose 1.875 MLS/HR; Start 01/28/19 at 20:30 Vancomycin HCl (Vanco Iv Per Pharmacy) VANCOMYCIN PER PHARMACY PER PROTOCOL XX ; Start 01/28/19 at 20:00 Aztreonam 50 ml @ 100 mls/hr Q12 IVPB Last administered on 01/29/19at 08:57; Admin Dose 100 MLS/HR; Start 01/28/19 at 21:00 Albuterol (Ventolin Hfa) 4 puff Q2H RESP THERAPY PRN INH SHORTNESS OF BREATH; Start 01/28/19 at 20:00 Ipratropium [place] (Atrovent Hfa) 4 puff Q2H RESP THERAPY PRN INH SHORTNESS OF BREATH; Start 01/28/19 at 20:00 Acetaminophen (Tylenol Liquid) 650 mg Q6H PRN PO PAIN LEVEL 1-3 OR FEVER Last administered on 01/28/19at 22:59; Admin Dose 650 MG; Start 01/28/19 at 20:00 Vancomycin HCl 250 ml @ 125 mls/hr Q12H IVPB Last administered on 01/29/19 05:10; Admin Dose 125 MLS/HR; Start 01/29/19 at 06:00 Enoxaparin Sodium (Lovenox) 70 mg Q12 SC Last administered on 01/29/19 09:33; Admin Dose 70 MG; Start 01/28/19 at 23:30 Lorazepam (Ativan) 2 mg Q2 PRN IM AGITATION; Start 01/29/19 at 00:00 Fentanyl 100 ml @ 2.5 mls/hr TITRATE PRN IV SEDATION Last administered on 01/29/19 03:03; Admin Dose 2.5 MLS/HR; Start 01/29/19 at 03:00 Sodium Chloride 1,000 ml @ 80 mls/hr [id number] IV Last administered on 01/29/19 04:02; Admin Dose 80 MLS/HR; Start 01/29/19 at 04:00 Digoxin (Digoxin) 0.25 mg DAILY@1300 PO ; Start 01/29/19 at 13:00 Dutasteride (Avodart) 0.5 mg QAM PO ; Start 01/29/19 at 09:00 Propranolol HCl (Inderal) 20 mg BID PO Last administered on 01/29/19 09:05; Admin Dose 20 MG; Start 01/29/19 at 09:00 Insulin Aspart (Novolog Insulin Pen) NOVOLOG *MILD* ALGORI... Q4 SC Last administered on 01/29/19at 13:59; Admin Dose 2 UNIT; Start 01/29/19 at 09:00 Miscellaneous Information 1 ea NOTE XX ; Start 01/29/19 at 07:00 Glucose (Glutose) 15 gm Q15M PRN PO DECREASED GLUCOSE; Start 01/29/19 at 07:00 Glucose (Glutose) 22.5 gm Q15M PRN PO DECREASED GLUCOSE; Start 01/29/19 at 07:00 Dextrose (D50w Syringe) 25 ml Q15M PRN IV DECREASED GLUCOSE; Start 01/29/19 at 07:00 Dextrose (D50w Syringe) 50 ml Q15M PRN IV DECREASED GLUCOSE; Start 01/29/19 at 07:00 Glucagon (Glucagen) 1 mg Q15M PRN IM DECREASED GLUCOSE; Start 01/29/19 at 07:00 Glucose (Glutose) 15 gm Q15M PRN BUCCAL DECREASED GLUCOSE; Start 01/29/19 at 07:00 Famotidine (Pepcid Iv) 20 mg BID IV ; Start 01/30/19 at 09:00 Miscellaneous Information (*Rx Drug Level Order Reminder*) VANCO TROUGH @ 1,700 ONCE ONCE XX ; Start 01/30/19 at 17:00; Stop 01/30/19 at 17:01 Royce Rodriguez DO Jan 29, 2019 16:12
[2019-01-29] MEDS ORDERED: ASPIRIN 81 MG TAB PO SCH (17:00)
[2019-01-29] MEDS ORDERED: ASPIRIN 300 MG SUPP PR SCH (19:00)
[2019-01-29] MEDS: ATORVASTATIN 40 MG TAB PO SCH (21:00)
[2019-01-29] MEDS: ASPIRIN 300 MG SUPP PR SCH (21:05)
[2019-01-30] VITALS (27 sets, daily range): BP systolic 106–155; BP diastolic 45–79; PULSE 63–87; RESP 11–25
[2019-01-30] MEDS: INSULIN ASPART [NOVOLOG] 3 ML PEN SC SCH ×6 (01:00→20:20)
--- NOTE | 2019-01-30 02:26 | CONS ---
DATE OF ADMISSION: 01/28/2019 DATE OF CONSULTATION: REFERRING PHYSICIAN: Yahir Cruz MD HISTORY OF PRESENT ILLNESS: The patient is a 78-year-old [place] Estonian-speaking male who was adm itted from a [facility] with a Esposito catheter with a 2-day history of shortness of breath wi th cough. When the patient arrived, he was noted to be in acute respiratory failure and was intubate d and placed on the respirator. His Esposito catheter was changed. His white blood cell count initiall y was 17,600. His urinalysis was yellow, cloudy, specific gravity 1.017, +3 leukocyte esterase, 173 RBCs, and 187 WBCs. A chest x-ray revealed patchy right lower lobe and right hilar infiltrates. The re was also noted to be an NG tube and endotracheal tube in place, and a right CVP also in place. Th e patient had elevated troponins supporting the diagnosis of a non-ST segment myocardial infarction. He was placed on Azactam, vancomycin, and Levaquin. The patient apparently did quite well and was e xtubated on 01/29/2019 and has become more alert. He is able to follow simple commands such as take a deep breath. PHYSICAL EXAMINATION GENERAL: Reveals an alert, but nonverbal, bald [place] male lying in bed. HEENT: Pupils are constricted, round, and react to light. Extraocular movements are full. There is no scleral icterus. NECK: There is no jugular venous distention. CHEST: Clear. HEART: Regular. No gallop or murmur. ABDOMEN: Soft. There are no palpable organs or masses. EXTREMITIES: Reveal trace pedal edema and hypersensitivity on the plantar surface of the left foot. He has sacral and perianal redness. The patient can move all 4 extremities. IMPRESSION: 1. Systemic inflammatory response. 2. Healthcare-associated pneumonia. 3. Acute respiratory failure. 4. Urinary tract infection with Esposito catheter present on admission. 5. Non-ST segment myocardial infarction, acute. 6. Diabetes mellitus 7. Benign prostatic hypertrophy with obstruction. 8. Parkinson's disease. RECOMMENDATIONS: I suggest that we continue the present treatment, which is that of Azactam and vanc omycin, pending cultures of the blood, sputum and urine. Thank you for referring this interesting patient. I have seen this patient for Dr. Keo Lopez. Dictated By: Maite QUILES MD for KEO LOPEZ MD EC/NTS Conf#: [id number] DID#: [id number] CC: YAHIR CRUZ MD;*EndCC*
[2019-01-30] MEDS: VANCOMYCIN 1 GM 250 ML IVPB SCH ×2 (05:53→18:22)
[2019-01-30] MEDS: DUTASTERIDE 0.5 MG CAP PO SCH (09:00)
[2019-01-30] MEDS ORDERED: FAMOTIDINE 20 MG INJ IV SCH (09:00)
[2019-01-30] MEDS: AZTREONAM 1 GM/NS (PMX) 50 ML IVPB SCH ×2 (09:17→20:22)
[2019-01-30] MEDS: ENOXAPARIN 80 MG/0.8 ML SYG SC SCH ×2 (09:19→20:35)
[2019-01-30] MEDS: BALSAM PERU/CASTOR OIL 60 GM TUBE TOP SCH ×2 (09:22→20:24)
[2019-01-30] MEDS ORDERED: POTASSIUM CHLORIDE 20 MEQ POWDER FOR ORAL SOLN PO ONE (09:30)
[2019-01-30] MEDS: ASPIRIN 300 MG SUPP PR SCH (09:31)
--- NOTE | 2019-01-30 13:11 | CONS ---
Assessment/Plan Assessment/Plan Hospital Course (Demo Recall) Patient is awake lethargic but arousable he is in no distress no fevers overnight. WBC 12.6 platelets 250 neutrophils 70.9 BUN 8 creatinine 0.69 Microbiology: Blood cultures remain negative urine culture grew Berenice albicans less than 10,000 colonies sputum culture pending Allergies none Antimicrobials patient remains on IV vancomycin and aztreonam Physical examination: This is a fragile chronically ill-appearing elderly man who is laying comfortably in bed. Head atraumatic normocephalic, sclera nonicteric. Neck is supple, chest rise symmetrical, breath sounds diminished at bases. Heart: S1-S2. Abdomen soft, bowel sounds present. Extremities with trace edema. Assessment: Severe sepsis Acute respiratory failure, status post extubated yesterday Pneumonia Urinary tract infection Acute possibly on chronic encephalopathy NSTEMI Atrial fibrillation Parkinson's dementia BPH with chronic Esposito catheter Plan: Improving, will give a dose of fluconazole, continue present care and antibiotics, continue aspiration precautions, follow chest x-ray, plan to transfer out of ICU Consultation Date/Type/Reason Admit Date/Time Jan 28, 2019 at 19:41 Initial Consult Date 01/29/19 Type of Consult id Date/Time of Note DATE: 01/30/19 TIME: 13:09 Exam/Review of Systems Exam Vitals Vital Signs Date Temp Pulse Resp B/P (MAP) Pulse Ox O2 O2 Flow FiO2 Time Delivery Rate 01/30/19 70 18 123/57 97 Room Air 09:00 (79) 01/30/19 2.0 08:00 01/30/19 98.7 08:00 01/29/19 30 08:29 Intake and Output 01/29/19 01/29/19 01/30/19 1515:00 23:00 07:00 IntakeIntake Total 106 ml 700 ml 1080 ml OutputOutput Total 555 ml 405 ml 380 ml BalanceBalance -449 ml 295 ml 700 ml Results Result Diagram: 01/30/19 0355 01/30/19 0355 Results 24hrs Laboratory Tests Test 01/29/19 13:46 01/29/19 18:16 01/29/19 21:01 01/30/19 01:40 Bedside Glucose 203 148 129 109 Test 01/30/19 03:55 01/30/19 05:55 01/30/19 08:49 01/30/19 12:33 White Blood Count 12.6 #H Red Blood Count 3.12 L Hemoglobin 9.0 L Hematocrit 27.7 L Mean Corpuscular 88.8 Volume Mean Corpuscular 28.8 L Hemoglobin Mean Corpuscular 32.5 Hemoglobin Concent Red Cell 13.8 Distribution Width Platelet Count 250 Mean Platelet Volume 9.1 Immature 0.900 H Granulocytes % Neutrophils % 70.9 Lymphocytes % 16.9 Monocytes % 8.3 Eosinophils % 2.8 Basophils % 0.2 Nucleated Red Blood 0.0 Cells % Immature 0.110 H Granulocytes # Neutrophils # 9.0 H Lymphocytes # 2.1 Monocytes # 1.1 H Eosinophils # 0.4 Basophils # 0.0 Nucleated Red Blood 0.0 Cells # Sodium Level 142 Potassium Level 3.4 L Chloride Level 108 Carbon Dioxide Level 25 Anion Gap 9 Blood Urea Nitrogen 8 Creatinine 0.69 Est Glomerular Filtrat Rate mL/min Glucose Level 98 # Calcium Level 8.2 L Total Bilirubin 0.3 Direct Bilirubin 0.00 Indirect Bilirubin 0.3 Aspartate Amino 23 Transf (AST/SGOT) Alanine 20 Aminotransferase (AL T/SGPT) Alkaline Phosphatase 48 Total Protein 6.3 Albumin 3.1 L Globulin 3.20 Albumin/Globulin 0.96 Ratio Bedside Glucose 106 111 194 Medications Medication Current Medications Vancomycin HCl (Vanco Iv Per Pharmacy) VANCOMYCIN PER PHARMACY PER PROTOCOL XX ; Start 01/28/19 at 20:00 Aztreonam 50 ml @ 100 mls/hr Q12 IVPB Last administered on 01/30/19at 09:17; Admin Dose 100 MLS/HR; Start 01/28/19 at 21:00 Albuterol (Ventolin Hfa) 4 puff Q2H RESP THERAPY PRN INH SHORTNESS OF BREATH; Start 01/28/19 at 20:00 Ipratropium [place] (Atrovent Hfa) 4 puff Q2H RESP THERAPY PRN INH SHORTNESS OF BREATH; Start 01/28/19 at 20:00 Acetaminophen (Tylenol Liquid) 650 mg Q6H PRN PO PAIN LEVEL 1-3 OR FEVER Last administered on 01/28/19at 22:59; Admin Dose 650 MG; Start 01/28/19 at 20:00 Vancomycin HCl 250 ml @ 125 mls/hr Q12H IVPB Last administered on 01/30/19at 05:53; Admin Dose 125 MLS/HR; Start 01/29/19 at 06:00 Enoxaparin Sodium (Lovenox) 70 mg Q12 SC Last administered on 01/30/19at 09:19; Admin Dose 70 MG; Start 01/28/19 at 23:30 Sodium Chloride 1,000 ml @ 80 mls/hr [id number] IV Last administered on 01/29/19at 23:59; Admin Dose 80 MLS/HR; Start 01/29/19 at 04:00 Dutasteride (Avodart) 0.5 mg QAM PO ; Start 01/29/19 at 09:00 Insulin Aspart (Novolog Insulin Pen) NOVOLOG *MILD* ALGORI... Q4 SC Last administered on 01/30/19at 12:36; Admin Dose 2 UNIT; Start 01/29/19 at 09:00 Miscellaneous Information 1 ea NOTE XX ; Start 01/29/19 at 07:00 Glucose (Glutose) 15 gm Q15M PRN PO DECREASED GLUCOSE; Start 01/29/19 at 07:00 Glucose (Glutose) 22.5 gm Q15M PRN PO DECREASED GLUCOSE; Start 01/29/19 at 07:00 Dextrose (D50w Syringe) 25 ml Q15M PRN IV DECREASED GLUCOSE; Start 01/29/19 at 07:00 Dextrose (D50w Syringe) 50 ml Q15M PRN IV DECREASED GLUCOSE; Start 01/29/19 at 07:00 Glucagon (Glucagen) 1 mg Q15M PRN IM DECREASED GLUCOSE; Start 01/29/19 at 07:00 Glucose (Glutose) 15 gm Q15M PRN BUCCAL DECREASED GLUCOSE; Start 01/29/19 at 07:00 Famotidine (Pepcid Iv) 20 mg BID IV Last administered on 01/30/19at 09:17; Admin Dose 20 MG; Start 01/30/19 at 09:00 Miscellaneous Information (*Rx Drug Level Order Reminder*) VANCO TROUGH @ 1,700 ONCE ONCE XX ; Start 01/30/19 at 17:00; Stop 01/30/19 at 17:01 Atorvastatin Calcium (Lipitor) 40 mg HS PO ; Start 01/29/19 at 21:00 Aspirin (Aspirin) 300 mg DAILY NE Last administered on 01/30/19at 09:31; Admin Dose 300 MG; Start 3/19/19 at 18:56 KAVITHA WRIGHT NP Jan 30, 2019 13:11
[2019-01-30] MEDS ORDERED: FLUCONAZOLE 100 MG TAB PO ONE (13:30)
--- NOTE | 2019-01-30 14:13 | PN ---
Date/Time of Note Date/Time of Note DATE: 01/30/19 TIME: 14:10 Assessment/Plan VTE Prophylaxis Risk score (from Ns)>0 risk: 9 SCD applied (from Ns): Yes Pharmacological prophylaxis: LMWH Lines/Catheters IV Catheter Type (from Nrsg): Central Line Central line still needed: Yes Urinary Cath still in place: Yes Reason Cath still needed: urinary retention Assessment/Plan Assessment/Plan 78 yo man with history of Parkinson's disease, paroxysmal atrial fibrillation, and benign prostatic hypertrophy presenting with acute respiratory failure #septic shock: Secondary to catheter related UTI, pneumonia. Previous blood cultures and urine cultures show Citrobacter. Will treat with vancomycin and aztreonam at the current time, will avoid fluoroquinolones given prolonged QT. Await culture results. Given history of multidrug resistance will consult ID. Continue vasopressor support and and gentle IV fluid hydration given signs of pulmonary congestion. will consult ID, Dr. Farr. #nstemi: Type I versus type II. Given patient's underlying septic shock this likely could could be type II. Will trend cardiac enzymes, will check an echocardiogram. Previous echocardiogram from October 2018 did show an ejection fraction of approximately 45%. Will consult cardiology Dr. Rodriguez # suspect healthcare associated pneumonia: Vanco and aztreonam at the current time, await culture results, respiratory culture through ET tube, extubation per pulmonary # catheter related UTI: Vanco and aztreonam at the current time # Parkinson's disease: Resume home medications when indicated # Atrial fibrillation: Continue lovenox inpatient, discharge back on xarelto # BPH: Esposito catheter in place # DVT GI prophylaxis: Lovenox, Protonix Further treatment strategy will be implemented as per the clinical course Greater than 45 minutes of critical care time was spent on the care and management of this patient. Result Diagram: 01/30/19 0355 01/30/19 0355 Subjective 24 Hr Interval Summary Free Text/Dictation Extubated yesterday. Spoke to patient with Edwige HAIRSTON translating in [place]. He has poor memory of events preceding hospitalization. Could not offer much useful history. Exam/Review of Systems Exam Vitals Vital Signs Date Temp Pulse Resp B/P (MAP) Pulse Ox O2 O2 Flow FiO2 Time Delivery Rate 01/30/19 77 12:00 01/30/19 18 123/57 97 Room Air 09:00 (79) 01/30/19 2.0 08:00 01/30/19 98.7 08:00 01/29/19 30 08:29 Intake and Output 01/29/19 01/29/19 01/30/19 1515:00 23:00 07:00 IntakeIntake Total 106 ml 700 ml 1080 ml OutputOutput Total 555 ml 405 ml 380 ml BalanceBalance -449 ml 295 ml 700 ml Exam General: Elderly man sitting up in bed breathing comfortably on nasal cannula HEENT: Atraumatic, normocephalic. The pupils are equal, round and reactive. Neck: Supple with full range of motion. No rigidity or meningismus, right IJ central line Chest: Nontender Lungs: Coarse breath sounds bilaterally Heart: Normal S1-S2, Regular rhythm and rate. Abdomen: Soft , nontender, nondistended , bowel sounds are present. No guarding no rebound tenderness , No masses or organomegaly. No costovertebral temporal angle mass Extremities: Normal to inspection, no edema no cyanosis Neurologic: Awake and alert Results Results 24hrs Laboratory Tests Test 01/29/19 18:16 01/29/19 21:01 01/30/19 01:40 01/30/19 03:55 Bedside Glucose 148 129 109 White Blood Count 12.6 #H Red Blood Count 3.12 L Hemoglobin 9.0 L Hematocrit 27.7 L Mean Corpuscular 88.8 Volume Mean Corpuscular 28.8 L Hemoglobin Mean Corpuscular 32.5 Hemoglobin Concent Red Cell 13.8 Distribution Width Platelet Count 250 Mean Platelet Volume 9.1 Immature 0.900 H Granulocytes % Neutrophils % 70.9 Lymphocytes % 16.9 Monocytes % 8.3 Eosinophils % 2.8 Basophils % 0.2 Nucleated Red Blood 0.0 Cells % Immature 0.110 H Granulocytes # Neutrophils # 9.0 H Lymphocytes # 2.1 Monocytes # 1.1 H Eosinophils # 0.4 Basophils # 0.0 Nucleated Red Blood 0.0 Cells # Sodium Level 142 Potassium Level 3.4 L Chloride Level 108 Carbon Dioxide Level 25 Anion Gap 9 Blood Urea Nitrogen 8 Creatinine 0.69 Est Glomerular Filtrat Rate mL/min Glucose Level 98 # Calcium Level 8.2 L Total Bilirubin 0.3 Direct Bilirubin 0.00 Indirect Bilirubin 0.3 Aspartate Amino 23 Transf (AST/SGOT) Alanine 20 Aminotransferase (AL T/SGPT) Alkaline Phosphatase 48 Total Protein 6.3 Albumin 3.1 L Globulin 3.20 Albumin/Globulin 0.96 Ratio Test 01/30/19 05:55 01/30/19 08:49 01/30/19 12:33 Bedside Glucose 106 111 194 Medications Medication Current Medications Vancomycin HCl (Vanco Iv Per Pharmacy) VANCOMYCIN PER PHARMACY PER PROTOCOL XX ; Start 01/28/19 at 20:00 Aztreonam 50 ml @ 100 mls/hr Q12 IVPB Last administered on 01/30/19at 09:17; Ad min Dose 100 MLS/HR; Start 01/28/19 at 21:00 Albuterol (Ventolin Hfa) 4 puff Q2H RESP THERAPY PRN INH SHORTNESS OF BREATH; Start 01/28/19 at 20:00 Ipratropium [place] (Atrovent Hfa) 4 puff Q2H RESP THERAPY PRN INH SHORTNESS OF BREATH; Start 01/28/19 at 20:00 Acetaminophen (Tylenol Liquid) 650 mg Q6H PRN PO PAIN LEVEL 1-3 OR FEVER Last administered on 01/28/19at 22:59; Admin Dose 650 MG; Start 01/28/19 at 20:00 Vancomycin HCl 250 ml @ 125 mls/hr Q12H IVPB Last administered on 01/30/19 05:53; Admin Dose 125 MLS/HR; Start 01/29/19 at 06:00 Enoxaparin Sodium (Lovenox) 70 mg Q12 SC Last administered on 01/30/19at 09:19; Admin Dose 70 MG; Start 01/28/19 at 23:30 Sodium Chloride 1,000 ml @ 80 mls/hr [id number] IV Last administered on 01/29/19at 23:59; Admin Dose 80 MLS/HR; Start 01/29/19 at 04:00 Dutasteride (Avodart) 0.5 mg QAM PO ; Start 01/29/19 at 09:00 Insulin Aspart (Novolog Insulin Pen) NOVOLOG *MILD* ALGORI... Q4 SC Last administered on 01/30/19at 12:36; Admin Dose 2 UNIT; Start 01/29/19 at 09:00 Miscellaneous Information 1 ea NOTE XX ; Start 01/29/19 at 07:00 Glucose (Glutose) 15 gm Q15M PRN PO DECREASED GLUCOSE; Start 01/29/19 at 07:00 Glucose (Glutose) 22.5 gm Q15M PRN PO DECREASED GLUCOSE; Start 01/29/19 at 07:00 Dextrose (D50w Syringe) 25 ml Q15M PRN IV DECREASED GLUCOSE; Start 01/29/19 at 07:00 Dextrose (D50w Syringe) 50 ml Q15M PRN IV DECREASED GLUCOSE; Start 01/29/19 at 07:00 Glucagon (Glucagen) 1 mg Q15M PRN IM DECREASED GLUCOSE; Start 01/29/19 at 07:00 Glucose (Glutose) 15 gm Q15M PRN BUCCAL DECREASED GLUCOSE; Start 01/29/19 at 07:00 Famotidine (Pepcid Iv) 20 mg BID IV Last administered on 01/30/19at 09:17; Admin Dose 20 MG; Start 01/30/19 at 09:00 Miscellaneous Information (*Rx Drug Level Order Reminder*) VANCO TROUGH @ 1,700 ONCE ONCE XX ; Start 01/30/19 at 17:00; Stop 01/30/19 at 17:01 Atorvastatin Calcium (Lipitor) 40 mg HS PO ; Start 01/29/19 at 21:00 Aspirin (Aspirin) 300 mg DAILY [place] Last administered on 01/30/19at 09:31; Admin Dose 300 MG; Start 01/29/19 at 18:56 DALTON VUONG MD Jan 30, 2019 14:13
[2019-01-30] MEDS: ACETAMINOPHEN 650MG/20.3ML CUP PO PRN ×2 (14:23→23:53)
[2019-01-30] MEDS ORDERED: POTASSIUM CHLORIDE (SR) 20 MEQ TAB PO STA (15:17)
--- NOTE | 2019-01-30 15:21 | CONS ---
Assessment/Plan Assessment/Plan Hospital Course (Demo Recall) Septic shock, improving Respiratory failure status post extubation Elevated troponin, likely type II myocardial infarction Cardiomyopathy with left ventricular ejection fraction 45% echocardiogram October 2018 Paroxysmal atrial fibrillation, currently sinus rhythm Parkinson's Diabetes Anemia -Patient was admitted with septic shock on IV pressors and intubated. He is currently extubated and off IV pressors -Troponins elevated and are since trending down. ECG with no significant ST abnormalities. On review of labs, patient with hemoglobin trending down. Currently on Lovenox, would recommend to follow hemoglobin closely. We will continue aspirin and statin therapy. -Blood pressure trend remained stable, start beta-cedric, 1 dose of IV Lasix -We will supplement magnesium and potassium Consultation Date/Type/Reason Admit Date/Time Jan 28, 2019 at 19:41 Initial Consult Date 01/29/19 Type of Consult Cardiology Date/Time of Note DATE: 01/30/19 TIME: 15:18 24 HR Interval Summary Free Text/Dictation Denies shortness of breath, chest pain, palpitations Exam/Review of Systems Vital Signs Vitals Vital Signs Date Temp Pulse Resp B/P (MAP) Pulse Ox O2 O2 Flow FiO2 Time Delivery Rate 01/30/19 97.9 14:23 01/30/19 78 11 144/65 99 Room Air 14:00 (91) 01/30/19 2.0 08:00 01/29/19 30 08:29 Intake and Output 01/29/19 01/29/19 01/30/19 1515:00 23:00 07:00 IntakeIntake Total 106 ml 700 ml 1080 ml OutputOutput Total 555 ml 405 ml 380 ml BalanceBalance -449 ml 295 ml 700 ml Exam Constitutional: alert (Following commands, no apparent distress, answering questions) Head: normocephalic Respiratory: other (Coarse breath sounds bilaterally, no wheezing) Cardiovascular: regular rate and rhythm (S1-S2 heard) Gastrointestinal: soft, non-tender, bowel sounds Extremities: edema (Trace) Labs Result Diagram: 01/30/19 0355 01/30/19 0355 Results 24hrs Laboratory Tests Test 01/29/19 18:16 01/29/19 21:01 01/30/19 01:40 01/30/19 03:55 Bedside Glucose 148 129 109 White Blood Count 12.6 #H Red Blood Count 3.12 L Hemoglobin 9.0 L Hematocrit 27.7 L Mean Corpuscular 88.8 Volume Mean Corpuscular 28.8 L Hemoglobin Mean Corpuscular 32.5 Hemoglobin Concent Red Cell 13.8 Distribution Width Platelet Count 250 Mean Platelet Volume 9.1 Immature 0.900 H Granulocytes % Neutrophils % 70.9 Lymphocytes % 16.9 Monocytes % 8.3 Eosinophils % 2.8 Basophils % 0.2 Nucleated Red Blood 0.0 Cells % Immature 0.110 H Granulocytes # Neutrophils # 9.0 H Lymphocytes # 2.1 Monocytes # 1.1 H Eosinophils # 0.4 Basophils # 0.0 Nucleated Red Blood 0.0 Cells # Sodium Level 142 Potassium Level 3.4 L Chloride Level 108 Carbon Dioxide Level 25 Anion Gap 9 Blood Urea Nitrogen 8 Creatinine 0.69 Est Glomerular Filtrat Rate mL/min Glucose Level 98 # Calcium Level 8.2 L Total Bilirubin 0.3 Direct Bilirubin 0.00 Indirect Bilirubin 0.3 Aspartate Amino 23 Transf (AST/SGOT) Alanine 20 Aminotransferase (AL T/SGPT) Alkaline Phosphatase 48 Total Protein 6.3 Albumin 3.1 L Globulin 3.20 Albumin/Globulin 0.96 Ratio Test 01/30/19 05:55 01/30/19 08:49 01/30/19 12:33 Bedside Glucose 106 111 194 Medications Medications Current Medications Vancomycin HCl (Vanco Iv Per Pharmacy) VANCOMYCIN PER PHARMACY PER PROTOCOL XX ; Start 01/28/19 at 20:00 Aztreonam 50 ml @ 100 mls/hr Q12 IVPB Last administered on 01/30/19at 09:17; Admin Dose 100 MLS/HR; Start 01/28/19 at 21:00 Albuterol (Ventolin Hfa) 4 puff Q2H RESP THERAPY PRN INH SHORTNESS OF BREATH; Start 01/28/19 at 20:00 Ipratropium [place] (Atrovent Hfa) 4 puff Q2H RESP THERAPY PRN INH SHORTNESS OF BREATH; Start 01/28/19 at 20:00 Acetaminophen (Tylenol Liquid) 650 mg Q6H PRN PO PAIN LEVEL 1-3 OR FEVER Last administered on 01/30/19at 14:23; Admin Dose 650 MG; Start 01/28/19 at 20:00 Vancomycin HCl 250 ml @ 125 mls/hr Q12H IVPB Last administered on 01/30/19at 05:53; Admin Dose 125 MLS/HR; Start 01/29/19 at 06:00 Enoxaparin Sodium (Lovenox) 70 mg Q12 SC Last administered on 01/30/19at 09:19; Admin Dose 70 MG; Start 01/28/19 at 23:30 Sodium Chloride 1,000 ml @ 80 mls/hr [id number] IV Last administered on 01/29/19at 23:59; Admin Dose 80 MLS/HR; Start 01/29/19 at 04:00 Dutasteride (Avodart) 0.5 mg QAM PO ; Start 01/29/19 at 09:00 Insulin Aspart (Novolog Insulin Pen) NOVOLOG *MILD* ALGORI... Q4 SC Last administered on 01/30/19at 12:36; Admin Dose 2 UNIT; Start 01/29/19 at 09:00 Miscellaneous Information 1 ea NOTE XX ; Start 01/29/19 at 07:00 Glucose (Glutose) 15 gm Q15M PRN PO DECREASED GLUCOSE; Start 01/29/19 at 07:00 Glucose (Glutose) 22.5 gm Q15M PRN PO DECREASED GLUCOSE; Start 01/29/19 at 07:00 Dextrose (D50w Syringe) 25 ml Q15M PRN IV DECREASED GLUCOSE; Start 01/29/19 at 07:00 Dextrose (D50w Syringe) 50 ml Q15M PRN IV DECREASED GLUCOSE; Start 01/29/19 at 07:00 Glucagon (Glucagen) 1 mg Q15M PRN IM DECREASED GLUCOSE; Start 01/29/19 at 07:00 Glucose (Glutose) 15 gm Q15M PRN BUCCAL DECREASED GLUCOSE; Start 01/29/19 at 07:00 Miscellaneous Information (*Rx Drug Level Order Reminder*) VANCO TROUGH @ 1,700 ONCE ONCE XX ; Start 01/30/19 at 17:00; Stop 01/30/19 at 17:01 Atorvastatin Calcium (Lipitor) 40 mg HS PO ; Start 01/29/19 at 21:00 Aspirin (Aspirin) 300 mg DAILY [place] Last administered on 01/30/19at 09:31; Admin Dose 300 MG; Start 01/29/19 at 18:56 Famotidine (Pepcid) 20 mg BID PO ; Start 01/30/19 at 21:00 Royce Rodriguez DO Jan 30, 2019 15:21
[2019-01-30] MEDS ORDERED: FUROSEMIDE 20 MG INJ IV ONE (15:30)
[2019-01-30] MEDS ORDERED: MAGNESIUM SULFATE 2 GM/50 ML 50 ML IVPB ONE (15:30)
[2019-01-30] MEDS ORDERED: NITROGLYCERIN (SL) 0.4 MG TAB SL PRN (17:00)
[2019-01-30] MEDS: SOD CHLORIDE 0.9% 1,000 ML IV SCH (18:23)
[2019-01-30] MEDS: ATORVASTATIN 40 MG TAB PO SCH (20:20)
[2019-01-30] MEDS: METOPROLOL 25 MG TAB PO SCH (20:21)
[2019-01-30] MEDS: FAMOTIDINE 20 MG TAB PO SCH (20:22)
[2019-01-31] VITALS (21 sets, daily range): BP systolic 120–156; BP diastolic 48–75; PULSE 58–85; RESP 13–23
[2019-01-31] MEDS: INSULIN ASPART [NOVOLOG] 3 ML PEN SC SCH ×6 (01:12→20:48)
[2019-01-31] MEDS: VANCOMYCIN 1 GM 250 ML IVPB SCH (05:27)
[2019-01-31] MEDS: SOD CHLORIDE 0.9% 1,000 ML IV SCH ×2 (05:29→17:23)
[2019-01-31] MEDS: FAMOTIDINE 20 MG TAB PO SCH ×2 (10:17→20:40)
[2019-01-31] MEDS: DUTASTERIDE 0.5 MG CAP PO SCH (10:17)
[2019-01-31] MEDS: ASPIRIN 300 MG SUPP PR SCH (10:18)
[2019-01-31] MEDS: METOPROLOL 25 MG TAB PO SCH ×2 (10:18→20:40)
[2019-01-31] MEDS: ENOXAPARIN 80 MG/0.8 ML SYG SC SCH ×2 (10:19→20:48)
[2019-01-31] MEDS: BALSAM PERU/CASTOR OIL 60 GM TUBE TOP SCH ×2 (10:20→20:41)
--- NOTE | 2019-01-31 10:36 | PN ---
Date/Time of Note Date/Time of Note DATE: 01/31/19 TIME: 10:30 Assessment/Plan VTE Prophylaxis Risk score (from Ns)>0 risk: 9 SCD applied (from Ns): Yes Pharmacological prophylaxis: LMWH Lines/Catheters IV Catheter Type (from Nrsg): Central Line Central line still needed: Yes Urinary Cath still in place: Yes Reason Cath still needed: urinary retention Assessment/Plan Assessment/Plan 78 yo man with history of Parkinson's disease, paroxysmal atrial fibrillation, and benign prostatic hypertrophy presenting with acute respiratory failure #septic shock: Resolved - Possibly due to catheter related UTI or pneumonia. - Apparently patient is not compliant with his dysphagia diet so this could be aspiration. - ID following, they are continuing vanco and aztreonam. #Candiduria - Got one dose of fluconazole per ID. #Elevated troponins - Now downtrending appropriately - Dr Rodriguez following. # Parkinson's disease: Resume home medications when indicated # Atrial fibrillation: Continue lovenox inpatient, discharge back on xarelto # BPH: Esposito catheter in place # DVT GI prophylaxis: Lovenox, Protonix Further treatment strategy will be implemented as per the clinical course Greater than 45 minutes of critical care time was spent on the care and management of this patient. Result Diagram: 01/31/1942901/31/19429 Subjective 24 Hr Interval Summary Free Text/Dictation Apparently patient had brief chest pain yesterday evening, lasted 10 minutes, self resolved. Otherwise no major overnight events. Has multimorphic QRS on tele. Exam/Review of Systems Exam Vitals Vital Signs Date Temp Pulse Resp B/P (MAP) Pulse Ox O2 O2 Flow FiO2 Time Delivery Rate 01/31/19 70 19 145/60 100 Room Air 06:00 (88) 01/31/19 98.2 04:00 01/30/19 2.0 15:45 01/29/19 30 08:29 Intake and Output 01/30/19 01/30/19 01/31/19 1515:00 23:00 07:00 IntakeIntake Total 910 ml 1000 ml OutputOutput Total 490 ml 2605 ml 680 ml BalanceBalance 420 ml -2605 ml 320 ml Exam General: Elderly man sitting up in bed breathing comfortably on nasal cannula HEENT: Atraumatic, normocephalic. The pupils are equal, round and reactive. Neck: Supple with full range of motion. No rigidity or meningismus, right IJ central line Chest: Nontender Lungs: Coarse breath sounds bilaterally Heart: Normal S1-S2, Regular rhythm and rate. Abdomen: Soft , nontender, nondistended , bowel sounds are present. No guarding no rebound tenderness , No masses or organomegaly. No costovertebral temporal angle mass Extremities: Normal to inspection, no edema no cyanosis Neurologic: Awake and alert Results Results 24hrs Laboratory Tests Test 01/30/19 12:33 01/30/19 17:01 01/30/19 17:21 01/30/19 20:18 Bedside Glucose 194 137 133 Troponin I 0.561 *H Vancomycin Level 14.5 Trough Test 01/30/19 23:32 01/31/19 01:08 01/31/19 01:10 01/31/19 04:30 Troponin I 0.506 *H Bedside Glucose 170 175 White Blood Count 10.6 Red Blood Count 3.10 L Hemoglobin 9.1 L Hematocrit 26.9 L Mean Corpuscular 86.8 Volume Mean Corpuscular 29.4 Hemoglobin Mean Corpuscular 33.8 Hemoglobin Concent Red Cell 13.4 Distribution Width Platelet Count 261 Mean Platelet Volume 9.1 Immature 0.600 H Granulocytes % Neutrophils % 66.1 Lymphocytes % 19.7 Monocytes % 9.9 Eosinophils % 3.4 Basophils % 0.3 Nucleated Red Blood 0.0 Cells % Immature 0.060 H Granulocytes # Neutrophils # 7.0 Lymphocytes # 2.1 Monocytes # 1.1 H Eosinophils # 0.4 Basophils # 0.0 Nucleated Red Blood 0.0 Cells # Sodium Level 140 Potassium Level 3.7 Chloride Level 108 Carbon Dioxide Level 25 Anion Gap 7 Blood Urea Nitrogen 7 Creatinine 0.69 Est Glomerular Filtrat Rate mL/min Glucose Level 123 Calcium Level 8.5 Total Bilirubin 0.3 Direct Bilirubin 0.00 Indirect Bilirubin 0.3 Aspartate Amino 25 Transf (AST/SGOT) Alanine 17 Aminotransferase (AL T/SGPT) Alkaline Phosphatase 53 Total Protein 6.3 Albumin 3.1 L Globulin 3.20 Albumin/Globulin 0.96 Ratio Test 01/31/19 05:28 01/31/19 09:17 Bedside Glucose 143 132 Medications Medication Current Medications Vancomycin HCl (Vanco Iv Per Pharmacy) VANCOMYCIN PER PHARMACY PER PROTOCOL XX ; Start 01/28/19 at 20:00 Aztreonam 50 ml @ 100 mls/hr Q12 IVPB Last administered on 01/30/19at 20:22; Admin Dose 100 MLS/HR; Start 01/28/19 at 21:00 Albuterol (Ventolin Hfa) 4 puff Q2H RESP THERAPY PRN INH SHORTNESS OF BREATH; Start 01/28/19 at 20:00 Ipratropium [place] (Atrovent Hfa) 4 puff Q2H RESP THERAPY PRN INH SHORTNESS OF BREATH; Start 01/28/19 at 20:00 Acetaminophen (Tylenol Liquid) 650 mg Q6H PRN PO PAIN LEVEL 1-3 OR FEVER Last administered on 01/30/19at 23:53; Admin Dose 650 MG; Start 01/28/19 at 20:00 Vancomycin HCl 250 ml @ 125 mls/hr Q12H IVPB Last administered on 01/31/19 05 :27; Admin Dose 125 MLS/HR; Start 01/29/19 at 06:00 Enoxaparin Sodium (Lovenox) 70 mg Q12 SC Last administered on 01/31/19at 10:19; Admin Dose 70 MG; Start 01/28/19 at 23:30 Sodium Chloride 1,000 ml @ 80 mls/hr [id number] IV Last administered on 01/31/19 05:29; Admin Dose 80 MLS/HR; Start 01/29/19 at 04:00 Dutasteride (Avodart) 0.5 mg QAM PO Last administered on 01/31/19at 10:17; Admin Dose 0.5 MG; Start 01/29/19 at 09:00 Insulin Aspart (Novolog Insulin Pen) NOVOLOG *MILD* ALGORI... Q4 SC Last administered on 01/31/19at 05:37; Admin Dose 1 UNIT; Start 01/29/19 at 09:00 Miscellaneous Information 1 ea NOTE XX ; Start 01/29/19 at 07:00 Glucose (Glutose) 15 gm Q15M PRN PO DECREASED GLUCOSE; Start 01/29/19 at 07:00 Glucose (Glutose) 22.5 gm Q15M PRN PO DECREASED GLUCOSE; Start 01/29/19 at 07: 00 Dextrose (D50w Syringe) 25 ml Q15M PRN IV DECREASED GLUCOSE; Start 01/29/19 at 07:00 Dextrose (D50w Syringe) 50 ml Q15M PRN IV DECREASED GLUCOSE; Start 01/29/19 at 07:00 Glucagon (Glucagen) 1 mg Q15M PRN IM DECREASED GLUCOSE; Start 01/29/19 at 07:00 Glucose (Glutose) 15 gm Q15M PRN BUCCAL DECREASED GLUCOSE; Start 01/29/19 at 07:00 Atorvastatin Calcium (Lipitor) 40 mg HS PO Last administered on 01/30/19 20:20; Admin Dose 40 MG; Start 01/29/19 at 21:00 Aspirin (Aspirin) 300 mg DAILY [place] Last administered on 01/31/19 10:18; Admin Dose 300 MG; Start 01/29/19 at 18:56 Famotidine (Pepcid) 20 mg BID PO Last administered on 01/31/19at 10:17; Admin Dose 20 MG; Start 01/30/19 at 21:00 Metoprolol Tartrate (Lopressor) 12.5 mg BID PO Last administered on 01/31/19 10:18; Admin Dose 12.5 MG; Start 01/30/19 at 21:00 Nitroglycerin (Nitroglycerin (Sl Tab) 0.4 Mg) 1 tab Q5M PRN SL ANGINA; Start 01/30/19 at 17:00 DALTON VUONG MD Jan 31, 2019 10:36
[2019-01-31] MEDS: AZTREONAM 1 GM/NS (PMX) 50 ML IVPB SCH ×2 (11:32→20:39)
[2019-01-31] MEDS ORDERED: POTASSIUM CHLORIDE (SR) 20 MEQ TAB PO STA (12:51)
--- NOTE | 2019-01-31 12:52 | CONS ---
Assessment/Plan Assessment/Plan Hospital Course (Demo Recall) Septic shock, improving Respiratory failure status post extubation Elevated troponin, likely type II myocardial infarction Cardiomyopathy with left ventricular ejection fraction 45% echocardiogram October 2018 Paroxysmal atrial fibrillation, currently sinus rhythm Parkinson's Diabetes Anemia -Patient was admitted with septic shock on IV pressors and intubated. He is currently extubated and off IV pressors -Troponins elevated and are since trending down. ECG with no significant ST abnormalities. As per nurse, patient with chest discomfort yesterday. ECG reviewed last night with likely improper lead placement, ECG reviewed this morning, with no significant acute ischemic abnormalities. Troponins have remained trending down. Patient does not remember this episode denies any curr ent chest pain or shortness of breath. Discussion with primary hospitalist, troponin elevation likely secondary to hypotension, respiratory failure and sepsis. He does have issues of intermittent dysphagia as well as waxing and waning mental status. Given downtrending troponins, no significant ischemic abnormalities on ECG and asymptomatic, would continue conservative medical approach -Blood pressure trend remained stable, increase beta-cedric, spot Lasix Consultation Date/Type/Reason Admit Date/Time Jan 28, 2019 at 19:41 Initial Consult Date 01/29/19 Type of Consult Cardiology Date/Time of Note DATE: 01/31/19 TIME: 12:48 24 HR Interval Summary Free Text/Dictation Patient denies any chest pain, shortness of breath or dizziness. As per nurse, patient with chest discomfort yesterday which the patient does not remember Exam/Review of Systems Vital Signs Vitals Vital Signs Date Temp Pulse Resp B/P (MAP) Pulse Ox O2 O2 Flow FiO2 Time Delivery Rate 01/31/19 67 08:00 01/31/19 19 145/60 100 Room Air 06:00 (88) 01/31/19 98.2 04:00 01/30/19 2.0 15:45 01/29/19 30 08:29 Intake and Output 01/30/19 01/30/19 01/31/19 1515:00 23:00 07:00 IntakeIntake Total 910 ml 1000 ml OutputOutput Total 490 ml 2605 ml 680 ml BalanceBalance 420 ml -2605 ml 320 ml Exam Constitutional: alert, oriented (To person and place, following commands, no apparent distress) Head: normocephalic Respiratory: other (Coarse breath sounds bilaterally, no wheezing) Cardiovascular: regular rate and rhythm (S1-S2 heard) Gastrointestinal: soft, non-tender, bowel sounds Extremities: edema Labs Result Diagram: 01/31/19 0430 01/31/19 0430 Results 24hrs Laboratory Tests Test 01/30/19 17:01 01/30/19 17:21 01/30/19 20:18 01/30/19 23:32 Troponin I 0.561 *H 0.506 *H Vancomycin Level 14.5 Trough Bedside Glucose 137 133 Test 01/31/19 01:08 01/31/19 01:10 01/31/19 04:30 01/31/19 05:28 Bedside Glucose 170 175 143 White Blood Count 10.6 Red Blood Count 3.10 L Hemoglobin 9.1 L Hematocrit 26.9 L Mean Corpuscular 86.8 Volume Mean Corpuscular 29.4 Hemoglobin Mean Corpuscular 33.8 Hemoglobin Concent Red Cell 13.4 Distribution Width Platelet Count 261 Mean Platelet Volume 9.1 Immature 0.600 H Granulocytes % Neutrophils % 66.1 Lymphocytes % 19.7 Monocytes % 9.9 Eosinophils % 3.4 Basophils % 0.3 Nucleated Red Blood 0.0 Cells % Immature 0.060 H Granulocytes # Neutrophils # 7.0 Lymphocytes # 2.1 Monocytes # 1.1 H Eosinophils # 0.4 Basophils # 0.0 Nucleated Red Blood 0.0 Cells # Sodium Level 140 Potassium Level 3.7 Chloride Level 108 Carbon Dioxide Level 25 Anion Gap 7 Blood Urea Nitrogen 7 Creatinine 0.69 Est Glomerular Filtrat Rate mL/min Glucose Level 123 Calcium Level 8.5 Magnesium Level 2.2 Total Bilirubin 0.3 Direct Bilirubin 0.00 Indirect Bilirubin 0.3 Aspartate Amino 25 Transf (AST/SGOT) Alanine 17 Aminotransferase (AL T/SGPT) Alkaline Phosphatase 53 Total Protein 6.3 Albumin 3.1 L Globulin 3.20 Albumin/Globulin 0.96 Ratio Test 01/31/19 09:17 Bedside Glucose 132 Medications Medications Current Medications Vancomycin HCl (Vanco Iv Per Pharmacy) VANCOMYCIN PER PHARMACY PER PROTOCOL XX ; Start 01/28/19 at 20:00 Aztreonam 50 ml @ 100 mls/hr Q12 IVPB Last administered on 01/31/19at 11:32; Admin Dose 100 MLS/HR; Start 01/28/19 at 21:00 Albuterol (Ventolin Hfa) 4 puff Q2H RESP THERAPY PRN INH SHORTNESS OF BREATH; Start 01/28/19 at 20:00 Ipratropium [place] (Atrovent Hfa) 4 puff Q2H RESP THERAPY PRN INH SHORTNESS OF BREATH; Start 01/28/19 at 20:00 Acetaminophen (Tylenol Liquid) 650 mg Q6H PRN PO PAIN LEVEL 1-3 OR FEVER Last administered on 01/30/19 23:53; Admin Dose 650 MG; Start 01/28/19 at 20:00 Vancomycin HCl 250 ml @ 125 mls/hr Q12H IVPB Last administered on 01/31/19 05:27; Admin Dose 125 MLS/HR; Start 01/29/19 at 06:00 Enoxaparin Sodium (Lovenox) 70 mg Q12 SC Last administered on 01/31/19 10:19; Admin Dose 70 MG; Start 01/28/19 at 23:30 Sodium Chloride 1,000 ml @ 80 mls/hr [id number] IV Last administered on 01/31/19 05:29; Admin Dose 80 MLS/HR; Start 01/29/19 at 04:00 Dutasteride (Avodart) 0.5 mg QAM PO Last administered on 01/31/19 10:17; Admin Dose 0.5 MG; Start 01/29/19 at 09:00 Insulin Aspart (Novolog Insulin Pen) NOVOLOG *MILD* ALGORI... Q4 SC Last administered on 01/31/19 05:37; Admin Dose 1 UNIT; Start 01/29/19 at 09:00 Miscellaneous Information 1 ea NOTE XX ; Start 01/29/19 at 07:00 Glucose (Glutose) 15 gm Q15M PRN PO DECREASED GLUCOSE; Start 01/29/19 at 07:00 Glucose (Glutose) 22.5 gm Q15M PRN PO DECREASED GLUCOSE; Start 01/29/19 at 07:00 Dextrose (D50w Syringe) 25 ml Q15M PRN IV DECREASED GLUCOSE; Start 01/29/19 at 07:00 Dextrose (D50w Syringe) 50 ml Q15M PRN IV DECREASED GLUCOSE; Start 01/29/19 at 07:00 Glucagon (Glucagen) 1 mg Q15M PRN IM DECREASED GLUCOSE; Start 01/29/19 at 07:00 Glucose (Glutose) 15 gm Q15M PRN BUCCAL DECREASED GLUCOSE; Start 01/29/19 at 07:00 Atorvastatin Calcium (Lipitor) 40 mg HS PO Last administered on 01/30/19at 20:20; Admin Dose 40 MG; Start 01/29/19 at 21:00 Aspirin (Aspirin) 300 mg DAILY [place] Last administered on 01/31/19at 10:18; Admin Dose 300 MG; Start 01/29/19 at 18:56 Famotidine (Pepcid) 20 mg BID PO Last administered on 01/31/19at 10:17; Admin Dose 20 MG; Start 01/30/19 at 21:00 Metoprolol Tartrate (Lopressor) 12.5 mg BID PO Last administered on 01/31/19 10:18; Admin Dose 12.5 MG; Start 01/30/19 at 21:00 Nitroglycerin (Nitroglycerin (Sl Tab) 0.4 Mg) 1 tab Q5M PRN SL ANGINA; Start 01/30/19 at 17:00 Royce Rodriguez DO Jan 31, 2019 12:52
[2019-01-31] MEDS ORDERED: FUROSEMIDE 20 MG INJ IV ONE (13:00)
--- NOTE | 2019-01-31 13:20 | CONS ---
Assessment/Plan Assessment/Plan Hospital Course (Demo Recall) Patient is weak lethargic arousable in no distress no fevers overnight. WBC 10.6 platelets 261 neutrophils 66.1 BUN 7 creatinine 0.69 Microbiology: Urine and sputum culture growing Berenice albicans Allergies:, Resolving, present on admission none Antimicrobials: Patient remains on IV vancomycin and aztreonam, status post fluconazole dose yesterday Physical examination: This is a fragile chronically ill-appearing elderly man who is laying comfortably in bed. Head atraumatic normocephalic, sclera nonicteric. Neck is supple, chest rise symmetrical, breath sounds diminished at bases. Heart: S1-S2. Abdomen soft, bowel sounds present. Extremities with trace edema. Assessment: Severe sepsis, present on admission, resolving Status post acute respiratory failure, extubated Pneumonia Urinary tract infection Acute possibly on chronic encephalopathy NSTEMI Atrial fibrillation Parkinson's dementia BPH with chronic Esposito catheter Plan: Remains stable, start fluconazole, DC Vanco, continue aspiration precautions, pending transfer to the floor Consultation Date/Type/Reason Admit Date/Time Jan 28, 2019 at 19:41 Initial Consult Date 01/29/19 Type of Consult id Date/Time of Note DATE: 01/31/19 TIME: 13:18 Exam/Review of Systems Exam Vitals Vital Signs Date Temp Pulse Resp B/P (MAP) Pulse Ox O2 O2 Flow FiO2 Time Delivery Rate 01/31/19 67 08:00 01/31/19 19 145/60 100 Room Air 06:00 (88) 01/31/19 98.2 04:00 01/30/19 2.0 15:45 01/29/19 30 08:29 Intake and Output 01/30/19 01/30/19 01/31/19 1515:00 23:00 07:00 IntakeIntake Total 910 ml 1000 ml OutputOutput Total 490 ml 2605 ml 680 ml BalanceBalance 420 ml -2605 ml 320 ml Results Result Diagram: 01/31/19 0430 01/31/19 0430 Results 24hrs Laboratory Tests Test 01/30/19 17:01 01/30/19 17:21 01/30/19 20:18 01/30/19 23:32 Troponin I 0.561 *H 0.506 *H Vancomycin Level 14.5 Trough Bedside Glucose 137 133 Test 01/31/19 01:08 01/31/19 01:10 01/31/19 04:30 01/31/19 05:28 Bedside Glucose 170 175 143 White Blood Count 10.6 Red Blood Count 3.10 L Hemoglobin 9.1 L Hematocrit 26.9 L Mean Corpuscular 86.8 Volume Mean Corpuscular 29.4 Hemoglobin Mean Corpuscular 33.8 Hemoglobin Concent Red Cell 13.4 Distribution Width Platelet Count 261 Mean Platelet Volume 9.1 Immature 0.600 H Granulocytes % Neutrophils % 66.1 Lymphocytes % 19.7 Monocytes % 9.9 Eosinophils % 3.4 Basophils % 0.3 Nucleated Red Blood 0.0 Cells % Immature 0.060 H Granulocytes # Neutrophils # 7.0 Lymphocytes # 2.1 Monocytes # 1.1 H Eosinophils # 0.4 Basophils # 0.0 Nucleated Red Blood 0.0 Cells # Sodium Level 140 Potassium Level 3.7 Chloride Level 108 Carbon Dioxide Level 25 Anion Gap 7 Blood Urea Nitrogen 7 Creatinine 0.69 Est Glomerular Filtrat Rate mL/min Glucose Level 123 Calcium Level 8.5 Magnesium Level 2.2 Total Bilirubin 0.3 Direct Bilirubin 0.00 Indirect Bilirubin 0.3 Aspartate Amino 25 Transf (AST/SGOT) Alanine 17 Aminotransferase (AL T/SGPT) Alkaline Phosphatase 53 Total Protein 6.3 Albumin 3.1 L Globulin 3.20 Albumin/Globulin 0.96 Ratio Test 01/31/19 09:17 Bedside Glucose 132 Medications Medication Current Medications Vancomycin HCl (Vanco Iv Per Pharmacy) VANCOMYCIN PER PHARMACY PER PROTOCOL XX ; Start 01/28/19 at 20:00 Aztreonam 50 ml @ 100 mls/hr Q12 IVPB Last administered on 01/31/19at 11:32; Admin Dose 100 MLS/HR; Start 01/28/19 at 21:00 Albuterol (Ventolin Hfa) 4 puff Q2H RESP THERAPY PRN INH SHORTNESS OF BREATH; Start 01/28/19 at 20:00 Ipratropium [place] (Atrovent Hfa) 4 puff Q2H RESP THERAPY PRN INH SHORTNESS OF BREATH; Start 01/28/19 at 20:00 Acetaminophen (Tylenol Liquid) 650 mg Q6H PRN PO PAIN LEVEL 1-3 OR FEVER Last administered on 01/30/19at 23:53; Admin Dose 650 MG; Start 01/28/19 at 20:00 Vancomycin HCl 250 ml @ 125 mls/hr Q12H IVPB Last administered on 01/31/19 05:27; Admin Dose 125 MLS/HR; Start 01/29/19 at 06:00 Enoxaparin Sodium (Lovenox) 70 mg Q12 [place] Last administered on 01/31/19 10:19; Admin Dose 70 MG; Start 01/28/19 at 23:30 Sodium Chloride 1,000 ml @ 80 mls/hr [id number] IV Last administered on 01/31/19 05:29; Admin Dose 80 MLS/HR; Start 01/29/19 at 04:00 Dutasteride (Avodart) 0.5 mg QAM PO Last administered on 01/31/19 10:17; Admin Dose 0.5 MG; Start 01/29/19 at 09:00 Insulin Aspart (Novolog Insulin Pen) NOVOLOG *MILD* ALGORI... Q4 [place] Last administered on 01/31/19 05:37; Admin Dose 1 UNIT; Start 01/29/19 at 09:00 Miscellaneous Information 1 ea NOTE XX ; Start 01/29/19 at 07:00 Glucose (Glutose) 15 gm Q15M PRN PO DECREASED GLUCOSE; Start 01/29/19 at 07:00 Glucose (Glutose) 22.5 gm Q15M PRN PO DECREASED GLUCOSE; Start 01/29/19 at 07:00 Dextrose (D50w Syringe) 25 ml Q15M PRN IV DECREASED GLUCOSE; Start 01/29/19 at 07:00 Dextrose (D50w Syringe) 50 ml Q15M PRN IV DECREASED GLUCOSE; Start 01/29/19 at 07:00 Glucagon (Glucagen) 1 mg Q15M PRN IM DECREASED GLUCOSE; Start 01/29/19 at 07:00 Glucose (Glutose) 15 gm Q15M PRN BUCCAL DECREASED GLUCOSE; Start 01/29/19 at 07:00 Atorvastatin Calcium (Lipitor) 40 mg HS PO Last administered on 01/30/19at 20:20; Admin Dose 40 MG; Start 01/29/19 at 21:00 Famotidine (Pepcid) 20 mg BID PO Last administered on 01/31/19at 10:17; Admin Dose 20 MG; Start 01/30/19 at 21:00 Nitroglycerin (Nitroglycerin (Sl Tab) 0.4 Mg) 1 tab Q5M PRN SL ANGINA; Start 01/30/19 at 17:00 Metoprolol Tartrate (Lopressor) 25 mg BID PO ; Start 01/31/19 at 21:00 Aspirin (Aspirin) 81 mg DAILY PO ; Start 02/01/19 at 09:00 KAVITHA WRIGHT NP Jan 31, 2019 13:20
--- NOTE | 2019-01-31 13:40 | RADRPT ---
Echocardiogram Report Patient Name: MINOR ALMAGUERPatient ID: [id number] : 1940 (78y 2m)Study Date: 01/29/2019 7:02:34 AM Gender: MAccession #: [id number] Tech: Promise Ragsdale RDCS Location: [facility] Ref.Physician: AINSLEY CRUZ Height(Cm): BSA: Weight(Kg): Quality: Technically Difficult StudyAccount #: Procedures: Echocardiographic Report: Transthoracic echocardiogram with complete 2D, M-Mode, and doppler examination. Indications: NSTEMI. Measurements: 2D/M Mode Doppler Measurement Value Normal Range Measurement Value Normal Range LVIDd 2D 4.1 [ 4.2 - 5.8 ] cm AV Peak [place] 1.1 [ 100.0 - 170.0 ] cm/sec LVIDs 2D 2.9 [ 2.5 - 4.0 ] cm AV Peak PG 5.0 [ 2.0 - 9.0 ] mmHg LVPWd 2D 1.4 [ 0.6 - 1.0 ] cm LVOT Peak [place] 0.6 [ 70.0 - 110.0 ] cm/sec IVSd 2D 1.5 [ 0.6 - 1.0 ] cm LVOT Peak PG 2.0 [ 2.0 - 6.0 ] mmHg AoR Diam 2D 3.6 [ 2.6 - 3.4 ] cm MV E Peak [place] 0.5 [ 60.0 - 130.0 ] cm/sec EDV 2D 72.5 [ 62.0 - 150.0 ] ml MV A Peak [place] 1.0 [ 100.0 - 120.0 ] cm/sec ESV 2D 31.1 [ 21.0 - 61.0 ] ml MV E/A 0.5 [ 0.8 - 1.5 ] ratio EF 2D 57.1 [ 52.0 - 72.0 ] percent MV Decel Time 211 [ 104 - 258 ] msec LA Dimen 2D 3.6 [ 3.0 - 4.0 ] cm Lat E` [place] 0.1 [ 10.0 - 15.0 ] cm/sec Lateral E/E` 9.0 [ 1.0 - 2.0 ] ratio MV E/A 0.5 [ 0.8 - 1.5 ] ratio Findings: Left Ventricle: Lower limits of normal systolic function. Normal left ventricular cavity size. Moderate concentric left ventricular hypertrophy. Ejection fraction is visually estimated at 50 %. Tissue Doppler/Mitral Doppler indices are consistent with impaired relaxation (Stage I diastolic dysfunction). Right Ventricle: Normal right ventricular size. Normal right ventricular systolic function. Left Atrium: The left atrium is normal in size. Right Atrium: The right atrium is normal in size. Mitral Valve: Mild mitral leaflet calcification. Mild mitral annular calcification. Trace mitral regurgitation. Aortic Valve: No significant aortic stenosis or insufficiency. Aortic cusps appear mildly calcified. Tricuspid Valve: Normal appearance and function of the tricuspid valve with trace physiologic regurgitation. Pulmonic Valve: Normal pulmonic valve appearance. Pericardium: Normal pericardium with no significant pericardial effusion. Aorta: Normal aortic root. IVC: Inferior vena cava without respiratory collapse, however, patient on ventilator. Conclusions: Lower limits of normal systolic function. Normal left ventricular cavity size. Moderate concentric left ventricular hypertrophy. Ejection fraction is visually estimated at 50 %. Tissue Doppler/Mitral Doppler indices are consistent with impaired relaxation (Stage I diastolic dysfunction). Normal right ventricular size. Normal right ventricular systolic function. The left atrium is normal in size. The right atrium is normal in size. No significant valvular stenosis or regurgitation seen. Normal pericardium with no significant pericardial effusion. Electronically Signed By: Royce Rodriguez 2019-01-31 13:39:59 PDT
--- NOTE | 2019-01-31 13:45 | RADRPT ---
Vent Rate: 81 bpm RR Interval: 0 msec [place] Interval: 218 msec QRS Duration: 80 msec QT Interval: 374 msec QTC Interval: 434 msec P-R-T [place]: 58 - -51 - 97 degrees Sinus rhythm with 1st degree AV block Left axis deviation Low voltage QRS Inferior infarct , age undetermined Abnormal ECG Electronically Signed By: Royce Rodriguez
[2019-01-31] MEDS: FLUCONAZOLE 100 MG TAB PO SCH (14:22)
[2019-01-31] MEDS: ATORVASTATIN 40 MG TAB PO SCH (20:40)
[2019-01-31] MEDS: ACETAMINOPHEN 650MG/20.3ML CUP PO PRN (20:40)
[2019-02-01] VITALS (17 sets, daily range): BP systolic 131–164; BP diastolic 65–82; PULSE 64–88; RESP 16–22
[2019-02-01] MEDS: ACCU-CHEK XX SCH (02:19)
[2019-02-01] MEDS: SOD CHLORIDE 0.9% 1,000 ML IV SCH ×2 (06:09→20:36)
[2019-02-01] MEDS: FAMOTIDINE 20 MG TAB PO SCH ×2 (08:08→20:34)
[2019-02-01] MEDS: DUTASTERIDE 0.5 MG CAP PO SCH (08:08)
[2019-02-01] MEDS: FLUCONAZOLE 100 MG TAB PO SCH (08:09)
[2019-02-01] MEDS: BALSAM PERU/CASTOR OIL 60 GM TUBE TOP SCH ×2 (08:09→20:40)
[2019-02-01] MEDS: METOPROLOL 25 MG TAB PO SCH ×2 (08:09→20:36)
[2019-02-01] MEDS: ASPIRIN 81 MG TAB PO SCH (08:09)
[2019-02-01] MEDS: INSULIN ASPART [NOVOLOG] 3 ML PEN SC SCH ×4 (08:21→20:33)
[2019-02-01] MEDS: ENOXAPARIN 80 MG/0.8 ML SYG SC SCH ×2 (08:21→20:33)
[2019-02-01] MEDS ORDERED: POTASSIUM CHLORIDE 20 MEQ POWDER FOR ORAL SOLN PO ONE (09:30)
[2019-02-01] MEDS: AZTREONAM 1 GM/NS (PMX) 50 ML IVPB SCH ×2 (10:25→20:39)
--- NOTE | 2019-02-01 13:02 | CONS ---
Assessment/Plan Assessment/Plan Hospital Course (Demo Recall) Transfer to telemetry, awake looks comfortable no fevers overnight. WBC 9.2, no shift no bands BUN 9 creatinine 0.73 Microbiology: Urine and sputum culture growing Berenice albicans Allergies: NONE Antimicrobials: Aztreonam, Fluconazole Physical examination: This is a fragile chronically ill-appearing elderly man who is awake, in no distress. Head atraumatic normocephalic, sclera nonicteric. Neck is supple, chest rise symmetrical, breath sounds diminished at bases. Heart: S1-S2. Abdomen soft, bowel sounds present. Extremities with trace edema. Assessment: Status post severe sepsis, present on admission Status post acute respiratory failure, extubated Pneumonia, possibly aspirated Urinary tract infection Acute possibly on chronic encephalopathy NSTEMI Atrial fibrillation Parkinson's dementia BPH with chronic Esposito catheter Plan: Remains stable, continue Azactam to complete 7 days, aspiration precautions Consultation Date/Type/Reason Admit Date/Time Jan 28, 2019 at 19:41 Initial Consult Date 01/29/19 Type of Consult id Date/Time of Note DATE: 02/01/19 TIME: 12:59 Exam/Review of Systems Exam Vitals Vital Signs Date Temp Pulse Resp B/P (MAP) Pulse Ox O2 O2 Flow FiO2 Time Delivery Rate 02/01/19 98.2 81 20 131/65 97 Room Air 11:09 (87) 01/31/19 1.0 08:00 01/29/19 30 08:29 Intake and Output 01/31/19 01/31/19 02/01/19 1515:00 23:00 07:00 IntakeIntake Total 770 ml 300 ml 120 ml OutputOutput Total 530 ml 1100 ml 700 ml BalanceBalance 240 ml -800 ml -580 ml Results Result Diagram: 02/01/19 0537 02/01/19 0537 Results 24hrs Laboratory Tests Test 01/31/19 17:28 01/31/19 20:42 02/01/19 02:15 02/01/19 05:37 Bedside Glucose 159 243 H 138 White Blood Count 9.2 Red Blood Count 3.37 L Hemoglobin 9.9 L Hematocrit 29.3 L Mean Corpuscular 86.9 Volume Mean Corpuscular 29.4 Hemoglobin Mean Corpuscular 33.8 Hemoglobin Concent Red Cell 13.2 Distribution Width Platelet Count 310 Mean Platelet Volume 9.0 Immature 0.700 H Granulocytes % Neutrophils % 66.4 Lymphocytes % 22.5 Monocytes % 8.0 Eosinophils % 2.1 Basophils % 0.3 Nucleated Red Blood 0.0 Cells % Immature 0.060 H Granulocytes # Neutrophils # 6.1 Lymphocytes # 2.1 Monocytes # 0.7 Eosinophils # 0.2 Basophils # 0.0 Nucleated Red Blood 0.0 Cells # Sodium Level 140 Potassium Level 3.4 L Chloride Level 102 Carbon Dioxide Level 26 Anion Gap 12 Blood Urea Nitrogen 9 Creatinine 0.73 Est Glomerular Filtrat Rate mL/min Glucose Level 148 Calcium Level 8.6 Total Bilirubin 0.3 Direct Bilirubin 0.00 Indirect Bilirubin 0.3 Aspartate Amino 27 Transf (AST/SGOT) Alanine 22 Aminotransferase (AL T/SGPT) Alkaline Phosphatase 53 Total Protein 6.6 Albumin 3.2 L Globulin 3.40 H Albumin/Globulin 0.94 Ratio Test 02/01/19 08:06 02/01/19 11:55 Bedside Glucose 155 174 Medications Medication Current Medications Aztreonam 50 ml @ 100 mls/hr Q12 IVPB Last administered on 02/01/19at 10:25; Admin Dose 100 MLS/HR; Start 01/28/19 at 21:00 Albuterol (Ventolin Hfa) 4 puff Q2H RESP THERAPY PRN INH SHORTNESS OF BREATH; Start 01/28/19 at 20:00 Ipratropium [place] (Atrovent Hfa) 4 puff Q2H RESP THERAPY PRN INH SHORTNESS OF BREATH; Start 01/28/19 at 20:00 Acetaminophen (Tylenol Liquid) 650 mg Q6H PRN PO PAIN LEVEL 1-3 OR FEVER Last administered on 01/31/19at 20:40; Admin Dose 650 MG; Start 01/28/19 at 20:00 Enoxaparin Sodium (Lovenox) 70 mg Q12 [place] Last administered on 02/01/19 08:21; Admin Dose 70 MG; Start 01/28/19 at 23:30 Sodium Chloride 1,000 ml @ 80 mls/hr [id number] IV Last administered on 02/01/19at 06:09; Admin Dose 80 MLS/HR; Start 01/29/19 at 04:00 Dutasteride (Avodart) 0.5 mg QAM PO Last administered on 02/01/19 08:08; Admin Dose 0.5 MG; Start 01/29/19 at 09:00 Miscellaneous Information 1 ea NOTE XX ; Start 01/29/19 at 07:00 Glucose (Glutose) 15 gm Q15M PRN PO DECREASED GLUCOSE; Start 01/29/19 at 07:00 Glucose (Glutose) 22.5 gm Q15M PRN PO DECREASED GLUCOSE; Start 01/29/19 at 07:00 Dextrose (D50w Syringe) 25 ml Q15M PRN IV DECREASED GLUCOSE; Start 01/29/19 at 07:00 Dextrose (D50w Syringe) 50 ml Q15M PRN IV DECREASED GLUCOSE; Start 01/29/19 at 07:00 Glucagon (Glucagen) 1 mg Q15M PRN IM DECREASED GLUCOSE; Start 01/29/19 at 07:00 Glucose (Glutose) 15 gm Q15M PRN BUCCAL DECREASED GLUCOSE; Start 01/29/19 at 07:00 Atorvastatin Calcium (Lipitor) 40 mg HS PO Last administered on 01/31/19at 20:40; Admin Dose 40 MG; Start 01/29/19 at 21:00 Famotidine (Pepcid) 20 mg BID PO Last administered on 02/01/19at 08:08; Admin Dose 20 MG; Start 01/30/19 at 21:00 Nitroglycerin (Nitroglycerin (Sl Tab) 0.4 Mg) 1 tab Q5M PRN SL ANGINA; Start 01/30/19 at 17:00 Metoprolol Tartrate (Lopressor) 25 mg BID PO Last administered on 02/01/19at 08:09; Admin Dose 25 MG; Start 01/31/19 at 21:00 Aspirin (Aspirin) 81 mg DAILY PO Last administered on 02/01/19at 08:09; Admin Dose 81 MG; Start 02/01/19 at 09:00 Fluconazole (Diflucan) 100 mg DAILY PO Last administered on 02/01/19at 08:09; Admin Dose 100 MG; Start 01/31/19 at 13:30 Diagnostic Test (Pha) (Accu-Chek) 1 ea 02 XX Last administered on 02/01/19at 02:19; Admin Dose 1 EA; Start 02/01/19 at 02:00 Insulin Aspart (Novolog Insulin Pen) NOVOLOG *MILD* ALGORITHM WITH MEALS BEDTIME SC Last administered on 02/01/19at 11:57; Admin Dose 1 UNIT; Start 01/31/19 at 17:55 KAVITHA WRIGHT NP Feb 01, 2019 13:02
--- NOTE | 2019-02-01 14:09 | CONS ---
Assessment/Plan Assessment/Plan Assessment/Plan (Daily) Assessment: Septic shock, improving Respiratory failure status post extubation Elevated troponin, likely type II myocardial infarction Cardiomyopathy with left ventricular ejection fraction 45% echocardiogram October 2018 Paroxysmal atrial fibrillation, currently sinus rhythm Parkinson's disease Diabetes Anemia Plan: medical mgt continue meds Consultation Date/Type/Reason Admit Date/Time Jan 28, 2019 at 19:41 Initial Consult Date 01/29/19 Type of Consult Cardiology Date/Time of Note DATE: 02/01/19 TIME: 14:07 24 HR Interval Summary Subjective hx not possible: pt critical status Detailed Summary Respiratory: no complaints Cardiovascular: no complaints Gastrointestinal: no complaints Musculoskeletal: no complaints Skin: no complaints Neurologic: confusion Exam/Review of Systems Vital Signs Vitals Vital Signs Date Temp Pulse Resp B/P (MAP) Pulse Ox O2 O2 Flow FiO2 Time Delivery Rate 02/01/19 98.3 64 18 154/77 99 Room Air 13:07 (102) 01/31/19 1.0 08:00 01/29/19 30 08:29 Intake and Output 01/31/19 01/31/19 02/01/19 1515:00 23:00 07:00 IntakeIntake Total 770 ml 300 ml 120 ml OutputOutput Total 530 ml 1100 ml 700 ml BalanceBalance 240 ml -800 ml -580 ml Exam Constitutional: frail Head: normocephalic, atraumatic Neck: supple Respiratory: clear to auscultation Cardiovascular: regular rate and rhythm Gastrointestinal: soft Musculoskeletal: nl extremities to inspection Labs Result Diagram: 02/01/19 0537 02/01/19 0537 Results 24hrs Laboratory Tests Test 01/31/19 17:28 01/31/19 20:42 02/01/19 02:15 02/01/19 05:37 Bedside Glucose 159 243 H 138 White Blood Count 9.2 Red Blood Count 3.37 L Hemoglobin 9.9 L Hematocrit 29.3 L Mean Corpuscular 86.9 Volume Mean Corpuscular 29.4 Hemoglobin Mean Corpuscular 33.8 Hemoglobin Concent Red Cell 13.2 Distribution Width Platelet Count 310 Mean Platelet Volume 9.0 Immature 0.700 H Granulocytes % Neutrophils % 66.4 Lymphocytes % 22.5 Monocytes % 8.0 Eosinophils % 2.1 Basophils % 0.3 Nucleated Red Blood 0.0 Cells % Immature 0.060 H Granulocytes # Neutrophils # 6.1 Lymphocytes # 2.1 Monocytes # 0.7 Eosinophils # 0.2 Basophils # 0.0 Nucleated Red Blood 0.0 Cells # Sodium Level 140 Potassium Level 3.4 L Chloride Level 102 Carbon Dioxide Level 26 Anion Gap 12 Blood Urea Nitrogen 9 Creatinine 0.73 Est Glomerular Filtrat Rate mL/min Glucose Level 148 Calcium Level 8.6 Total Bilirubin 0.3 Direct Bilirubin 0.00 Indirect Bilirubin 0.3 Aspartate Amino 27 Transf (AST/SGOT) Alanine 22 Aminotransferase (AL T/SGPT) Alkaline Phosphatase 53 Total Protein 6.6 Albumin 3.2 L Globulin 3.40 H Albumin/Globulin 0.94 Ratio Test 02/01/19 08:06 02/01/19 11:55 Bedside Glucose 155 174 Medications Medications Current Medications Aztreonam 50 ml @ 100 mls/hr Q12 IVPB Last administered on 02/01/19at 10:25; Admin Dose 100 MLS/HR; Start 01/28/19 at 21:00 Albuterol (Ventolin Hfa) 4 puff Q2H RESP THERAPY PRN INH SHORTNESS OF BREATH; Start 01/28/19 at 20:00 Ipratropium [place] (Atrovent Hfa) 4 puff Q2H RESP THERAPY PRN INH SHORTNESS OF BREATH; Start 01/28/19 at 20:00 Acetaminophen (Tylenol Liquid) 650 mg Q6H PRN PO PAIN LEVEL 1-3 OR FEVER Last administered on 01/31/19at 20:40; Admin Dose 650 MG; Start 01/28/19 at 20:00 Enoxaparin Sodium (Lovenox) 70 mg Q12 SC Last administered on 02/01/19at 08:21; Admin Dose 70 MG; Start 01/28/19 at 23:30 Sodium Chloride 1,000 ml @ 80 mls/hr [id number] IV Last administered on 02/01/19at 06:09; Admin Dose 80 MLS/HR; Start 01/29/19 at 04:00 Dutasteride (Avodart) 0.5 mg QAM PO Last administered on 02/01/19at 08:08; Admin Dose 0.5 MG; Start 01/29/19 at 09:00 Miscellaneous Information 1 ea NOTE XX ; Start 01/29/19 at 07:00 Glucose (Glutose) 15 gm Q15M PRN PO DECREASED GLUCOSE; Start 01/29/19 at 07:00 Glucose (Glutose) 22.5 gm Q15M PRN PO DECREASED GLUCOSE; Start 01/29/19 at 07:00 Dextrose (D50w Syringe) 25 ml Q15M PRN IV DECREASED GLUCOSE; Start 01/29/19 at 07:00 Dextrose (D50w Syringe) 50 ml Q15M PRN IV DECREASED GLUCOSE; Start 01/29/19 at 07:00 Glucagon (Glucagen) 1 mg Q15M PRN IM DECREASED GLUCOSE; Start 01/29/19 at 07:00 Glucose (Glutose) 15 gm Q15M PRN BUCCAL DECREASED GLUCOSE; Start 01/29/19 at 07:00 Atorvastatin Calcium (Lipitor) 40 mg HS PO Last administered on 01/31/19at 20:40; Admin Dose 40 MG; Start 01/29/19 at 21:00 Famotidine (Pepcid) 20 mg BID PO Last administered on 02/01/19 08:08; Admin Dose 20 MG; Start 01/30/19 at 21:00 Nitroglycerin (Nitroglycerin (Sl Tab) 0.4 Mg) 1 tab Q5M PRN SL ANGINA; Start 01/30/19 at 17:00 Metoprolol Tartrate (Lopressor) 25 mg BID PO Last administered on 02/01/19 08:09; Admin Dose 25 MG; Start 01/31/19 at 21:00 Aspirin (Aspirin) 81 mg DAILY PO Last administered on 02/01/19 08:09; Admin Dose 81 MG; Start 02/01/19 at 09:00 Fluconazole (Diflucan) 100 mg DAILY PO Last administered on 02/01/19 08:09; Admin Dose 100 MG; Start 01/31/19 at 13:30 Diagnostic Test (Pha) (Accu-Chek) 1 ea 02 XX Last administered on 02/01/19 02:19; Admin Dose 1 EA; Start 02/01/19 at 02:00 Insulin Aspart (Novolog Insulin Pen) NOVOLOG *MILD* ALGORITHM WITH MEALS BEDTIME SC Last administered on 02/01/19at 11:57; Admin Dose 1 UNIT; Start 01/31/19 at 17:55 SERGIO YODER MD Feb 01, 2019 14:09
--- NOTE | 2019-02-01 16:04 | PN ---
Date/Time of Note Date/Time of Note DATE: 02/01/19 TIME: 16:02 Assessment/Plan VTE Prophylaxis Risk score (from Ns)>0 risk: 10 SCD applied (from Ns): Yes Pharmacological prophylaxis: LMWH Lines/Catheters IV Catheter Type (from Nrsg): Central Line Central line still needed: Yes Urinary Cath still in place: Yes Reason Cath still needed: urinary retention Assessment/Plan Assessment/Plan 78 yo man with history of Parkinson's disease, paroxysmal atrial fibrillation, and benign prostatic hypertrophy presenting with acute respiratory failure #septic shock: Resolved - Possibly due to catheter related UTI or pneumonia. - Apparently patient is not compliant with his dysphagia diet so this could be aspiration. - ID following, they are continuing aztreonam. #Dysphagia - Plan for video swallow evaluation - This admission may have been due to aspiration. #Candiduria - fluconazole per ID. #Elevated troponins - Now downtrending appropriately - Dr Rodriguez following. # Parkinson's disease: Resume home medications when indicated # Atrial fibrillation: Continue lovenox inpatient, discharge back on xarelto # BPH: Esposito catheter in place # DVT GI prophylaxis: Lovenox, Protonix Result Diagram: 02/01/19 0537 [birth year]1937 Subjective 24 Hr Interval Summary Free Text/Dictation No acute overnight events. Exam/Review of Systems Exam Vitals Vital Signs Date Temp Pulse Resp B/P (MAP) Pulse Ox O2 O2 Flow FiO2 Time Delivery Rate 02/01/19 74 15:37 02/01/19 97.8 22 144/72 97 Nasal 15:12 (96) Cannula 01/31/19 1.0 08:00 01/29/19 30 08:29 Intake and Output 01/31/19 01/31/19 02/01/19 1515:00 23:00 07:00 IntakeIntake Total 770 ml 300 ml 120 ml OutputOutput Total 530 ml 1100 ml 700 ml BalanceBalance 240 ml -800 ml -580 ml Exam General: Elderly man lying in bed sleeping comfortably. HEENT: Atraumatic, normocephalic. The pupils are equal, round and reactive. Neck: Supple with full range of motion. No rigidity or meningismus, right IJ central line Chest: Nontender Lungs: Coarse breath sounds bilaterally Heart: Normal S1-S2, Regular rhythm and rate. Abdomen: Soft , nontender, nondistended , bowel sounds are present. No guarding no rebound tenderness , No masses or organomegaly. No costovertebral temporal angle mass Extremities: Normal to inspection, no edema no cyanosis Neurologic: Awake and alert Results Results 24hrs Laboratory Tests Test 01/31/19 17:28 01/31/19 20:42 02/01/19 02:15 02/01/19 05:37 Bedside Glucose 159 243 H 138 White Blood Count 9.2 Red Blood Count 3.37 L Hemoglobin 9.9 L Hematocrit 29.3 L Mean Corpuscular 86.9 Volume Mean Corpuscular 29.4 Hemoglobin Mean Corpuscular 33.8 Hemoglobin Concent Red Cell 13.2 Distribution Width Platelet Count 310 Mean Platelet Volume 9.0 Immature 0.700 H Granulocytes % Neutrophils % 66.4 Lymphocytes % 22.5 Monocytes % 8.0 Eosinophils % 2.1 Basophils % 0.3 Nucleated Red Blood 0.0 Cells % Immature 0.060 H Granulocytes # Neutrophils # 6.1 Lymphocytes # 2.1 Monocytes # 0.7 Eosinophils # 0.2 Basophils # 0.0 Nucleated Red Blood 0.0 Cells # Sodium Level 140 Potassium Level 3.4 L Chloride Level 102 Carbon Dioxide Level 26 Anion Gap 12 Blood Urea Nitrogen 9 Creatinine 0.73 Est Glomerular Filtrat Rate mL/min Glucose Level 148 Calcium Level 8.6 Total Bilirubin 0.3 Direct Bilirubin 0.00 Indirect Bilirubin 0.3 Aspartate Amino 27 Transf (AST/SGOT) Alanine 22 Aminotransferase (AL T/SGPT) Alkaline Phosphatase 53 Total Protein 6.6 Albumin 3.2 L Globulin 3.40 H Albumin/Globulin 0.94 Ratio Test 02/01/19 08:06 02/01/19 11:55 Bedside Glucose 155 174 Medications Medication Current Medications Aztreonam 50 ml @ 100 mls/hr Q12 IVPB Last administered on 02/01/19at 10:25; Admin Dose 100 MLS/HR; Start 01/28/19 at 21:00 Albuterol (Ventolin Hfa) 4 puff Q2H RESP THERAPY PRN INH SHORTNESS OF BREATH; Start 01/28/19 at 20:00 Ipratropium [place] (Atrovent Hfa) 4 puff Q2H RESP THERAPY PRN INH SHORTNESS OF BREATH; Start 01/28/19 at 20:00 Acetaminophen (Tylenol Liquid) 650 mg Q6H PRN PO PAIN LEVEL 1-3 OR FEVER Last administered on 01/31/19at 20:40; Admin Dose 650 MG; Start 01/28/19 at 20:00 Enoxaparin Sodium (Lovenox) 70 mg Q12 SC Last administered on 02/01/19 08:21; Admin Dose 70 MG; Start 01/28/19 at 23:30 Sodium Chloride 1,000 ml @ 80 mls/hr [id number] IV Last administered on 02/01/19 06:09; Admin Dose 80 MLS/HR; Start 01/29/19 at 04:00 Dutasteride (Avodart) 0.5 mg QAM PO Last administered on 02/01/19 08:08; Admin Dose 0.5 MG; Start 01/29/19 at 09:00 Miscellaneous Information 1 ea NOTE XX ; Start 01/29/19 at 07:00 Glucose (Glutose) 15 gm Q15M PRN PO DECREASED GLUCOSE; Start 01/29/19 at 07:00 Glucose (Glutose) 22.5 gm Q15M PRN PO DECREASED GLUCOSE; Start 01/29/19 at 07:00 Dextrose (D50w Syringe) 25 ml Q15M PRN IV DECREASED GLUCOSE; Start 01/29/19 at 07:00 Dextrose (D50w Syringe) 50 ml Q15M PRN IV DECREASED GLUCOSE; Start 01/29/19 at 07:00 Glucagon (Glucagen) 1 mg Q15M PRN IM DECREASED GLUCOSE; Start 01/29/19 at 07:00 Glucose (Glutose) 15 gm Q15M PRN BUCCAL DECREASED GLUCOSE; Start 01/29/19 at 07:00 Atorvastatin Calcium (Lipitor) 40 mg HS PO Last administered on 01/31/19at 20: 40; Admin Dose 40 MG; Start 01/29/19 at 21:00 Famotidine (Pepcid) 20 mg BID PO Last administered on 02/01/19at 08:08; Admin Dose 20 MG; Start 01/30/19 at 21:00 Nitroglycerin (Nitroglycerin (Sl Tab) 0.4 Mg) 1 tab Q5M PRN SL ANGINA; Start 01/30/19 at 17:00 Metoprolol Tartrate (Lopressor) 25 mg BID PO Last administered on 02/01/19at 08:09; Admin Dose 25 MG; Start 01/31/19 at 21:00 Aspirin (Aspirin) 81 mg DAILY PO Last administered on 02/01/19 08:09; Admin Dose 81 MG; Start 02/01/19 at 09:00 Fluconazole (Diflucan) 100 mg DAILY PO Last administered on 02/01/19at 08:09; Admin Dose 100 MG; Start 01/31/19 at 13:30 Diagnostic Test (Pha) (Accu-Chek) 1 ea 02 XX Last administered on 02/01/19at 02:19; Admin Dose 1 EA; Start 02/01/19 at 02:00 Insulin Aspart (Novolog Insulin Pen) NOVOLOG *MILD* ALGORITHM WITH MEALS BEDTIME SC Last administered on 02/01/19at 11:57; Admin Dose 1 UNIT; Start 01/31/19 at 17:55 DALTON VUONG MD Feb 01, 2019 16:04
[2019-02-01] MEDS: ATORVASTATIN 40 MG TAB PO SCH (20:34)
[2019-02-02] VITALS (15 sets, daily range): BP systolic 122–171; BP diastolic 60–81; PULSE 43–83; RESP 17–20
[2019-02-02] MEDS: ACCU-CHEK XX SCH (02:04)
[2019-02-02] MEDS: SOD CHLORIDE 0.9% 1,000 ML IV SCH ×2 (07:41→20:30)
[2019-02-02] MEDS: FLUCONAZOLE 100 MG TAB PO SCH (08:03)
[2019-02-02] MEDS: ASPIRIN 81 MG TAB PO SCH (08:03)
[2019-02-02] MEDS: DUTASTERIDE 0.5 MG CAP PO SCH (08:03)
[2019-02-02] MEDS: METOPROLOL 25 MG TAB PO SCH ×2 (08:03→21:24)
[2019-02-02] MEDS: FAMOTIDINE 20 MG TAB PO SCH ×2 (08:03→21:24)
[2019-02-02] MEDS: AZTREONAM 1 GM/NS (PMX) 50 ML IVPB SCH ×2 (08:03→21:24)
[2019-02-02] MEDS: BALSAM PERU/CASTOR OIL 60 GM TUBE TOP SCH ×2 (08:04→21:35)
[2019-02-02] MEDS: INSULIN ASPART [NOVOLOG] 3 ML PEN SC SCH ×4 (08:11→21:21)
[2019-02-02] MEDS: ENOXAPARIN 80 MG/0.8 ML SYG SC SCH ×2 (08:12→21:31)
[2019-02-02] MEDS ORDERED: BARIUM SULFATE 135 ML (E-Z HD) PO ONE (11:08)
--- NOTE | 2019-02-02 11:29 | CONS ---
Assessment/Plan Assessment/Plan Assessment/Plan (Daily) Assessment: Assessment: Septic shock, improving Respiratory failure status post extubation Elevated troponin, likely type II myocardial infarction Cardiomyopathy with left ventricular ejection fraction 45% echocardiogram October 2018 Paroxysmal atrial fibrillation, currently sinus rhythm Parkinson's disease Diabetes Anemia Plan: medical mgt no change in cardiac regimen Consultation Date/Type/Reason Admit Date/Time Jan 28, 2019 at 19:41 Initial Consult Date 01/29/19 Type of Consult Cardiology Date/Time of Note DATE: 02/02/19 TIME: 11:27 24 HR Interval Summary Free Text/Dictation no chest pain, no sob Detailed Summary Respiratory: no complaints Cardiovascular: no complaints Gastrointestinal: no complaints Musculoskeletal: no complaints Skin: no complaints Neurologic: no complaints Exam/Review of Systems Vital Signs Vitals Vital Signs Date Temp Pulse Resp B/P (MAP) Pulse Ox O2 O2 Flow FiO2 Time Delivery Rate 02/02/19 139/63 10:00 (88) 02/02/19 69 08:01 02/02/19 98.7 18 95 Room Air 07:23 01/31/19 1.0 08:00 01/29/19 30 08:29 Intake and Output 02/01/19 02/01/19 02/02/19 1515:00 23:00 07:00 IntakeIntake Total 400 ml 120 ml OutputOutput Total 850 ml 700 ml BalanceBalance -450 ml -580 ml Exam Head: normocephalic, atraumatic Neck: jvd Respiratory: clear to auscultation Cardiovascular: regular rate and rhythm Gastrointestinal: soft Musculoskeletal: nl extremities to inspection Extremities: normal pulses Labs Result Diagram: 02/01/19 0537 02/01/19 0537 Results 24hrs Laboratory Tests Test 02/01/19 11:55 02/01/19 17:26 02/01/19 20:27 02/02/19 02:04 Bedside Glucose 174 147 209 144 Test 02/02/19 07:52 Bedside Glucose 154 Medications Medications Current Medications Aztreonam 50 ml @ 100 mls/hr Q12 IVPB Last administered on 02/02/19at 08:03; Admin Dose 100 MLS/HR; Start 01/28/19 at 21:00 Albuterol (Ventolin Hfa) 4 puff Q2H RESP THERAPY PRN INH SHORTNESS OF BREATH; Start 01/28/19 at 20:00 Ipratropium [place] (Atrovent Hfa) 4 puff Q2H RESP THERAPY PRN INH SHORTNESS OF BREATH; Start 01/28/19 at 20:00 Acetaminophen (Tylenol Liquid) 650 mg Q6H PRN PO PAIN LEVEL 1-3 OR FEVER Last administered on 01/31/19 20:40; Admin Dose 650 MG; Start 01/28/19 at 20:00 Enoxaparin Sodium (Lovenox) 70 mg Q12 SC Last administered on 02/02/19 08:12; Admin Dose 70 MG; Start 01/28/19 at 23:30 Sodium Chloride 1,000 ml @ 80 mls/hr [id number] IV Last administered on 02/02/19 07:41; Admin Dose 80 MLS/HR; Start 01/29/19 at 04:00 Dutasteride (Avodart) 0.5 mg QAM PO Last administered on 02/02/19 08:03; Admin Dose 0.5 MG; Start 01/29/19 at 09:00 Miscellaneous Information 1 ea NOTE XX ; Start 01/29/19 at 07:00 Glucose (Glutose) 15 gm Q15M PRN PO DECREASED GLUCOSE; Start 01/29/19 at 07:00 Glucose (Glutose) 22.5 gm Q15M PRN PO DECREASED GLUCOSE; Start 01/29/19 at 07:00 Dextrose (D50w Syringe) 25 ml Q15M PRN IV DECREASED GLUCOSE; Start 01/29/19 at 07:00 Dextrose (D50w Syringe) 50 ml Q15M PRN IV DECREASED GLUCOSE; Start 01/29/19 at 07:00 Glucagon (Glucagen) 1 mg Q15M PRN IM DECREASED GLUCOSE; Start 01/29/19 at 07:00 Glucose (Glutose) 15 gm Q15M PRN BUCCAL DECREASED GLUCOSE; Start 01/29/19 at 07:00 Atorvastatin Calcium (Lipitor) 40 mg HS PO Last administered on 02/01/19 20:34; Admin Dose 40 MG; Start 01/29/19 at 21:00 Famotidine (Pepcid) 20 mg BID PO Last administered on 02/02/19 08:03; Admin Dose 20 MG; Start 01/30/19 at 21:00 Nitroglycerin (Nitroglycerin (Sl Tab) 0.4 Mg) 1 tab Q5M PRN SL ANGINA; Start 01/30/19 at 17:00 Metoprolol Tartrate (Lopressor) 25 mg BID PO Last administered on 02/02/19 08:03; Admin Dose 25 MG; Start 01/31/19 at 21:00 Aspirin (Aspirin) 81 mg DAILY PO Last administered on 02/02/19 08:03; Admin Dose 81 MG; Start 02/01/19 at 09:00 Fluconazole (Diflucan) 100 mg DAILY PO Last administered on 02/02/19 08:03; Admin Dose 100 MG; Start 01/31/19 at 13:30 Diagnostic Test (Pha) (Accu-Chek) 1 ea 02 XX Last administered on 02/02/19 02:04; Admin Dose 1 EA; Start 02/01/19 at 02:00 Insulin Aspart (Novolog Insulin Pen) NOVOLOG *MILD* ALGORITHM WITH MEALS BEDTIME SC Last administered on 02/02/19 08:11; Admin Dose 1 UNIT; Start at 17:55 SERGIO YODER MD Feb 02, 2019 11:29
--- NOTE | 2019-02-02 12:20 | CONS ---
Consultation Date/Type/Reason Admit Date/Time Jan 28, 2019 at 19:41 Initial Consult Date SUBJECTIVE: Pt is awake, looks comfortable, afebrile. VS: stable T: 97.5 LABS: reviewed. PROCEDURE: Modified barium swallow with speech pathology CLINICAL INDICATION: Dysphasia IMPRESSION: Penetration and pooling; mild aspiration. Full report to follow. Microbiology: Urine and sputum culture growing Berenice albicans Allergies: NONE Antimicrobials: Aztreonam, Fluconazole Physical examination: GEN: This is a fragile chronically ill-appearing elderly man who is awake, in no distress. Head atraumatic normocephalic, sclera nonicteric. Neck is supple PULM: chest rise symmetrical, breath sounds diminished at bases. Heart: S1-S2. Abdomen soft, bowel sounds present. Extremities with trace edema. Assessment: Status post severe sepsis, present on admission Status post acute respiratory failure, extubated Pneumonia, possibly aspirated Urinary tract infection Acute possibly on chronic encephalopathy NSTEMI Atrial fibrillation Parkinson's dementia BPH with chronic Esposito catheter Plan: Patient is stable. Continue Azactam to complete 6 days. Pulm recommendations. Aspiration precautions. Possible PEG consideration Date/Time of Note DATE: 02/02/19 TIME: 12:16 Exam/Review of Systems Exam Vitals Vital Signs Date Temp Pulse Resp B/P (MAP) Pulse Ox O2 O2 Flow FiO2 Time Delivery Rate 02/02/19 97.5 58 18 157/71 98 Room Air 12:05 (99) 01/31/19 1.0 08:00 01/29/19 30 08:29 Intake and Output 02/01/19 02/01/19 02/02/19 1515:00 23:00 07:00 IntakeIntake Total 400 ml 120 ml OutputOutput Total 850 ml 700 ml BalanceBalance -450 ml -580 ml Results Result Diagram: 02/01/19 0537 02/01/19 0537 Results 24hrs Laboratory Tests Test 02/01/19 17:26 02/01/19 20:27 02/02/19 02:04 02/02/19 07:52 Bedside Glucose 147 209 144 154 Medications Medication Current Medications Aztreonam 50 ml @ 100 mls/hr Q12 IVPB Last administered on 02/02/19at 08:03; Admin Dose 100 MLS/HR; Start 01/28/19 at 21:00 Albuterol (Ventolin Hfa) 4 puff Q2H RESP THERAPY PRN INH SHORTNESS OF BREATH; Start 01/28/19 at 20:00 Ipratropium [place] (Atrovent Hfa) 4 puff Q2H RESP THERAPY PRN INH SHORTNESS OF BREATH; Start 01/28/19 at 20:00 Acetaminophen (Tylenol Liquid) 650 mg Q6H PRN PO PAIN LEVEL 1-3 OR FEVER Last administered on 01/31/19 20:40; Admin Dose 650 MG; Start 01/28/19 at 20:00 Enoxaparin Sodium (Lovenox) 70 mg Q12 SC Last administered on 02/02/19 08:12; Admin Dose 70 MG; Start 01/28/19 at 23:30 Sodium Chloride 1,000 ml @ 80 mls/hr [id number] IV Last administered on 02/02/19 07:41; Admin Dose 80 MLS/HR; Start 01/29/19 at 04:00 Dutasteride (Avodart) 0.5 mg QAM PO Last administered on 02/02/19 08:03; Admin Dose 0.5 MG; Start 01/29/19 at 09:00 Miscellaneous Information 1 ea NOTE XX ; Start 01/29/19 at 07:00 Glucose (Glutose) 15 gm Q15M PRN PO DECREASED GLUCOSE; Start 01/29/19 at 07:00 Glucose (Glutose) 22.5 gm Q15M PRN PO DECREASED GLUCOSE; Start 01/29/19 at 07:00 Dextrose (D50w Syringe) 25 ml Q15M PRN IV DECREASED GLUCOSE; Start 01/29/19 at 07:00 Dextrose (D50w Syringe) 50 ml Q15M PRN IV DECREASED GLUCOSE; Start 01/29/19 at 07:00 Glucagon (Glucagen) 1 mg Q15M PRN IM DECREASED GLUCOSE; Start 01/29/19 at 07:00 Glucose (Glutose) 15 gm Q15M PRN BUCCAL DECREASED GLUCOSE; Start 01/29/19 at 07:00 Atorvastatin Calcium (Lipitor) 40 mg HS PO Last administered on 02/01/19 20:34; Admin Dose 40 MG; Start 01/29/19 at 21:00 Famotidine (Pepcid) 20 mg BID PO Last administered on 02/02/19 08:03; Admin Dose 20 MG; Start 01/30/19 at 21:00 Nitroglycerin (Nitroglycerin (Sl Tab) 0.4 Mg) 1 tab Q5M PRN SL ANGINA; Start 01/30/19 at 17:00 Metoprolol Tartrate (Lopressor) 25 mg BID PO Last administered on 02/02/19 08:03; Admin Dose 25 MG; Start 01/31/19 at 21:00 Aspirin (Aspirin) 81 mg DAILY PO Last administered on 02/02/19 08:03; Admin Dose 81 MG; Start 02/01/19 at 09:00 Fluconazole (Diflucan) 100 mg DAILY PO Last administered on 02/02/19 08:03; Admin Dose 100 MG; Start 01/31/19 at 13:30 Diagnostic Test (Pha) (Accu-Chek) 1 ea 02 XX Last administered on 02/02/19 02:04; Admin Dose 1 EA; Start 02/01/19 at 02:00 Insulin Aspart (Novolog Insulin Pen) NOVOLOG *MILD* ALGORITHM WITH MEALS BEDTIME SC Last administered on 02/02/19 08:11; Admin Dose 1 UNIT; Start 01/31/19 at 17:55 IQRA MORGAN Feb 02, 2019 12:20
--- NOTE | 2019-02-02 12:32 | PN ---
Date/Time of Note Date/Time of Note DATE: 02/02/19 TIME: 12:21 Assessment/Plan VTE Prophylaxis Risk score (from Ns)>0 risk: 10 SCD applied (from Nsg): Yes Pharmacological prophylaxis: LMWH Lines/Catheters IV Catheter Type (from Nrsg): Central Line Central line still needed: Yes Urinary Cath still in place: Yes Reason Cath still needed: urinary retention Assessment/Plan Assessment/Plan 78 yo man with history of Parkinson's disease, paroxysmal atrial fibrillation, and benign prostatic hypertrophy presenting with acute respiratory failure #Dementia - At baseline according to family, patient is bedridden 90% of the day. Cannot do any ADLs. Does have moments of lucidity but mostly is confused. - Severe dysphagia to anything but purees as below. - Past few weeks worsening agitation pulling at lines; requiring restraints in the hospital and family asking if he can have restraints at home also. - Based on his comorbidities, chief being advanced dementia, I believe he has less than six months to live and I have discussed this with the family. - Alex wants home vs SNF hospice. She believes they need medicare part A which they are still waiting on. I'll ask case management about this. - Family is still discussing DNR/DNI status. Ideally they could reach consensus but Alex wants DNR and she is DPOA. #Dysphagia - Failed video swallow evaluation - Family has agreed they do not want PEG. #septic shock: Resolved - Possibly due to catheter related UTI or pneumonia. - Likely aspiration, patient had severe pneumonia - ID following, they are continuing aztreonam. #Candiduria - fluconazole per ID. #Elevated troponins - Now downtrending appropriately - Dr Rodriguez following. - Medical management, no cath. # Parkinson's disease: Resume home medications # Atrial fibrillation: Continue lovenox inpatient, discharge back on xarelto # BPH: Esposito catheter in place # DVT GI prophylaxis: Lovenox, Protonix Decisionmaker: Daughter Alex is DPOA, Syriac-speaking. [phone] Dispo: Home hospice Result Diagram: 02/01/19 0537 02/01/19 0537 Subjective 24 Hr Interval Summary Free Text/Dictation No acute overnight events. Failed video swallow today, extensive aspiration with everything except puree Had extensive discussion today with patient's family, mostly his daughter Alex who is DPOA. Alex is leaning towards DNR/DNI and hospice. Rest of family is resistant to this but will discuss further. All are in agreement that they do not want trach or PEG. Exam/Review of Systems Exam Vitals Vital Signs Date Temp Pulse Resp B/P (MAP) Pulse Ox O2 O2 Flow FiO2 Time Delivery Rate 02/02/19 97.5 58 18 157/71 98 Room Air 12:05 (99) 01/31/19 1.0 08:00 01/29/19 30 08:29 Intake and Output 02/01/19 02/01/19 02/02/19 1515:00 23:00 07:00 IntakeIntake Total 400 ml 120 ml OutputOutput Total 850 ml 700 ml BalanceBalance -450 ml -580 ml Exam General: Elderly man lying in bed sleeping comfortably. HEENT: Atraumatic, normocephalic. The pupils are equal, round and reactive. Neck: Supple with full range of motion. No rigidity or meningismus, right IJ central line Chest: Nontender Lungs: Coarse breath sounds bilaterally Heart: Normal S1-S2, Regular rhythm and rate. Abdomen: Soft , nontender, nondistended , bowel sounds are present. No guarding no rebound tenderness , No masses or organomegaly. No costovertebral temporal angle mass Extremities: Normal to inspection, no edema no cyanosis Neurologic: Awake and alert Results Results 24hrs Laboratory Tests Test 02/01/19 17:26 02/01/19 20:27 02/02/19 02:04 02/02/19 07:52 Bedside Glucose 147 209 144 154 Test 02/02/19 12:08 Bedside Glucose 310 H Medications Medication Current Medications Aztreonam 50 ml @ 100 mls/hr Q12 IVPB Last administered on 02/02/19at 08:03; Admin Dose 100 MLS/HR; Start 01/28/19 at 21:00 Albuterol (Ventolin Hfa) 4 puff Q2H RESP THERAPY PRN INH SHORTNESS OF BREATH; Start 01/28/19 at 20:00 Ipratropium [place] (Atrovent Hfa) 4 puff Q2H RESP THERAPY PRN INH SHORTNESS OF BREATH; Start 01/28/19 at 20:00 Acetaminophen (Tylenol Liquid) 650 mg Q6H PRN PO PAIN LEVEL 1-3 OR FEVER Last administered on 01/31/19 20:40; Admin Dose 650 MG; Start 01/28/19 at 20:00 Enoxaparin Sodium (Lovenox) 70 mg Q12 SC Last administered on 02/02/19 08:12; Admin Dose 70 MG; Start 01/28/19 at 23:30 Sodium Chloride 1,000 ml @ 80 mls/hr [id number] IV Last administered on 02/02/19 07:41; Admin Dose 80 MLS/HR; Start 01/29/19 at 04:00 Dutasteride (Avodart) 0.5 mg QAM PO Last administered on 02/02/19 08:03; Admin Dose 0.5 MG; Start 01/29/19 at 09:00 Miscellaneous Information 1 ea NOTE XX ; Start 01/29/19 at 07:00 Glucose (Glutose) 15 gm Q15M PRN PO DECREASED GLUCOSE; Start 01/29/19 at 07:00 Glucose (Glutose) 22.5 gm Q15M PRN PO DECREASED GLUCOSE; Start 01/29/19 at 07:00 Dextrose (D50w Syringe) 25 ml Q15M PRN IV DECREASED GLUCOSE; Start 01/29/19 at 07:00 Dextrose (D50w Syringe) 50 ml Q15M PRN IV DECREASED GLUCOSE; Start 01/29/19 at 07:00 Glucagon (Glucagen) 1 mg Q15M PRN IM DECREASED GLUCOSE; Start 01/29/19 at 07:00 Glucose (Glutose) 15 gm Q15M PRN BUCCAL DECREASED GLUCOSE; Start 01/29/19 at 07:00 Atorvastatin Calcium (Lipitor) 40 mg HS PO Last administered on 02/01/19at 20:34; Admin Dose 40 MG; Start 01/29/19 at 21:00 Famotidine (Pepcid) 20 mg BID PO Last administered on 02/02/19 08:03; Admin Dose 20 MG; Start 01/30/19 at 21:00 Nitroglycerin (Nitroglycerin (Sl Tab) 0.4 Mg) 1 tab Q5M PRN SL ANGINA; Start 01/30/19 at 17:00 Metoprolol Tartrate (Lopressor) 25 mg BID PO Last administered on 02/02/19 08:03; Admin Dose 25 MG; Start 01/31/19 at 21:00 Aspirin (Aspirin) 81 mg DAILY PO Last administered on 02/02/19 08:03; Admin Dose 81 MG; Start 02/01/19 at 09:00 Fluconazole (Diflucan) 100 mg DAILY PO Last administered on 02/02/19 08:03; Admin Dose 100 MG; Start 01/31/19 at 13:30 Diagnostic Test (Pha) (Accu-Chek) 1 ea 02 XX Last administered on 02/02/19 02:04; Admin Dose 1 EA; Start 02/01/19 at 02:00 Insulin Aspart (Novolog Insulin Pen) NOVOLOG *MILD* ALGORITHM WITH MEALS BEDTIME SC Last administered on 02/02/19 12:16; Admin Dose 5 UNIT; Start 01/31/19 at 17:55 DALTON VUONG MD Feb 02, 2019 12:31
[2019-02-02] MEDS: ENTACAPONE 200 MG TAB PO SCH ×2 (14:24→21:24)
[2019-02-02] MEDS: PRAMIPEXOLE 0.125 MG TAB PO SCH (14:24)
[2019-02-02] MEDS: ATORVASTATIN 40 MG TAB PO SCH (21:23)
[2019-02-02] MEDS: TAMSULOSIN (SR) 0.4 MG CAP PO SCH (21:24)
[2019-02-03] VITALS: BP 164/72; PULSE 64; PULSE 68; RESP 18
[2019-02-03] MEDS: ACCU-CHEK XX SCH (02:00)
[2019-02-03 03:40] VITALS: BP 135/66; PULSE 72; RESP 20
[2019-02-03 04:28] VITALS: BP 155/69; PULSE 74; RESP 16
[2019-02-03] MEDS: SOD CHLORIDE 0.9% 1,000 ML IV SCH ×3 (06:42→21:30)
[2019-02-03] MEDS: INSULIN ASPART [NOVOLOG] 3 ML PEN SC SCH ×4 (08:00→22:58)
[2019-02-03 08:37] VITALS: BP 132/75; PULSE 80; RESP 18
[2019-02-03] MEDS ORDERED: PRAMIPEXOLE 0.125 MG TAB PO SCH (09:00)
[2019-02-03] MEDS: AZTREONAM 1 GM/NS (PMX) 50 ML IVPB SCH ×2 (09:54→21:00)
[2019-02-03] MEDS: BALSAM PERU/CASTOR OIL 60 GM TUBE TOP SCH ×2 (09:55→21:00)
[2019-02-03] MEDS: ENOXAPARIN 80 MG/0.8 ML SYG SC SCH ×2 (10:02→22:59)
[2019-02-03] MEDS ORDERED: MAGNESIUM SULFATE 2 GM/50 ML 50 ML IVPB ONE (10:30)
[2019-02-03] MEDS: FAMOTIDINE 20 MG TAB PO SCH ×2 (11:40→22:59)
[2019-02-03] MEDS: DUTASTERIDE 0.5 MG CAP PO SCH (11:40)
[2019-02-03] MEDS: FLUCONAZOLE 100 MG TAB PO SCH (11:40)
[2019-02-03] MEDS: METOPROLOL 25 MG TAB PO SCH ×2 (11:40→23:00)
[2019-02-03] MEDS: ENTACAPONE 200 MG TAB PO SCH ×3 (11:41→22:59)
[2019-02-03] MEDS: PRAMIPEXOLE 0.125 MG TAB PO SCH (11:41)
[2019-02-03] MEDS: ASPIRIN 81 MG TAB PO SCH (11:45)
--- NOTE | 2019-02-03 13:33 | PN ---
Date/Time of Note Date/Time of Note DATE: 02/03/19 TIME: 13:31 Assessment/Plan VTE Prophylaxis Risk score (from Nsg)>0 risk: 7 SCD applied (from Nsg): Yes Pharmacological prophylaxis: LMWH Lines/Catheters IV Catheter Type (from Nrsg): Central Line Central line still needed: Yes Urinary Cath still in place: Yes Reason Cath still needed: urinary retention Assessment/Plan Assessment/Plan 78 yo man with history of Parkinson's disease, paroxysmal atrial fibrillation, and benign prostatic hypertrophy presenting with acute respiratory failure #Dementia - At baseline according to family, patient is bedridden 90% of the day. Cannot do any ADLs. Does have moments of lucidity but mostly is confused. - Severe dysphagia to anything but purees as below. - Past few weeks worsening agitation pulling at lines; requiring restraints in the hospital and family asking if he can have restraints at home also. - Based on his comorbidities, chief being advanced dementia, I believe he has less than six months to live and I have discussed this with the family. - Alex wants home vs SNF hospice. She believes they need medicare part A which they are still waiting on. I'll ask case management about this. - Family is still discussing DNR/DNI status. Ideally they could reach consensus but Alex wants DNR and she is DPOA. #Dysphagia - Failed video swallow evaluation - Family has agreed they do not want PEG. #septic shock: Resolved - Possibly due to catheter related UTI or pneumonia. - Likely aspiration, patient had severe pneumonia - ID following, they are continuing aztreonam. #Candiduria - fluconazole per ID. #Elevated troponins - Now downtrending appropriately - Dr Rodriguez following. - Medical management, no cath. # Parkinson's disease: Resume home medications # Atrial fibrillation: Continue lovenox inpatient, discharge back on xarelto # BPH: Esposito catheter in place, continue at home. # DVT GI prophylaxis: Lovenox, Protonix Decisionmaker: Daughter Alex is DPOA, Greenlandic-speaking. [phone] Dispo: Home hospice Result Diagram: 02/03/19 0647 02/03/19 0647 Subjective 24 Hr Interval Summary Free Text/Dictation Patient sitting up in bed. Well appearing, not requiring restraints. Exam/Review of Systems Exam Vitals Vital Signs Date Temp Pulse Resp B/P (MAP) Pulse Ox O2 O2 Flow FiO2 Time Delivery Rate 02/03/19 98.7 80 18 132/75 98 Room Air 08:37 (94) 01/31/19 1.0 08:00 Intake and Output 02/02/19 02/02/19 02/03/19 1515:00 23:00 07:00 IntakeIntake Total 50 ml 1450 ml OutputOutput Total 1300 ml 200 ml BalanceBalance 50 ml 150 ml -200 ml Exam General: Elderly man lying in bed awake. HEENT: Atraumatic, normocephalic. The pupils are equal, round and reactive. Neck: Supple with full range of motion. No rigidity or meningismus, right IJ central line Chest: Nontender Lungs: Coarse breath sounds bilaterally Heart: Normal S1-S2, Regular rhythm and rate. Abdomen: Soft , nontender, nondistended , bowel sounds are present. No guarding no rebound tenderness , No masses or organomegaly. No costovertebral temporal angle mass Extremities: Normal to inspection, no edema no cyanosis Neurologic: Awake and alert : Esposito in place draining clear yellow urine. Results Results 24hrs Laboratory Tests Test 02/02/19 17:21 02/02/19 21:09 02/03/19 01:54 02/03/19 06:47 Bedside Glucose 199 285 H 191 White Blood Count 8.2 Red Blood Count 3.30 L Hemoglobin 9.7 L Hematocrit 28.4 L Mean Corpuscular 86.1 Volume Mean Corpuscular 29.4 Hemoglobin Mean Corpuscular 34.2 Hemoglobin Concent Red Cell 13.2 Distribution Width Platelet Count 305 Mean Platelet Volume 8.9 Immature 0.500 H Granulocytes % Neutrophils % 58.5 Lymphocytes % 27.4 Monocytes % 9.9 Eosinophils % 3.3 Basophils % 0.4 Nucleated Red Blood 0.0 Cells % Immature 0.040 H Granulocytes # Neutrophils # 4.8 Lymphocytes # 2.2 Monocytes # 0.8 Eosinophils # 0.3 Basophils # 0.0 Nucleated Red Blood 0.0 Cells # Sodium Level 138 Potassium Level 3.5 Chloride Level 106 Carbon Dioxide Level 24 Anion Gap 8 Blood Urea Nitrogen 5 L Creatinine 0.59 L Est Glomerular Filtrat Rate mL/min Glucose Level 171 Calcium Level 9.0 Phosphorus Level 3.5 Magnesium Level 1.6 L Test 02/03/19 08:31 02/03/19 11:51 Bedside Glucose 181 245 H Medications Medication Current Medications Aztreonam 50 ml @ 100 mls/hr Q12 IVPB Last administered on 02/03/19 09:54; Admin Dose 100 MLS/HR; Start 01/28/19 at 21:00 Albuterol (Ventolin Hfa) 4 puff Q2H RESP THERAPY PRN INH SHORTNESS OF BREATH; Start 01/28/19 at 20:00 Ipratropium [place] (Atrovent Hfa) 4 puff Q2H RESP THERAPY PRN INH SHORTNESS OF BREATH; Start 01/28/19 at 20:00 Acetaminophen (Tylenol Liquid) 650 mg Q6H PRN PO PAIN LEVEL 1-3 OR FEVER Last administered on 01/31/19 20:40; Admin Dose 650 MG; Start 01/28/19 at 20:00 Enoxaparin Sodium (Lovenox) 70 mg Q12 SC Last administered on 02/03/19 10:02; Admin Dose 70 MG; Start 01/28/19 at 23:30 Sodium Chloride 1,000 ml @ 80 mls/hr [id number] IV Last administered on 02/03/19 06:42; Admin Dose 80 MLS/HR; Start 01/29/19 at 04:00 Dutasteride (Avodart) 0.5 mg QAM PO Last administered on 02/03/19 11:40; Admin Dose 0.5 MG; Start 01/29/19 at 09:00 Miscellaneous Information 1 ea NOTE XX ; Start 01/29/19 at 07:00 Glucose (Glutose) 15 gm Q15M PRN PO DECREASED GLUCOSE; Start 01/29/19 at 07:00 Glucose (Glutose) 22.5 gm Q15M PRN PO DECREASED GLUCOSE; Start 01/29/19 at 07:00 Dextrose (D50w Syringe) 25 ml Q15M PRN IV DECREASED GLUCOSE; Start 01/29/19 at 07:00 Dextrose (D50w Syringe) 50 ml Q15M PRN IV DECREASED GLUCOSE; Start 01/29/19 at 07:00 Glucagon (Glucagen) 1 mg Q15M PRN IM DECREASED GLUCOSE; Start 01/29/19 at 07:00 Glucose (Glutose) 15 gm Q15M PRN BUCCAL DECREASED GLUCOSE; Start 01/29/19 at 07:00 Atorvastatin Calcium (Lipitor) 40 mg HS PO Last administered on 02/02/19 21:23 ; Admin Dose 40 MG; Start 01/29/19 at 21:00 Famotidine (Pepcid) 20 mg BID PO Last administered on 02/03/19 11:40; Admin Dose 20 MG; Start 01/30/19 at 21:00 Nitroglycerin (Nitroglycerin (Sl Tab) 0.4 Mg) 1 tab Q5M PRN SL ANGINA; Start 01/30/19 at 17:00 Metoprolol Tartrate (Lopressor) 25 mg BID PO Last administered on 02/03/19 11:40; Admin Dose 25 MG; Start 01/31/19 at 21:00 Aspirin (Aspirin) 81 mg DAILY PO Last administered on 02/03/19 11:45; Admin Dose 81 MG; Start 02/01/19 at 09:00 Fluconazole (Diflucan) 100 mg DAILY PO Last administered on 02/03/19 11:40; Admin Dose 100 MG; Start 01/31/19 at 13:30 Diagnostic Test (Pha) (Accu-Chek) 1 ea 02 XX Last administered on 02/02/19 02:04; Admin Dose 1 EA; Start 02/01/19 at 02:00 Insulin Aspart (Novolog Insulin Pen) NOVOLOG *MILD* ALGORITHM WITH MEALS BEDTIME SC Last administered on 02/03/19 11:52; Admin Dose 3 UNIT; Start 01/31/19 at 17:55 Entacapone (Comtan) 200 mg TID PO Last administered on 02/03/19 11:41; Admin Dose 200 MG; Start 02/02/19 at 13:00 Tamsulosin HCl (Flomax) 0.4 mg HS PO Last administered on 02/02/19 21:24; A dmin Dose 0.4 MG; Start 02/02/19 at 21:00 Pramipexole (Mirapex) 0.125 mg DAILY PO Last administered on 02/03/19 11:41; Admin Dose 0.125 MG; Start 02/02/19 at 13:30 DALTON VUONG MD Feb 03, 2019 13:33
--- NOTE | 2019-02-03 13:40 | CONS ---
Consultation Date/Type/Reason Admit Date/Time Jan 28, 2019 at 19:41 Initial Consult Date SUBJECTIVE: Pt is awake, looks comfortable, afebrile. VS: stable T: 98.7 LABS: reviewed. WBC-8.2 PROCEDURE: Modified barium swallow with speech pathology CLINICAL INDICATION: Dysphasia IMPRESSION: Penetration and pooling; mild aspiration. Full report to follow. Microbiology: Urine and sputum culture growing Berenice albicans Allergies: NONE Antimicrobials: Aztreonam, Fluconazole Physical examination: GEN: This is a fragile chronically ill-appearing elderly man who is awake, in no distress. Head atraumatic normocephalic, sclera nonicteric. Neck is supple PULM: chest rise symmetrical, breath sounds diminished at bases. Heart: S1-S2. Abdomen soft, bowel sounds present. Extremities with trace edema. Assessment: Status post severe sepsis, present on admission Status post acute respiratory failure, extubated Pneumonia, possibly aspirated Urinary tract infection Acute possibly on chronic encephalopathy NSTEMI Atrial fibrillation Parkinson's dementia BPH with chronic Esposito catheter Plan: Patient is stable. Continue Azactam to complete 6 days. Pulm recommendations. Aspiration precautions. Possible PEG consideration Date/Time of Note DATE: 02/03/19 TIME: 13:39 Exam/Review of Systems Exam Vitals Vital Signs Date Temp Pulse Resp B/P (MAP) Pulse Ox O2 O2 Flow FiO2 Time Delivery Rate 02/03/19 98.7 80 18 132/75 98 Room Air 08:37 (94) 01/31/19 1.0 08:00 Intake and Output 02/02/19 02/02/19 02/03/19 1515:00 23:00 07:00 IntakeIntake Total 50 ml 1450 ml OutputOutput Total 1300 ml 200 ml BalanceBalance 50 ml 150 ml -200 ml Results Result Diagram: 02/03/19 0647 02/03/19 0647 Results 24hrs Laboratory Tests Test 02/02/19 17:21 02/02/19 21:09 02/03/19 01:54 02/03/19 06:47 Bedside Glucose 199 285 H 191 White Blood Count 8.2 Red Blood Count 3.30 L Hemoglobin 9.7 L Hematocrit 28.4 L Mean Corpuscular 86.1 Volume Mean Corpuscular 29.4 Hemoglobin Mean Corpuscular 34.2 Hemoglobin Concent Red Cell 13.2 Distribution Width Platelet Count 305 Mean Platelet Volume 8.9 Immature 0.500 H Granulocytes % Neutrophils % 58.5 Lymphocytes % 27.4 Monocytes % 9.9 Eosinophils % 3.3 Basophils % 0.4 Nucleated Red Blood 0.0 Cells % Immature 0.040 H Granulocytes # Neutrophils # 4.8 Lymphocytes # 2.2 Monocytes # 0.8 Eosinophils # 0.3 Basophils # 0.0 Nucleated Red Blood 0.0 Cells # Sodium Level 138 Potassium Level 3.5 Chloride Level 106 Carbon Dioxide Level 24 Anion Gap 8 Blood Urea Nitrogen 5 L Creatinine 0.59 L Est Glomerular Filtrat Rate mL/min Glucose Level 171 Calcium Level 9.0 Phosphorus Level 3.5 Magnesium Level 1.6 L Test 02/03/19 08:31 02/03/19 11:51 Bedside Glucose 181 245 H Medications Medication Current Medications Aztreonam 50 ml @ 100 mls/hr Q12 IVPB Last administered on 02/03/19 09:54; Admin Dose 100 MLS/HR; Start 01/28/19 at 21:00 Albuterol (Ventolin Hfa) 4 puff Q2H RESP THERAPY PRN INH SHORTNESS OF BREATH; Start 01/28/19 at 20:00 Ipratropium [place] (Atrovent Hfa) 4 puff Q2H RESP THERAPY PRN INH SHORTNESS OF BREATH; Start 01/28/19 at 20:00 Acetaminophen (Tylenol Liquid) 650 mg Q6H PRN PO PAIN LEVEL 1-3 OR FEVER Last administered on 01/31/19at 20:40; Admin Dose 650 MG; Start 01/28/19 at 20:00 Enoxaparin Sodium (Lovenox) 70 mg Q12 SC Last administered on 02/03/19at 10:02; Admin Dose 70 MG; Start 01/28/19 at 23:30 Sodium Chloride 1,000 ml @ 80 mls/hr [id number] IV Last administered on 02/03/19 06:42; Admin Dose 80 MLS/HR; Start 01/29/19 at 04:00 Dutasteride (Avodart) 0.5 mg QAM PO Last administered on 02/03/19at 11:40; Admin Dose 0.5 MG; Start 01/29/19 at 09:00 Miscellaneous Information 1 ea NOTE XX ; Start 01/29/19 at 07:00 Glucose (Glutose) 15 gm Q15M PRN PO DECREASED GLUCOSE; Start 01/29/19 at 07:00 Glucose (Glutose) 22.5 gm Q15M PRN PO DECREASED GLUCOSE; Start 01/29/19 at 07:00 Dextrose (D50w Syringe) 25 ml Q15M PRN IV DECREASED GLUCOSE; Start 01/29/19 at 07:00 Dextrose (D50w Syringe) 50 ml Q15M PRN IV DECREASED GLUCOSE; Start 01/29/19 at 07:00 Glucagon (Glucagen) 1 mg Q15M PRN IM DECREASED GLUCOSE; Start 01/29/19 at 07:00 Glucose (Glutose) 15 gm Q15M PRN BUCCAL DECREASED GLUCOSE; Start 01/29/19 at 07:00 Atorvastatin Calcium (Lipitor) 40 mg HS PO Last administered on 02/02/19 21:23; Admin Dose 40 MG; Start 01/29/19 at 21:00 Famotidine (Pepcid) 20 mg BID PO Last administered on 02/03/19 11:40; Admin Dose 20 MG; Start 01/30/19 at 21:00 Nitroglycerin (Nitroglycerin (Sl Tab) 0.4 Mg) 1 tab Q5M PRN SL ANGINA; Start 01/30/19 at 17:00 Metoprolol Tartrate (Lopressor) 25 mg BID PO Last administered on 02/03/19 11:40; Admin Dose 25 MG; Start 01/31/19 at 21:00 Aspirin (Aspirin) 81 mg DAILY PO Last administered on 02/03/19 11:45; Admin Dose 81 MG; Start 02/01/19 at 09:00 Fluconazole (Diflucan) 100 mg DAILY PO Last administered on 02/03/19 11:40; Admin Dose 100 MG; Start 01/31/19 at 13:30 Diagnostic Test (Pha) (Accu-Chek) 1 ea 02 XX Last administered on 02/02/19at 02:04; Admin Dose 1 EA; Start 02/01/19 at 02:00 Insulin Aspart (Novolog Insulin Pen) NOVOLOG *MILD* ALGORITHM WITH MEALS BEDTIME SC Last administered on 02/03/19 11:52; Admin Dose 3 UNIT; Start 01/31/19 at 17:55 Entacapone (Comtan) 200 mg TID PO Last administered on 02/03/19 11:41; Admin Dose 200 MG; Start 02/02/19 at 13:00 Tamsulosin HCl (Flomax) 0.4 mg HS PO Last administered on 02/02/19at 21:24; Admin Dose 0.4 MG; Start 02/02/19 at 21:00 Pramipexole (Mirapex) 0.125 mg DAILY PO Last administered on 02/03/19at 11:41; Admin Dose 0.125 MG; Start 02/02/19 at 13:30 IQRA MORGAN Feb 03, 2019 13:40
[2019-02-03 14:15] VITALS: BP 132/63; PULSE 65; RESP 17
--- NOTE | 2019-02-03 16:41 | CONS ---
Assessment/Plan Assessment/Plan Hospital Course (Demo Recall) Septic shock, improving Respiratory failure status post extubation Elevated troponin, likely type II myocardial infarction-conservative management Cardiomyopathy with left ventricular ejection fraction 45% echocardiogram October 2018 Paroxysmal atrial fibrillation, currently sinus rhythm Parkinson's Diabetes Anemia -Continue beta-blockers heart rate and blood pressure permits -On statin therapy -Aspirin as tolerated -Patient on plan for any procedures and if no contraindication, consider switching anticoagulation to p.o., patient was on Xarelto as an outpatient Consultation Date/Type/Reason Admit Date/Time Jan 28, 2019 at 19:41 Initial Consult Date 01/29/19 Type of Consult Cardiology Date/Time of Note DATE: 02/03/19 TIME: 16:39 24 HR Interval Summary Free Text/Dictation Denies shortness of breath, chest pain Exam/Review of Systems Vital Signs Vitals Vital Signs Date Temp Pulse Resp B/P (MAP) Pulse Ox O2 O2 Flow FiO2 Time Delivery Rate 02/03/19 98.2 65 17 132/63 97 Room Air 14:15 (86) 01/31/19 1.0 08:00 Intake and Output 02/02/19 02/02/19 02/03/19 1515:00 23:00 07:00 IntakeIntake Total 50 ml 1450 ml OutputOutput Total 1300 ml 200 ml BalanceBalance 50 ml 150 ml -200 ml Exam Constitutional: alert (Follows commands, no apparent distress) Head: normocephalic Respiratory: other (Coarse breath sounds bilaterally, no wheezing) Cardiovascular: regular rate and rhythm (S1-S2 heard) Gastrointestinal: soft, non-tender, bowel sounds Extremities: edema (Trace) Labs Result Diagram: 02/03/19 0647 02/03/19 0647 Results 24hrs Laboratory Tests Test 02/02/19 17:21 02/02/19 21:09 02/03/19 01:54 02/03/19 06:47 Bedside Glucose 199 285 H 191 White Blood Count 8.2 Red Blood Count 3.30 L Hemoglobin 9.7 L Hematocrit 28.4 L Mean Corpuscular 86.1 Volume Mean Corpuscular 29.4 Hemoglobin Mean Corpuscular 34.2 Hemoglobin Concent Red Cell 13.2 Distribution Width Platelet Count 305 Mean Platelet Volume 8.9 Immature 0.500 H Granulocytes % Neutrophils % 58.5 Lymphocytes % 27.4 Monocytes % 9.9 Eosinophils % 3.3 Basophils % 0.4 Nucleated Red Blood 0.0 Cells % Immature 0.040 H Granulocytes # Neutrophils # 4.8 Lymphocytes # 2.2 Monocytes # 0.8 Eosinophils # 0.3 Basophils # 0.0 Nucleated Red Blood 0.0 Cells # Sodium Level 138 Potassium Level 3.5 Chloride Level 106 Carbon Dioxide Level 24 Anion Gap 8 Blood Urea Nitrogen 5 L Creatinine 0.59 L Est Glomerular Filtrat Rate mL/min Glucose Level 171 Calcium Level 9.0 Phosphorus Level 3.5 Magnesium Level 1.6 L Test 02/03/19 08:31 02/03/19 11:51 Bedside Glucose 181 245 H Medications Medications Current Medications Aztreonam 50 ml @ 100 mls/hr Q12 IVPB Last administered on 02/03/19 09:54; Admin Dose 100 MLS/HR; Start 01/28/19 at 21:00; Stop 02/03/19 at 23:30 Albuterol (Ventolin Hfa) 4 puff Q2H RESP THERAPY PRN INH SHORTNESS OF BREATH; Start 01/28/19 at 20:00 Ipratropium [place] (Atrovent Hfa) 4 puff Q2H RESP THERAPY PRN INH SHORTNESS OF BREATH; Start 01/28/19 at 20:00 Acetaminophen (Tylenol Liquid) 650 mg Q6H PRN PO PAIN LEVEL 1-3 OR FEVER Last administered on 01/31/19at 20:40; Admin Dose 650 MG; Start 01/28/19 at 20:00 Enoxaparin Sodium (Lovenox) 70 mg Q12 SC Last administered on 02/03/19 10:02; Admin Dose 70 MG; Start 01/28/19 at 23:30 Sodium Chloride 1,000 ml @ 80 mls/hr [id number] IV Last administered on 02/03/19 06:42; Admin Dose 80 MLS/HR; Start 01/29/19 at 04:00 Dutasteride (Avodart) 0.5 mg QAM PO Last administered on 02/03/19at 11:40; Admin Dose 0.5 MG; Start 01/29/19 at 09:00 Miscellaneous Information 1 ea NOTE XX ; Start 01/29/19 at 07:00 Glucose (Glutose) 15 gm Q15M PRN PO DECREASED GLUCOSE; Start 01/29/19 at 07:00 Glucose (Glutose) 22.5 gm Q15M PRN PO DECREASED GLUCOSE; Start 01/29/19 at 07:00 Dextrose (D50w Syringe) 25 ml Q15M PRN IV DECREASED GLUCOSE; Start 01/29/19 at 07:00 Dextrose (D50w Syringe) 50 ml Q15M PRN IV DECREASED GLUCOSE; Start 01/29/19 at 07:00 Glucagon (Glucagen) 1 mg Q15M PRN IM DECREASED GLUCOSE; Start 01/29/19 at 07:00 Glucose (Glutose) 15 gm Q15M PRN BUCCAL DECREASED GLUCOSE; Start 01/29/19 at 07:00 Atorvastatin Calcium (Lipitor) 40 mg HS PO Last administered on 02/02/19 21:23; Admin Dose 40 MG; Start 01/29/19 at 21:00 Famotidine (Pepcid) 20 mg BID PO Last administered on 02/03/19 11:40; Admin Dose 20 MG; Start 01/30/19 at 21:00 Nitroglycerin (Nitroglycerin (Sl Tab) 0.4 Mg) 1 tab Q5M PRN SL ANGINA; Start 01/30/19 at 17:00 Metoprolol Tartrate (Lopressor) 25 mg BID PO Last administered on 02/03/19 11:40; Admin Dose 25 MG; Start 01/31/19 at 21:00 Aspirin (Aspirin) 81 mg DAILY PO Last administered on 02/03/19 11:45; Admin Dose 81 MG; Start 02/01/19 at 09:00 Fluconazole (Diflucan) 100 mg DAILY PO Last administered on 02/03/19 11:40; Admin Dose 100 MG; Start 01/31/19 at 13:30 Diagnostic Test (Pha) (Accu-Chek) 1 ea 02 XX Last administered on 02/02/19at 02:04; Admin Dose 1 EA; Start 02/01/19 at 02:00 Insulin Aspart (Novolog Insulin Pen) NOVOLOG *MILD* ALGORITHM WITH MEALS BEDTIME SC Last administered on 02/03/19 11:52; Admin Dose 3 UNIT; Start 01/31/19 at 17:55 Entacapone (Comtan) 200 mg TID PO Last administered on 02/03/19 14:29; Admin Dose 200 MG; Start 02/02/19 at 13:00 Tamsulosin HCl (Flomax) 0.4 mg HS PO Last administered on 02/02/19at 21:24; Admin Dose 0.4 MG; Start 02/02/19 at 21:00 Pramipexole (Mirapex) 0.125 mg DAILY PO Last administered on 02/03/19at 11:41; A dmin Dose 0.125 MG; Start 02/02/19 at 13:30 Royce Rodriguez DO Feb 03, 2019 16:41
[2019-02-03 20:00] VITALS: BP 142/65; PULSE 82; RESP 18
[2019-02-03] MEDS: ATORVASTATIN 40 MG TAB PO SCH (22:59)
[2019-02-03] MEDS: TAMSULOSIN (SR) 0.4 MG CAP PO SCH (22:59)
[2019-02-04] MEDS: BALSAM PERU/CASTOR OIL 60 GM TUBE TOP SCH ×2 (00:25→08:45)
[2019-02-04 02:00] VITALS: BP 141/66; PULSE 74; RESP 16
[2019-02-04] MEDS: ACCU-CHEK XX SCH (02:00)
[2019-02-04] MEDS: SOD CHLORIDE 0.9% 1,000 ML IV SCH (06:39)
[2019-02-04 08:02] VITALS: BP 152/63; PULSE 76; RESP 18
[2019-02-04] MEDS: INSULIN ASPART [NOVOLOG] 3 ML PEN SC SCH ×3 (08:41→17:40)
[2019-02-04] MEDS: ENOXAPARIN 80 MG/0.8 ML SYG SC SCH (08:42)
[2019-02-04] MEDS: ASPIRIN 81 MG TAB PO SCH (08:45)
[2019-02-04] MEDS: ENTACAPONE 200 MG TAB PO SCH ×2 (08:45→12:38)
[2019-02-04] MEDS: DUTASTERIDE 0.5 MG CAP PO SCH (08:45)
[2019-02-04] MEDS: FLUCONAZOLE 100 MG TAB PO SCH (08:45)
[2019-02-04] MEDS: FAMOTIDINE 20 MG TAB PO SCH (08:45)
[2019-02-04] MEDS: METOPROLOL 25 MG TAB PO SCH (08:47)
[2019-02-04] MEDS: PRAMIPEXOLE 0.125 MG TAB PO SCH (10:46)
--- NOTE | 2019-02-04 13:42 | CONS ---
Assessment/Plan Assessment/Plan Hospital Course (Demo Recall) No e, looks comfortable, no fevers Microbiology: Urine and sputum culture growing Berenice albicans Allergies: NONE Antimicrobials: Fluconazole #5 Physical examination: This is a fragile chronically ill-appearing elderly man who is awake, in no distress. Head atraumatic normocephalic, sclera nonicteric. Neck is supple, chest rise symmetrical, breath sounds diminished at bases. Heart: S1-S2. Abdomen soft, bowel sounds present. Extremities with trace edema. Assessment: Status post severe sepsis, present on admission Status post acute respiratory failure, extubated Pneumonia, possibly aspirated Urinary tract infection Acute possibly on chronic encephalopathy NSTEMI Atrial fibrillation Parkinson's dementia BPH with chronic Esposito catheter Plan: Remains stable, continue aspiration precautions, Diflucan for 2 more days Consultation Date/Type/Reason Admit Date/Time Jan 28, 2019 at 19:41 Initial Consult Date 01/29/19 Type of Consult id Date/Time of Note DATE: 02/04/19 TIME: 13:41 Exam/Review of Systems Exam Vitals Vital Signs Date Temp Pulse Resp B/P (MAP) Pulse Ox O2 O2 Flow FiO2 Time Delivery Rate 02/04/19 98.0 76 18 152/63 97 Room Air 08:02 (92) 01/31/19 1.0 08:00 Intake and Output 02/03/19 02/03/19 02/04/19 1515:00 23:00 07:00 IntakeIntake Total 100 ml 200 ml 1240 ml OutputOutput Total 800 ml BalanceBalance 100 ml -600 ml 1240 ml Results Result Diagram: 02/03/19 0647 02/03/19 0647 Results 24hrs Laboratory Tests Test 02/03/19 16:47 02/03/19 22:56 02/04/19 02:33 02/04/19 08:39 Bedside Glucose 283 H 230 H 212 213 Test 02/04/19 12:33 Bedside Glucose 205 Medications Medication Current Medications Albuterol (Ventolin Hfa) 4 puff Q2H RESP THERAPY PRN INH SHORTNESS OF BREATH; Start 01/28/19 at 20:00 Ipratropium [place] (Atrovent Hfa) 4 puff Q2H RESP THERAPY PRN INH SHORTNESS OF BREATH; Start 01/28/19 at 20:00 Acetaminophen (Tylenol Liquid) 650 mg Q6H PRN PO PAIN LEVEL 1-3 OR FEVER Last administered on 01/31/19 20:40; Admin Dose 650 MG; Start 01/28/19 at 20:00 Enoxaparin Sodium (Lovenox) 70 mg Q12 SC Last administered on 02/04/19 08:42; Admin Dose 70 MG; Start 01/28/19 at 23:30 Sodium Chloride 1,000 ml @ 80 mls/hr [id number] IV Last administered on 02/04/19 06:39; Admin Dose 80 MLS/HR; Start 01/29/19 at 04:00 Dutasteride (Avodart) 0.5 mg QAM PO Last administered on 02/04/19 08:45; Admin Dose 0.5 MG; Start 01/29/19 at 09:00 Miscellaneous Information 1 ea NOTE XX ; Start 01/29/19 at 07:00 Glucose (Glutose) 15 gm Q15M PRN PO DECREASED GLUCOSE; Start 01/29/19 at 07:00 Glucose (Glutose) 22.5 gm Q15M PRN PO DECREASED GLUCOSE; Start 01/29/19 at 07:00 Dextrose (D50w Syringe) 25 ml Q15M PRN IV DECREASED GLUCOSE; Start 01/29/19 at 07:00 Dextrose (D50w Syringe) 50 ml Q15M PRN IV DECREASED GLUCOSE; Start 01/29/19 at 07:00 Glucagon (Glucagen) 1 mg Q15M PRN IM DECREASED GLUCOSE; Start 01/29/19 at 07:00 Glucose (Glutose) 15 gm Q15M PRN BUCCAL DECREASED GLUCOSE; Start 01/29/19 at 07:00 Atorvastatin Calcium (Lipitor) 40 mg HS PO Last administered on 02/03/19at 22:59; Admin Dose 40 MG; Start 01/29/19 at 21:00 Famotidine (Pepcid) 20 mg BID PO Last administered on 02/04/19 08:45; Admin Dose 20 MG; Start 01/30/19 at 21:00 Nitroglycerin (Nitroglycerin (Sl Tab) 0.4 Mg) 1 tab Q5M PRN SL ANGINA; Start 01/30/19 at 17:00 Metoprolol Tartrate (Lopressor) 25 mg BID PO Last administered on 02/04/19 08:47; Admin Dose 25 MG; Start 01/31/19 at 21:00 Aspirin (Aspirin) 81 mg DAILY PO Last administered on 02/04/19 08:45; Admin Dose 81 MG; Start 02/01/19 at 09:00 Fluconazole (Diflucan) 100 mg DAILY PO Last administered on 02/04/19 08:45; Admin Dose 100 MG; Start 01/31/19 at 13:30 Diagnostic Test (Pha) (Accu-Chek) 1 ea 02 XX Last administered on 02/02/19 02:04; Admin Dose 1 EA; Start 02/01/19 at 02:00 Insulin Aspart (Novolog Insulin Pen) NOVOLOG *MILD* ALGORITHM WITH MEALS BEDTIME SC Last administered on 02/04/19 12:35; Admin Dose 2 UNIT; Start 01/31/19 at 17:55 Entacapone (Comtan) 200 mg TID PO Last administered on 02/04/19 12:38; Admin Dose 200 MG; Start 02/02/19 at 13:00 Tamsulosin HCl (Flomax) 0.4 mg HS PO Last administered on 02/03/19 22:59; Admin Dose 0.4 MG; Start 02/02/19 at 21:00 Pramipexole (Mirapex) 0.125 mg DAILY PO Last administered on 02/04/19 10:46; Admin Dose 0.125 MG; Start 02/02/19 at 13:30 KAVITHA WRIGHT NP Feb 04, 2019 13:42
[2019-02-04 14:15] VITALS: BP 126/60; PULSE 98; RESP 17
--- NOTE | 2019-02-04 16:15 | PDOCDIS ---
Discharge Instructions CONDITION [id number] Patient Condition: [id number] Stable HOME CARE INSTRUCTIONS: [id number] Diet Instructions: [id number] ACTIVITY: [id number] Activity Restrictions: [id number] Slowly Increase Activity Rest between Activity Avoid heavy lifting FOLLOW UP/APPOINTMENTS Follow-up Plan Please take your medications as prescribed, follow diet recommendations as recommended by speech therapy team here, see your doctor in the clinic in the next 1-2 weeks. ESSENCE WALLIS Feb 04, 2019 16:14
[2019-02-04] MEDS ORDERED: BALS60OI TOP (16:16)
[2019-02-04] MEDS ORDERED: ATOR40TA68 PO (16:16)
[2019-02-04] MEDS ORDERED: FLUC100T PO (16:16)
[2019-02-04] MEDS ORDERED: METO-448 PO (16:16)
--- NOTE | 2019-02-04 16:26 | DS ---
Date/Time of Note Date/Time of Note DATE: 02/04/19 TIME: 16:17 Discharge Summary Admission/Discharge Info Admit Date/Time Jan 28, 2019 at 19:41 Discharge Date/Time Discharge Diagnosis #Dementia- At baseline according to family, patient is bedridden 90% of the day. Cannot do any ADLs. Does have moments of lucidity but mostly is confused. #Dysphagia -now tolerating pured diet #septic shock: Resolved -secondary to Berenice UTI and Berenice respiratory tract infection #Candiduria- fluconazole per ID. #Elevated troponins -Per cardiology recommendations - Medical management, no cath. # Parkinson's disease # Atrial fibrillation- on xarelto # BPH: Esposito catheter in place, continue at home. Patient Condition: Stable Hx of Present Illness 78-year-old male, presenting to the ER because of acute shortness of breath for the last 2 days with cough. Patient was brought in from a [place] hospital. Apparently along the way patient did vomit 3 times and his oxygen did desaturate down to the 50s and 60s. When patient arrived in the emergency department he was noted to be in acute respiratory distress and patient was subsequently intubated and he did have a central line placed as well. He had a Esposito catheter that was replaced in the emergency department. Hospital Course Patient was admitted and seen by infectious disease, cardiology, and pulmonary teams during his hospital stay. He was also evaluated by speech therapy team and social services aide as well. Patient had septic shock early on admission, requiring pressor support. This was able to be weaned off and patient was diagnosed with source likely being secondary to Berenice UTI and Berenice pneumonia. Patient was placed on appropriate antifungal medication for that. He was also treated for elevated troponins by cardiology team -they determined this was likely type II myocardial infarction-and recommended conservative management. Patient's blood pressure improved, and again was seen by speech therapy team because of dysphasia. Eventually after some trials and some further evaluations he was able to be placed on honey thick and nectar pured diet which he tolerated by the day of discharge. Both his leukocytosis and fevers resolved. The discussion of hospice versus SNF placement was brought to the family however they refused this as they just wanted to take the patient home despite his multiple medical comorbidities. They have already been in contact and have the use the services of a prior 24-hour care service agency which they will reestablish again with upon discharge. Patient will be discharged home today in current condition with the 24-hour home health care set up as well. See below for full list of discharge medications. Patient will go home with a Esposito catheter as well and 2 more days of antifungal medication. Home Meds Active Scripts Atorvastatin* (Atorvastatin*) 40 Mg Tablet, 40 MG PO HS, #30 TAB 2 Refills Prov:RAHIESSENCE S. 02/04/19 Metoprolol Tartrate* (Lopressor*) 25 Mg Tab, 25 MG PO BID, #60 TAB 2 Refills Prov:RAHI,ESSENCE S. 02/04/19 Balsam [place] Oil (Venelex Ointment) 60 Gm Oint..gm., 1 APPLIC TOP BID, #1 TUB Prov:RATEJAL RAHMANEEP S. 02/04/19 Fluconazole* (Diflucan*) 100 Mg Tablet, 100 MG PO DAILY for 2 Days, #2 TAB Prov:TEJAL WALLISEEP S. 02/04/19 Reported Medications Insulin Degludec (Tresiba Flextouch U-200) 200 Unit/1 Ml Insuln.pen, 0 SQ DAILY 18-20 UNITS 01/28/19 Linagliptin-Metformin (Jentadueto) 2.5-1,000 Mg Tablet, 1 TAB PO BID, TAB 01/28/19 Propranolol Hcl* (Propranolol Hcl*) 20 Mg Tablet, 20 MG PO BID, TAB 01/28/19 Glimepiride* (Glimepiride*) 4 Mg Tablet, 4 MG PO WITH BREAKFAST DINNE, TAB 01/28/19 Tamsulosin Hcl* (Tamsulosin Hcl*) 0.4 Mg Cap.er.24h, 0.4 MG PO HS, CAP 01/28/19 Entacapone* (Entacapone*) 200 Mg Tablet, 200 MG PO TID, TAB 01/28/19 Pramipexole* (Pramipexole*) 0.125 Mg Tablet, 0.125 MG PO DAILY, TAB 01/28/19 Dutasteride* (Avodart*) 0.5 Mg Capsule, 0.5 MG PO QAM, CAP 01/28/19 Rivaroxaban* (Xarelto*) 20 Mg Tablet, 20 MG PO WITH DINNER, TAB 01/28/19 Discontinued Reported Medications Digoxin* (Digitek*) 250 Mcg Tablet, 0.25 MG PO DAILY, TAB 01/28/19 Losartan-Hydrochlorothiazide (Losartan-HCTZ) 50-12.5 Mg Tab, 1 TAB PO DAILY, TAB 01/28/19 Insulin [place]ludec (Tresiba Flextouch U-100) 100 Unit/1 Ml Insuln.pen, 18-20 UNIT SQ DAILY 08/10/18 Glimepiride* (Glimepiride*) 4 Mg Tablet, 4 MG PO WITH BREAKFAST DINNE, TAB 08/10/18 Dutasteride* (Avodart*) 0.5 Mg Capsule, 0.5 MG PO DAILY, CAP 08/10/18 Linagliptin/Metformin HCl (Jentadueto Xr 2.5 mg-1,000 mg) 1 Each Tab.bp.24h, 1 EACH PO BID, TAB 08/10/18 Tamsulosin Hcl* (Tamsulosin Hcl*) 0.4 Mg Cap.er.24h, 0.4 MG PO HS, CAP 08/10/18 Pramipexole* (Pramipexole*) 0.125 Mg Tablet, 0.125 MG PO HS, TAB 08/10/18 Entacapone* (Entacapone*) 200 Mg Tablet, 200 MG PO TID, TAB 08/10/18 Discontinued Scripts Levofloxacin* (Levofloxacin*) 750 Mg Tablet, 750 MG PO DAILY for 8 Days, #8 TAB To complete 2 weeks therapy. Prov:PATO BELTRÁN NP 10/22/18 Rivaroxaban* (Xarelto*) 20 Mg Tablet, 20 MG PO WITH BREAKFAST, #30 TAB Prov:PATO BELTRÁN NP 10/22/18 Metoprolol Succinate* (Toprol XL*) 25 Mg Tab.sr.24h, 50 MG PO DAILY, #30 TAB Prov:PATO BELTRÁN NP 10/22/18 Losartan Potassium* (Cozaar*) 25 Mg Tablet, 25 MG PO DAILY, #30 TAB Prov:PATO BELTRÁN NP 10/22/18 Follow-up Plan Please take your medications as prescribed, follow diet recommendations as recommended by speech therapy team here, see your doctor in the clinic in the next 1-2 weeks. Primary Care Provider Not On Staff Doctor Pending Labs Laboratory Tests Test 02/03/19 16:47 3/24/19 22:56 02/04/19 02:33 02/04/19 08:39 Bedside 283 230 212 213 Glucose mg/dL (70-220) mg/dL (70-220) mg/dL (70-220) mg/dL (70-220) Test 02/04/19 12:33 Bedside 205 Glucose mg/dL (70-220) ESSENCE WALLIS Feb 04, 2019 16:26
== END 2019-02-04 19:22 | disposition home health service (06) | DRG 698 ==
LOC: E/R 17:01 → ICU 19:41 → TEL 01-31 14:47 → PP2 02-03 04:03
PROVIDERS: ADMIT Family Medicine; ATTEND Hospitalist
PROC: 5A1935Z Respiratory Ventilation, Less than 24 Consecutive Hours (ICD-10-PCS; principal; 2019-01-28)
PROC: 0BH17EZ Insertion of Endotracheal Airway into Trachea, Via Natural or Artificial Opening (ICD-10-PCS; 2019-01-28)
PROC: 02H633Z Insertion of Infusion Device into Right Atrium, Percutaneous Approach (ICD-10-PCS; 2019-01-28)
DX: T83.511A Infection and inflammatory reaction due to indwelling urethral catheter, initial encounter (principal); A41.9 Sepsis, unspecified organism; R65.21 Severe sepsis with septic shock; G93.41 Metabolic encephalopathy; I21.4 Non-ST elevation (NSTEMI) myocardial infarction; J96.01 Acute respiratory failure with hypoxia; B37.1 Pulmonary candidiasis; N13.8 Other obstructive and reflux uropathy; B37.49 Other urogenital candidiasis; I42.9 Cardiomyopathy, unspecified; Y73.2 Prosthetic and other implants, materials and accessory gastroenterology and urology devices associated with adverse incidents; G20 Parkinson's disease; I10 Essential (primary) hypertension; E11.9 Type 2 diabetes mellitus without complications; I25.10 Atherosclerotic heart disease of native coronary artery without angina pectoris; F02.80 Dementia in other diseases classified elsewhere, unspecified severity, without behavioral disturbance, psychotic disturbance, mood disturbance, and anxiety; I48.0 Paroxysmal atrial fibrillation; N40.1 Benign prostatic hyperplasia with lower urinary tract symptoms; D64.9 Anemia, unspecified; R13.10 Dysphagia, unspecified
CPT/HCPCS: 31500; 36415; 36600; 71045; 74230; 76937; 80048; 80053; 80061; 80202; 81001; 82306; 82550; 82553; 82803; 82962; 83036; 83605; 83735; 84100; 84443; 84484; 85025; 85610; 85730; 87040; 87070; 87081; 87086; 87400; 89220; 92526; 92610; 92611; 93005; 93306; 94002; 94003; 94770; 96374; 96375; 97110; 97162; 97530; C9113; J1815; J1940; J2543; J3370; J3475; J7030